=== PATIENT | female | born 2000 | race Caucasian/White ===

== ENCOUNTER 2024-07-22 09:01 | Emergency (ER) | payer OTHER, SELFPAY ==
--- NOTE | 2024-07-22 09:18 | ED.URI ---
HPI - URI/Sore Throat General Chief Complaint: Upper Respiratory Infection Stated Complaint: Congestion / cough / sore throat Time Seen by Provider: 07/22/24 09:18 History of Present Illness HPI Narrative: 24-year-old female presented for complaint of sore throat, nasal congestion and nonproductive cough. Onset yesterday. Denies shortness of breath, wheezing, vomiting, diarrhea, fever or lethargy. Has not taken anything for symptoms. She is 15 weeks gestation. Spoke with OBGYN who recommended evaluation. Related Data Home Medications ?Medication ?Instructions ?Recorded ?Confirmed ?Last Taken ?Type vit no.95-ferrous 1 tablet PO DAILY 07/22/24 07/22/24 Unknown History fumarate 28 mg-folic acid 800 mcg tablet () Allergies Allergy/AdvReac Type Severity Reaction Status Date / Time No Known Allergies Allergy Verified 07/22/24 09:19 Review of Systems Review of Systems: CONSTITUTIONAL: Denies body aches, fever, chills, or sweats. EYES: Denies visual changes, redness, or discharge. ENT: Reports rhinorrhea, congestion, sore throat CARDIOVASCULAR: Denies chest pain, palpitations, or edema. RESPIRATORY: Reports cough Denies dyspnea. GASTROINTESTINAL: Denies abdominal pain, nausea, vomiting, or diarrhea. MUSCULOSKELETAL: Denies back pain, joint pain, or myalgia. NEUROLOGIC: Denies headache Exam Narrative: GENERAL: well-appearing, no acute distress. EYES: conjunctivae clear ENT: Mucous membranes moist. TM pearly leo with normal light reflex bilaterally; no tragal tenderness. Oropharynx erythematous without lesions. Tonsils enlarged 1+ and without exudate. No drooling, no hoarseness, no trismus, uvula midline. No tripod positioning, hot potato voice, or soft palate swelling. NECK: Supple. No lymphadenopathy CHEST: Clear to auscultation, breath sounds equal. No respiratory distress, speaks in full sentences. HEART: Regular rate and rhythm. SKIN: Warm, dry, no rash. NEURO: Alert and oriented x3. Course Course Emergency Course: Patient is aware of diagnosis, understands and agrees to treatment plan. Anticipatory guidance given. Patient agrees to follow-up as directed and is aware of reasons to seek care at the emergency department. Portions of this record may have been created with voice recognition software Level of Care: Express Care Visit Vital Signs Vital signs: Vital Signs Temperature 99 F 07/22/24 09:19 Pulse Rate 95 07/22/24 09:19 Respiratory Rate 18 07/22/24 09:19 Blood Pressure 120/71 07/22/24 09:19 Pulse Oximetry 100 07/22/24 09:19 Oxygen Delivery Room Air 07/22/24 09:19 Temperature 99 F 07/22/24 09:19 Pulse Rate 95 07/22/24 09:19 Respiratory Rate 18 07/22/24 09:19 Blood Pressure 120/71 07/22/24 09:19 Pulse Oximetry 100 07/22/24 09:19 Oxygen Delivery Room Air 07/22/24 09:19 MDM - URI/Sore Throat MDM Narrative Medical decision making narrative: Results of negative flu, COVID, strep result reviewed with pt. Advise supportive treatments. Patient is appropriate for outpatient treatment and follow-up. Differential Diagnosis Differential diagnosis: Likely upper respiratory infection, sinusitis, viral infection, influenza and pharyngitis Discharge Plan Discharge Clinical Impression: Upper respiratory infection Patient Disposition: Home, Self-Care Condition: Stable Instructions: Upper Respiratory Infection (ED) Additional Instructions: Flu and COVID negative. Rapid strep swab was negative today You will be notified in a few days if the culture comes back positive for strep, and appropriate antibiotics will be called in at that time. if symptoms are due to a viral illness, it is not treated with antibiotics. Viral symptoms can be present for up to 10-14 days. Recommendations: Tract your OBGYN before taking any jfky-bgy-nzpbuqt medications during Flonase spray and Zyrtec for sinus congestion Cough syrup may cause drowsiness; avoid driving or take it at night time. Tylenol every 8 hours as needed for pain/fever Soft foods, cool liquids, warm tea. Gargle with warm saltwater twice a day. Chloraseptic spray and throat lozenges. Rest and stay hydrated. --Follow up with your PCP and spray technician --Go to the ER immediately if you cannot swallow your saliva, trouble breathing/wheezing, throat swelling, pain is persistent and severe Patient Language: Slovak Prescriptions: No Action PNV cmb#95-ferrous fumarate-FA [] 28 mg iron- 800 mcg tablet 1 tablet PO DAILY Follow-up/Referrals: Manolo,Abram Hunter MD [Primary Care Provider] -
[2024-07-22 09:19] VITALS: BP 120/71; PULSE 95; RESP 18; TEMP 37.2; O2SAT 100
[2024-07-22 10:16] LABS: EDINFLUASCREEN Negative (Negative); EDINFLUBSCREEN Negative (Negative)
[2024-07-22 10:16] LABS: EDCOVIDSCREEN Negative (Negative)
[2024-07-22 10:17] LABS: EDSTREPNEGPOS1 Negative (Negative)
== END 2024-07-22 10:08 | disposition home or self-care (01) ==
PROVIDERS: Emergency Provider Nurse Practitioner Family; PCP Family Medicine
DX: O99.512 Diseases of the respiratory system complicating pregnancy, second trimester (principal); Z3A.15 15 weeks gestation of pregnancy; J06.9 Acute upper respiratory infection, unspecified; Z20.822 Contact with and (suspected) exposure to COVID-19
CPT/HCPCS: 87081; 87426; 87804; 87880; 99203; G0463

== ENCOUNTER 2024-07-23 13:15 | Emergency (ER) | payer OTHER, SELFPAY ==
[2024-07-23 13:57] VITALS: BP 133/88; PULSE 102; RESP 18; TEMP 36.9; O2SAT 100
--- NOTE | 2024-07-23 15:53 | ED_ITS ---
HPI - General Adult General Chief complaint: Nausea/Vomiting/Diarrhea <Edis Mccauley PA-C - Last Filed: 07/23/24 16:49> Stated complaint: want checked COVID flu RSV negative <Edis Mccauley PA-C - Last Filed: 07/23/24 16:49> Time Seen by Provider: 07/23/24 18:43 <Edis Mccauley PA-C - Last Filed: 07/23/24 16:49> Focused HPI: This is a 24-year-old female who is approximately 6 weeks who presents to the ED for chief complaint of N/V/D beginning last night. Patient reports that she has had onset of mildly productive cough as well hoarse voice. States she has had around 5 episodes of vomiting in the last 12 or so hours. Difficult to keep anything down. Has not had any hyperemesis gravidarum previously. States she had negative viral swabs at urgent care yesterday. She was told to go to the ER by her OB to have her lab work checked to make sure she is not dehydrated. Denies fevers, chills, abdominal pain, vaginal symptoms. GENERAL: Well-appearing, well-nourished, and in no acute distress. HEAD: Normocephalic, atraumatic. CHEST: Clear to auscultation. No respiratory distress. HEART: Regular rate and rhythm. NEURO: Alert and oriented x3. Patient screened in triage and initial orders placed. Additional care and disposition to be based upon diagnostic testing and treatment. <Edis Mccauley PA-C - Last Filed: 07/23/24 16:49> Source: patient <Edis Mccauley PA-C - Last Filed: 07/23/24 16:49> Mode of arrival: ambulatory <SHERRILL Torres Last Filed: 07/23/24 16:49> Limitations: no limitations <SHERRILL Torres Last Filed: 07/23/24 16:49> History of Present Illness HPI narrative: Agree with the above note. Denies vaginal bleeding, leakage of fluids, known fever, abdominal pain. This is . Her OBGYN is at [facility]. Denies dysuria, hematuria. <Judie Love PA-C - Last Filed: 07/24/24 03:44> Related Data Home medications: Home Medications ?Medication ?Instructions ?Recorded ?Confirmed ?Last Taken ?Type vit no.95-ferrous 1 tablet PO DAILY 07/22/24 07/22/24 Unknown History fumarate 28 mg-folic acid 800 mcg tablet () <SHERRILL Torres Last Filed: 07/23/24 16:49> Allergies/adverse reactions: Allergies Allergy/AdvReac Type Severity Reaction Status Date / Time No Known Allergies Allergy Verified 07/22/24 09:19 <SHERRILL Torres Last Filed: 07/23/24 16:49> Review of Systems 2 Review of Systems: All systems reviewed & are unremarkable except as noted in HPI and below <Judie Love PA-C - Last Filed: 07/24/24 03:44> Exam 2 Narrative: GENERAL: Well-appearing, well-nourished, and in no acute distress. HEAD: Normocephalic, atraumatic. EYES: PERRLA and EOMI. ENT: Nares clear, no rhinorrhea or epistaxis. Mucous membranes moist. NECK: Supple. CHEST: Clear to auscultation. No respiratory distress. HEART: Regular rate and rhythm. No murmur heard. Normal peripheral pulses. ABDOMEN: Soft, nontender, nondistended, normal active bowel sounds. No rebound, guarding or rigidity. No CVA tenderness EXTREMITIES: Normal range of motion. No edema. SKIN: Warm, dry, no rash. NEURO: No focal deficits. Alert and oriented x3 <Judie Love PA-C - Last Filed: 07/24/24 03:44> Course Vital Signs Vital signs: Vital Signs Temperature 98.5 F 07/23/24 13:57 Pulse Rate 102 H 07/23/24 13:57 Respiratory Rate 18 07/23/24 13:57 Blood Pressure 133/88 07/23/24 13:57 Pulse Oximetry 100 07/23/24 13:57 Temperature 98.2 F 07/23/24 21:33 Pulse Rate 99 07/23/24 21:33 Respiratory Rate 18 07/23/24 21:33 Blood Pressure 122/82 07/23/24 21:33 Pulse Oximetry 99 07/23/24 21:33 <Edis Mccauley PA-C - Last Filed: 07/23/24 16:49> Vital Signs Temperature 98.5 F 07/23/24 13:57 Pulse Rate 102 H 07/23/24 13:57 Respiratory Rate 18 07/23/24 13:57 Blood Pressure 133/88 07/23/24 13:57 Pulse Oximetry 100 07/23/24 13:57 Temperature 98.2 F 07/23/24 21:33 Pulse Rate 99 07/23/24 21:33 Respiratory Rate 18 07/23/24 21:33 Blood Pressure 122/82 07/23/24 21:33 Pulse Oximetry 99 07/23/24 21:33 <Judie Love PA-C - Last Filed: 07/24/24 03:44> Medical Decision Making MDM Narrative Medical decision making narrative: 24-year-old female who is currently 15 weeks presents to the emergency department for cough, congestion, sore throat, generalized malaise, nausea and vomiting for the past few days. See HPI for further history. Triage vitals with mild tachycardia 102, otherwise unremarkable. She is afebrile and nontoxic appearing resting comfortably in exam bed. No abdominal pain or cramping, no vaginal bleeding or leakage of fluids. Patient reportedly had negative COVID, flu and strep swabs at urgent care.. She did test positive for RSV today. Lung sounds are clear on exam. Her lab work shows no leukocytosis or anemia. Chemistries significant for bicarb of 18 with anion gap of 13, normal glucose. Findings consistent with dehydration. Urinalysis shows 11-20 wbc's, 1+ leuk esterase, 4+ ketonuria and 2+ bacteriuria. Urine culture pending. She denies signs or symptoms of UTI, however given will treat with Keflex for asymptomatic bacteriuria . Phosphorus and magnesium are normal. Patient was updated on workup. She received IV fluids and Reglan with significant improvement. She is tolerating p.o. intake. Feel she is safe to be discharged home with supportive care. Discussed bland diet, increase fluid intake and close follow-up with PCP. Keflex, doxylamine of the right lung sent to pharmacy. Return precautions were discussed. She is agreeable with the plan verbalized understanding. Discharged in stable condition <SHERRILL Trinidad Last Filed: 07/24/24 03:44> Vital Signs Vital Signs: Vital Signs Temperature 98.5 F 07/23/24 13:57 Pulse Rate 102 H 07/23/24 13:57 Respiratory Rate 18 07/23/24 13:57 Blood Pressure 133/88 07/23/24 13:57 Pulse Oximetry 100 07/23/24 13:57 Temperature 98.2 F 07/23/24 21:33 Pulse Rate 99 07/23/24 21:33 Respiratory Rate 18 07/23/24 21:33 Blood Pressure 122/82 07/23/24 21:33 Pulse Oximetry 99 07/23/24 21:33 <SHERRILL Torres Last Filed: 07/23/24 16:49> Vital Signs Temperature 98.5 F 07/23/24 13:57 Pulse Rate 102 H 07/23/24 13:57 Respiratory Rate 18 07/23/24 13:57 Blood Pressure 133/88 07/23/24 13:57 Pulse Oximetry 100 07/23/24 13:57 Temperature 98.2 F 07/23/24 21:33 Pulse Rate 99 07/23/24 21:33 Respiratory Rate 18 07/23/24 21:33 Blood Pressure 122/82 07/23/24 21:33 Pulse Oximetry 99 07/23/24 21:33 <SHERRILL Trinidad Last Filed: 07/24/24 03:44> Lab Data Result diagrams: 07/23/24 16:49 07/23/24 16:50 <SHERRILL Torres Last Filed: 07/23/24 16:49> Labs: Lab Results 07/23/24 07/23/24 07/23/24 Range/Units 16:49 16:50 16:56 WBC 5.6 (4.5-10.0) K/mm3 RBC 4.24 (4.2-5.4) M/mm3 Hgb 12.9 (12.0-15.0) g/dL Hct 36.8 L (37.0-47.0) % MCV 86.8 (80-100) fl MCH 30.4 (26-34) pg MCHC 35.1 (32-36) g/dl RDW 12.0 (11.5-14.5) % Plt Count 209 (150-375) k/mm3 MPV 10.8 H (7.4-10.4) fl Immature Gran % (Auto) 0.2 (0-0.5) % Neut % (Auto) 78.9 H (45.5-73.1) % Lymph % (Auto) 11.7 L (18.3-44.2) % [place] % (Auto) 8.6 H (2.6-8.5) % Eos % (Auto) 0.2 (0-4.4) % Baso % (Auto) 0.4 (0.2-1.2) % Lymph # (Auto) 0.65 L (0.9-3.2) K/mm3 [place] # (Auto) 0.5 (0.1-0.6) K/mm3 Eos # (Auto) 0.0 (0-0.3) K/mm3 Baso # (Auto) 0.0 (0.0-0.1) K/mm3 Abs Immat Gran (auto) 0.01 (0.00-0.031) K/mm3 Absolute Neuts (auto) 4.4 (1.3-6.7) K/mm3 Absolute Nucleated RBC 0.000 (0.0-0.012) K/mm3 Nucleated RBC % 0.0 (0.0-0.2) % Sodium Cancelled 134 L Potassium Cancelled 3.8 Chloride Cancelled 103 Carbon Dioxide Cancelled 18 L Anion Gap Cancelled 13 H BUN Cancelled 7 Creatinine Cancelled 0.38 L Estim Creat Clear Calc Cancelled 159 Estimated GFR Cancelled > 60 Glucose Cancelled 77 Calcium Cancelled 9.5 Phosphorus 3.7 (2.5-4.5) mg/dL Magnesium 2.2 (1.6-2.3) mg/dL Total Bilirubin Cancelled 0.8 AST Cancelled 29 ALT Cancelled 13 Alkaline Phosphatase Cancelled 74 Total Protein Cancelled 8.0 Albumin Cancelled 4.7 Urine Color Yellow (Yellow) Urine Appearance Cloudy H (Clear) Urine pH 5.5 (5.0-9.0) Ur Specific [place] 1.026 (1.001-1.035) Urine Protein Trace (Negative) mg/dL Urine Glucose (UA) Negative (Negative) mg/dL Urine Ketones 4+ H (Negative) mg/dL Ur Blood (Man) Negative (Negative) Urine Nitrate Negative (Negative) Urine Bilirubin Negative (Negative) Urine Urobilinogen 0.2 (<2.0) mg/dL Leukocyte Esterase Rfl 1+ H (Negative) BERNA/UL Urine RBC 0-2 (0-2) /hpf Urine WBC 11-20 H (0-3) /hpf Ur Squamous Epith Cells Occasional (Few) /hpf Urine Bacteria 2+ H /hpf Urine Casts 0-2 Influenza A (RT-PCR) Negative (Negative) Influenza B (RT-PCR) Negative (Negative) RSV (RT-PCR) Positive A (Negative) SARS-CoV-2 RNA (RT-PCR) Negative (Negative) <Edis Mccauley PA-C - Last Filed: 07/23/24 16:49> Lab Results 07/23/24 07/23/24 07/23/24 Range/Units 16:49 16:50 16:56 WBC 5.6 (4.5-10.0) K/mm3 RBC 4.24 (4.2-5.4) M/mm3 Hgb 12.9 (12.0-15.0) g/dL Hct 36.8 L (37.0-47.0) % MCV 86.8 (80-100) fl MCH 30.4 (26-34) pg MCHC 35.1 (32-36) g/dl RDW 12.0 (11.5-14.5) % Plt Count 209 (150-375) k/mm3 MPV 10.8 H (7.4-10.4) fl Immature Gran % (Auto) 0.2 (0-0.5) % Neut % (Auto) 78.9 H (45.5-73.1) % Lymph % (Auto) 11.7 L (18.3-44.2) % [place] % (Auto) 8.6 H (2.6-8.5) % Eos % (Auto) 0.2 (0-4.4) % Baso % (Auto) 0.4 (0.2-1.2) % Lymph # (Auto) 0.65 L (0.9-3.2) K/mm3 [place] # (Auto) 0.5 (0.1-0.6) K/mm3 Eos # (Auto) 0.0 (0-0.3) K/mm3 Baso # (Auto) 0.0 (0.0-0.1) K/mm3 Abs Immat Gran (auto) 0.01 (0.00-0.031) K/mm3 Absolute Neuts (auto) 4.4 (1.3-6.7) K/mm3 Absolute Nucleated RBC 0.000 (0.0-0.012) K/mm3 Nucleated RBC % 0.0 (0.0-0.2) % Sodium Cancelled 134 L Potassium Cancelled 3.8 Chloride Cancelled 103 Carbon Dioxide Cancelled 18 L Anion Gap Cancelled 13 H BUN Cancelled 7 Creatinine Cancelled 0.38 L Estim Creat Clear Calc Cancelled 159 Estimated GFR Cancelled > 60 Glucose Cancelled 77 Calcium Cancelled 9.5 Phosphorus 3.7 (2.5-4.5) mg/dL Magnesium 2.2 (1.6-2.3) mg/dL Total Bilirubin Cancelled 0.8 AST Cancelled 29 ALT Cancelled 13 Alkaline Phosphatase Cancelled 74 Total Protein Cancelled 8.0 Albumin Cancelled 4.7 Urine Color Yellow (Yellow) Urine Appearance Cloudy H (Clear) Urine pH 5.5 (5.0-9.0) Ur Specific [place] 1.026 (1.001-1.035) Urine Protein Trace (Negative) mg/dL Urine Glucose (UA) Negative (Negative) mg/dL Urine Ketones 4+ H (Negative) mg/dL Ur Blood (Man) Negative (Negative) Urine Nitrate Negative (Negative) Urine Bilirubin Negative (Negative) Urine Urobilinogen 0.2 (<2.0) mg/dL Leukocyte Esterase Rfl 1+ H (Negative) BERNA/UL Urine RBC 0-2 (0-2) /hpf Urine WBC 11-20 H (0-3) /hpf Ur Squamous Epith Cells Occasional (Few) /hpf Urine Bacteria 2+ H /hpf Urine Casts 0-2 Influenza A (RT-PCR) Negative (Negative) Influenza B (RT-PCR) Negative (Negative) RSV (RT-PCR) Positive A (Negative) SARS-CoV-2 RNA (RT-PCR) Negative (Negative) <Judie Love PA-C - Last Filed: 07/24/24 03:44> Discharge Plan Discharge Clinical Impression: Respiratory syncytial virus (RSV), Dehydration, Asymptomatic bacteriuria during <Edis Mccauley PA-C - Last Filed: 07/23/24 16:49> Patient Disposition: Home, Self-Care <SHERRILL Torres Last Filed: 07/23/24 16:49> Condition: Stable <SHERRILL Torres Last Filed: 07/23/24 16:49> Instructions: Antibiotic Form, Dehydration (ED), RSV (Respiratory Syncytial Virus) Infection (ED) <SHERRILL Torres Last Filed: 07/23/24 16:49> Additional Instructions: Please make sure to drink plenty of fluids including water, Gatorade and Pedialyte. Take Tylenol as needed for the aches and pain. Take the antibiotic as directed. Follow-up closely with her primary care provider. Return to the emergency department if you develop a fever of 100.4 or greater, abdominal pain, vaginal bleeding or leakage of fluids, you are unable to tolerate food or fluids, or other concerning symptoms. Take the dexylamine as needed for nausea and vomiting. If nausea and vomiting persists, take metoclopramide. <SHERRILL Torres Last Filed: 07/23/24 16:49> Patient Language: Mexican <SHERRILL Torres Last Filed: 07/23/24 16:49> Prescriptions: New cephalexin 500 mg capsule 500 mg PO Q6H Qty: 28 0RF doxylamine-pyridoxine (vit B6) 10-10 mg tablet,delayed release (DR/EC) 1 tablet PO BID Qty: 30 0RF metoclopramide HCl 10 mg tablet 10 mg PO Q6H PRN (Reason: nausea and vomiting) Qty: 10 0RF No Action PNV cmb#95-ferrous fumarate-FA [] 28 mg iron- 800 mcg tablet 1 tablet PO DAILY <SHERRILL Torres Last Filed: 07/23/24 16:49> Follow-up/Referrals: Manolo,Abram Hunter MD [Primary Care Provider] - <SHERRILL Torres Last Filed: 07/23/24 16:49>
[2024-07-23 17:01] LABS: Basophils Percent Auto 0.4 % (0.2-1.2); Eosinophils Percent Auto 0.2 % (0-4.4); Hematocrit 36.8 % (37.0-47.0); Hemoglobin 12.9 g/dL (12.0-15.0); Immature Granulocyte Absolute 0.01 K/mm3 (0.00-0.031); Immature Granulocyte Percent A 0.2 % (0-0.5); Lymphocytes Absolute Auto 0.65 K/mm3 (0.9-3.2); Lymphocytes Percent Auto 11.7 % (18.3-44.2); Mean Corpuscular HGB Conc 35.1 g/dl (32-36); Mean Corpuscular Hemoglobin 30.4 pg (26-34); Mean Corpuscular Volume 86.8 fl (80-100); Mean Platelet Volume 10.8 fl (7.4-10.4); Monocytes Absolute Auto 0.5 K/mm3 (0.1-0.6); Monocytes Percent Auto 8.6 % (2.6-8.5); Neutrophils Absolute Auto 4.4 K/mm3 (1.3-6.7); Neutrophils Percent Auto 78.9 % (45.5-73.1); Platelet Count Result 209 k/mm3 (150-375); Red Blood Count 4.24 M/mm3 (4.2-5.4); White Blood Count 5.6 K/mm3 (4.5-10.0)
[2024-07-23 17:08] LABS: Add Urine Microscopic? YES; Appearance Urine Cloudy (Clear); Bacteria Urine 2+ /hpf; Bilirubin Urine Negative (Negative); Blood Urine Negative (Negative); Color Urine Yellow (Yellow); Glucose Urine UA Negative (Negative); Ketones Urine 4+ mg/dL (Negative); Leukocyte Esterase Ur 1+ LEU/UL (Negative); Nitrate Urine Negative (Negative); Non Pathogenic Casts 0-2; Protein Urine Trace mg/dL (Negative); RBC Urine 0-2 /hpf (0-2); Specific Grav Ur 1.026 (1.001-1.035); Squamous Epithelial Cell Urine Occasional /hpf (Few); Urobilinogen Urine 0.2 mg/dL (<2.0); pH Urine 5.5 (5.0-9.0)
[2024-07-23 17:12] LABS: Alanine Aminotransferase 13 U/L (6-35); Albumin Level 4.7 g/dL (3.5-5.1); Alkaline Phosphatase 74 U/L (38-126); Anion Gap 13 mmol/L (4-12); Aspartate Amino Transferase 29 U/L (14-36); Bilirubin,Total 0.8 mg/dL (0.2-1.3); Blood Urea Nitrogen 7 mg/dL (7-17); Calcium 9.5 mg/dL (8.4-10.2); Carbon Dioxide 18 mmol/L (22-30); Chloride 103 mmol/L (98-107); Estimated CRCL calculation 159 ml/min; Estimated Glomerular Filt Rate > 60; Glucose 77 mg/dL (65-110); Magnesium 2.2 mg/dL (1.6-2.3); Phosphorus 3.7 mg/dL (2.5-4.5); Potassium 3.8 mmol/L (3.4-5.0); Sodium 134 mmol/L (137-145)
[2024-07-23 17:35] LABS: Influenza A QL RT-PCR Negative (Negative); Influenza B QL RT-PCR Negative (Negative); RSV RNA, RT-PCR Positive (Negative); SARS-CoV-2 RNA PCR Negative (Negative)
[2024-07-23 17:47] VITALS: BP 127/79; PULSE 104; RESP 20; TEMP 36.9; O2SAT 100
[2024-07-23 19:46] VITALS: BP 124/83; PULSE 106; RESP 20; TEMP 36.8; O2SAT 100
[2024-07-23] MEDS: METOCLOPRAMIDE HCL INJ 10 MG/2 ML VIAL IV PUSH (19:50)
[2024-07-23] MEDS: LACTATED RINGERS 1,000 ML 999 ML IV CONT (19:52)
[2024-07-23 21:33] VITALS: BP 122/82; PULSE 99; RESP 18; TEMP 36.8; O2SAT 99
== END 2024-07-23 21:34 | disposition home or self-care (01) ==
PROVIDERS: Physician Assistant; Emergency Provider Physician Assistant; PCP Family Medicine
DX: O98.512 Other viral diseases complicating pregnancy, second trimester (principal); R05.9 Cough, unspecified; B97.4 Respiratory syncytial virus as the cause of diseases classified elsewhere; Z20.822 Contact with and (suspected) exposure to COVID-19; Z3A.15 15 weeks gestation of pregnancy
CPT/HCPCS: 36415; 80053; 81001; 83735; 84100; 85025; 87086; 87637; 96361; 96374; 99284; J2765; J7120

== ENCOUNTER 2024-08-23 12:33 | Emergency (ER) | payer OTHER, SELFPAY ==
--- OUTSIDE RECORDS SUMMARY | 2024-08-23 12:45 | XMS_ITS | Encounter Summary ---
Author Organization 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 Procedures US OB detail anatomy single or first gestation Michelle Anaya MD [address] [facility] [address] [place] [address] Phone: tel: fax: [facility] [address] [place] [address] Referral ID Status Reason Start Date Expiration Date Visits Re quested Visits Authorized [id number] Closed 08/10/2024 09/09/2025 1 1 UCT LINE MANAGER Reason for Visit * Diagnostic Imaging (Routine) - Closed Specialty Diagnoses / Procedures Referred By Contiraida t Referred To Contact Diagnoses 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 Procedures US OB detail anatomy single or first gestation Michelle Anaya MD [address] [place] [address] [place] [address] Phone: tel: fax: [place] [address] [place] [address] Referral ID Status Reason Start Date Expiration Date Visits Re quested Visits Authorized [id number] Closed 08/10/2024 09/09/2025 1 1 Encounter Details Date Type Department Care Team (Latest Contact Info) Description 08/23/2024 9:39 AM PRODUCT LINE MANAGER Hospital Encounter [facility] Maternal Medicine Ultrasound[facility] [address] [place] [address] 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 Monthly or less 12/29/2020 Q2: How many drinks containi ng alcohol do you have on a typical day when you are drinking? 1 or 2 12/29/2020 Q3: How often do you have si x or more drinks on one occasion? Monthly 12/29/2020 Personal Safety Answer Date Recorded Have you ever been in or are you currently in a harmful physical or emotional relationship or is someone making you feel afraid or unsafe? Denies 06/29/2024 Estimated Date of Delivery Comme nts Yes 01/09/2025 Based on last me nstrual period of 04/04/2024 Sex and Gender Information Value Date Recorded Sex Assigned at Not on file Legal Sex Female 1:30 AM PRODUCT LINE MANAGER Gender Identity Not on file Sexual Orientation Straight 08/21/2020 10 :21 AM PRODUCT LINE MANAGER documented as of this encounter Plan of Treatment Upcoming Encounters Date Type Department Care Team (Late st Contact Info) Description 01/12/2025 Hospital Encounter [facility] [address] [place] [id number] Michelle Anaya MD [address] [facility] [address] [place] [address] documented as of this encounter Procedures Procedure Name Priority Date/Time Associated Diagnosis Comments US OB DETAIL ANATOMY SINGLE OR FIRST GESTATION Schedule Routine, Read Routine (OP Routine) 08/23/2024 11:29 AM PRODUCT LINE MANAGER 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 documented in this encounter Results * US OB detail anatomy single or first gestation (08/23/2024 11:29 AM PRODUCT LINE MANAGER) Fetus# Fetus1 VIEWPOINT Estimated Weight 300 g&grams VIEWPOINT Placenta Details anterior VIEWPOINT Presentation Breech VIEWPOINT Anatomical Region Laterality Modality Body N/A Ultrasound 08/23/2024 10:1 0 AM PRODUCT LINE MANAGER Impressions 08/23/2024 12:04 PM PRODUCT LINE MANAGER SIUP @ 20w 0d with positive cardiac activity. position is Breech size is consistent with the clinically established dates. AGA growth is noted with EFW at the 24%. There is a small area of increased echogenicity of the bowel note and this is persistent with harmonics off and gain turned down. There are no structural malformations identified. Normal fluid. The placenta is anterior, there are no placental abnormalities identified. The findings were discussed with the patient as live scanning was necessary to appropriately evaluate for echogenic bowel. The patient reports bleeding in the first trimester. She has had low risk cfDNA. We briefly discussed etiologies for echogenic bowel including bleeding but also infectious and genetic. She indicated she had discussed this with Dr. Anaya but they were waiting on US Before obtaining further labs. I reviewed the findings are minimal in terms of area of echogenicity but out of caution I will contact Dr. Anaya and obtain the remaining labs for infection and genetic (outlined below) and recommend followup in 4 weeks to re-evaluate. Narrative Procedure Note Kimi Billingsley DO - 08/23/2024 IMPRESSION: SIUP @ 20w 0d with positive cardiac activity. position is Breech size is consistent with the clinically established dates. AGA growth is noted with EFW at the 24%. There is a small area of increased echogenicity of the bowel note and thisis persistent with harmonics off and gain turned down. There are no structural malformations identified. Normal fluid. The placenta is anterior, there are no placental abnormalities identified. The findings were discussed with the patient as live scanning wasnecessary to appropriately evaluate for echogenic bowel. The patient reports bleeding in the first trimester. She has had low risk cfDNA. We briefly discussed etiologies for echogenic bowel including bleeding butalso infectious and genetic. She indicated she had discussed this with but they were waiting on US Before obtaining further labs. Ireviewed the findings are minimal in terms of area of echogenicity but outof caution I will contact Dr. Anaya and obtain the remaining labs forinfection and genetic (outlined below) and recommend followup in 4 weeksto re-evaluate. 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
--- OUTSIDE RECORDS SUMMARY | 2024-08-23 12:45 | XMS_ITS | Clinical Summary ---
Author Organization [facility] ospital Address [address] [place] [address] Care Team Providers Care Va Underwriter Name Role Phone Abram French MD Primary Care Provider [phone] Allergies No known active allergies Medications vit,[id number]- folic (PRENATABS RX) tablet tabletIndication s:Procreative counseling and advice using natural family planning Take 1 tablet by mouth daily 30 tablet 11 3 Active progesterone (PROMETRIUM) 200 mg capsule Take 1 capsule (200 mg total) by mouth nightly 30 capsule 3 4 Active Additional Information Patient not taking.Reported on 07/13/2024 nystatin cream 4 Active Xiidra 5 % dropperette 0.1 each (1 drop total) 2 (two) times a day 4 Active Active Problems Problem Noted Date Diagnosed Date Postcoital bleeding 06/30/2024 12 weeks gestation of 06/30/2024 Rh negative state in antepartum period 4 Susceptible to varicella (non-immune), currently 05/20/2024 Sebaceous cyst 05/11/2019 Assessment & Plan (05/11/2019 9:26 PM CDT): Pt was informed of possible complications of procedure and consent was obtained prior to procedure. Betadine skin prep 1% lido w/ epi was used to anesthetize the area. A #11 blade was used to make a 1.5cm incision. The cyst wall was identified and blunt dissection was used to completely remove cyst wall and content. Edges reapproximated well with 4 simple interrupted sutures using 4-0 ethilon. Pt tolerated procedure well without complications or incident. Routine dressing was applied. Pt was advised of routine suture care. Advised to call us with any concerns/complications. 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 Estimated Date of Delivery Comme nts Yes 01/09/2025 Based on last me nstrual period of 04/04/2024 Encounters Date Type Department Care Team Description 08/23/2024 9:39 AM GLASS SETTER Hospital Encounter [facility] Maternal Medicine Ultrasound-[facility] [address] [place] [address] 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 08/10/2024 3:00 PM GLASS SETTER [facility] [address] [phone] Michelle Barclay MD Encounter for supervision of other normal , second trimester (Primary Dx); 18 weeks gestation of ; 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 08/10/2024 2:00 PM GLASS SETTER Clinical Support [facility] [address] [place] [address] Encounter for anatomic survey (Primary Dx) 07/13/2024 10:45 AM GLASS SETTER Office Visit [facility] [address] [place] [address] Michelle Barclay MD Encounter for supervision of other normal , second trimester (Primary Dx); 14 weeks gestation of 06/29/2024 11:43 PM GLASS SETTER - 06/30/2024 1:09 AM GLASS SETTER Hospital Encounter [facility] [address] [place] [address] Michelle Barclay MD Postcoital bleeding (Primary Dx); 12 weeks gestation of Discharge Disposition: Discharge to home or self care 06/29/2024 Telephone [facility] [address] [phone] Afsaneh Garcia, RN Vaginal Bleeding - 06/23/2024 Telephone [facility] [address] [phone] Afsaneh Garcia, RN Test Results 06/14/2024 3:00 PM GLASS SETTER Office Visit [facility] [address] [address] Michelle Barclay MD Encounter for supervision of normal first in first trimester (Primary Dx); 9 weeks gestation of ; Encounter for procreative genetic counseling and testing 06/14/2024 2:30 PM GLASS SETTER Clinical Support [facility] [address] [phone] with inconclusive viability, single or unspecified fetus (Primary Dx) from Last 3 Months Immunizations Name Administration Dates Next Due DTaP, Unspecified 02/11/2005, 2,2000,06/03,2000 HPV, Unspecified 12/13/2013,01/08/2011 HPV9 03/02/2015 Hep A, Unspecified 02/11/2005,02/13/2004 Hep B, Unspecified 01/02/2001,2000, 000 HiB 05/04/2001, 1,2000,04/01 Influenza, Quadrivalent, Spl it, Preservative Free, Intramuscular 04/30/2017 MMR 02/11/2005,05/04/2001 Meningococcal ACWY, Unspecified 12/13/2013 Meningococcal B, OMV (Bexsero) 04/10/2017,2015 Meningococcal MCV4P (Menactra) 03/21/2016 Pneumococcal Conjugate 7-Valent 01/02/2001 Pneumococcal, Unspecified 2000,2000, 2000 Polio, Unspecified 02/11/2005, 1,2000,04/01 Tdap 01/08/2011 Varicella 01/08/2011,05/04/2001 Surgical History Surgery Date Site/Laterality Comments FINGER SURGERY 07/14/2010 - 07/13/2011 BREAST BIOPSY 08/14/2019 - 09/11/2019 Left benign. HYSTEROSCOPY 12/29/2020 Uterine Septum Resection Medical History Medical History Date Comments Acne Irregular periods Bicornuate uterus Headache Family History Medical History Relation Name Comments Hypertension Father Apolinar Breast cancer Father's Sister Ayla twice Cancer Father's Sister Ayla Endometriosis Father's Sister Ayla Infertile Father's Sister Ayla Glaucoma Maternal Grandmother No Known Problems Mother Anesthesia problems Neg Hx Colon cancer Neg Hx Deep vein thrombosis Neg Hx Ovarian cancer Neg Hx Uterine cancer Neg Hx Relation Name Status Comments Father Apolinar Alive Father's Sister Ayla Maternal Grandmother Mother Alive Social History Tobacco Use Types Packs/Day Years Used Date Smoking Tobacco: Never Smokeless Tobacco: Never Tobacco Cessation:Counseling Given: Not Answered Alcohol Use Standard Drinks/Week Comments Yes 0 [...] on file Legal Sex Female 1:30 AM GLASS SETTER Gender Identity Not on file Sexual Orientation Straight 08/21/2020 10 :21 AM GLASS SETTER Obstetrics History Para Term AB IAB SAB Ectopic Multiple Livin g Live Births 2 0 0 0 1 0 1 0 0 0 0 Date Outcome GA Total Labor Labor/2nd/3rd Weight Sex Type Anes PTL Megan A1 A5 Name Clin 05/2023 SAB Current Summary Episode Dates Number of Fetuses Estimated Date of Delivery 05/19/2024 - Present (08/23/2024) 01/09/2025 (set by Mago Starr PA on 05/19/2024 based on Last Menstrual Period on 04/04/2024) Dating Summary Based On ANTONIO GA Diff Last Menstrual Period on 04/04/2024 01/09/2025 Working Ultrasound on 05/19/2024 01/11/2025 -2d GA:6w1d Vitals Pregravid Weight Height TWG (As of 08/23/2024) Pregrav id BMI 162.6 cm (5' 4 ) Date GA Fund Present FHR Mvmt BP Weight Edema Alb Glu Ket Dil/ Eff/Sta 4 12w3d Inpatient data not displayed here. See encounter summary. Notes Progress Notes - Office Visi t - 08/10/2024 - GA:18w2d 08/10/2024 - 18w2d - Tracey olvera, Michelle Mccarty MD Return OB Note at 18w2d complicated by: 1) h/o uterine septum resection/bicornuate uterus: growths q4mo 2) migraines: tylenol 3) Rh neg 4) SAB x1: s/p progesterone 5) history of T21 on both sides (distant): NIPT low risk 6) Echogenic bowel-on anatomy US. Bleeding episode 06/2025. [facility] anatomy US f/u and labs ordered. CF testing negative S History of Present Illness Chaz is doing well. She reports feeling some movement from the baby, but it is not consistent. She notes that she usually has to be very still to feel the movement, typically when she is lying down. The patient had a bleeding episode about a month ago after intercourse. Was seen and evaluated and triage. No bleeding since then. she has no other symptoms or concerns at this time. O BP 122/64 (BP Location: Left arm, Patient Position: Sitting) Ht 162.6 cm (5' 4 ) Wt 133 lb (60.3 kg) LMP 04/04/2024 BMI 22.83 kg/m See ACOG Labs No results found for: GBS Plan Assessment & Plan Echogenic Bowel Detected on recent ultrasound, likely due to previous bleeding episode. No other abnormalities detected on ultrasound. Patient has negative carrier screen for cystic fibrosis and other genetic disorders. -Schedule follow-up ultrasound with maternal medicine in 3-4 weeks to reassess echogenic bowel and monitor growth. -Consider infectious workup if echogenic bowel persists on follow-up ultrasound. CMV and toxo ordered. Uterine Septum s/p resection -Continue regular visits and growth ultrasounds every 4 weeks due to h/o uterine septum. -Schedule growth ultrasound for 28-week visit. RTO 4 week(s) Michelle Barclay MD This patient has verbally consented to recording this visit in order to utilize AI technology in generating this note. S SETTER Progress Notes - Office Visi t - 07/13/2024 - GA:14w2d 07/13/2024 - 14w2d - Michelle Marino MD G1 @ 14.2wks here for LUCRETIA visit. Doing well. No further bleeding since the 3 days on 06/29. Feeling well. No movement yet. Placenta posterior. complicated by: 1) h/o uterine septum resection/bicornuate uterus: growths q4mo 2) migraines: tylenol 3) Rh neg 4) SAB x1: s/p progesterone 5) history of T21 on both sides (distant): NIPT low risk -discussed sleeping and movement -NIPT low risk. Anatomy US next visit S SETTER Progress Notes - Office Visi t - 06/14/2024 - GA:10w1d 06/14/2024 - 10w1d - Michelle Marino MD G1 @ 10.3wks here for LUCRETIA visit. Doing well. No complaints. complicated by: 1) h/o uterine septum resection/bicornuate uterus: growths q4mo 2) migraines: tylenol 3) Rh neg 4) SAB x1: Prometrium until 12 weeks 5) history of T21 on both sides (distant): desires NIPT -NIPT sent -growth US due to small septum and h/o resection -Continue progesterone until 12 weeks S SETTER S SETTER Progress Notes - Office Visi t - 05/19/2024 - GA:6w3d 05/19/2024 - 6w3d - Mago Starr PA Images from the original note were not included. Patient ID: Chaz Santiago is a 24 y.o. female Subjective Chief Complaint: New OB HPI Chaz is a 24 y.o. yo at 6wks by LMP (Patient's last menstrual period was 04/04/2024.) here for NOB visit. This is a planned and desired with Rebecca. Since LMP she reports mild fatigue. Denies any complications thus far during the . G1: SAB in 05/2023 Review of Systems Constitutional: Negative. Negative for fatigue. Respiratory: Negative for chest tightness and shortness of breath. Gastrointestinal: Negative for blood in stool, diarrhea, nausea and vomiting. Endocrine: Negative. Genitourinary: Negative for dyspareunia, dysuria, enuresis, frequency, menstrual problem, pelvic pain, vaginal bleeding, vaginal discharge and vaginal pain. Musculoskeletal: Negative for arthralgias, back pain, gait problem, joint swelling and myalgias. Skin: Negative for color change, pallor, rash and wound. Neurological: Negative. Hematological: Does not bruise/bleed easily. Psychiatric/Behavioral: Negative. Breast: Negative. Dating: Working Critiera: LMP Patient's last menstrual period was 04/04/2024. -> ANTONIO: 01/09/2025 US Date: 05/19/2024, Gest Age 6w1d -> ANTONIO: 01/11/2025 History: OB History Para Term AB Living 1 0 0 0 0 0 SAB IAB Ectopic Multiple Live Births 0 0 0 0 0 # Outcome Date GA Lbr Glenn/2nd Weight Sex Type Anes PTL Lv 1 Current Genetic History: [-] Mother's Age > 34 years [-] Sickle Cell Disease or Trait () [-] Thalasemia (French, Micronesian, Medit or ; MCV <80) [-] Trent Sachs Disease (Hinduism, Cajun, Slovak Jet) [X] Down Syndrome: patient's mothers aunt, FOB cousin (mom's side) [-] Neural Tube Defects (Meningomyelocele, Spina Bifida or Anencephaly) [-] Other Developmental Delay [-] Cystic Fibrosis [-] Drea's Chorea [-] Muscular Dystrophy [-] Hemophilia [-] Other Heritable condition 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 She has regular cycles. Her last pap smear was normal in 2020. She denies h/o STDS or HSV. Medical She has a past medical history of Acne, Bicornuate uterus, Headache, and Irregular periods. She has no past medical history of Awareness under anesthesia, Cardiac complication, Delayed emergence from general anesthesia, Hard to intubate, Malignant hyperthermia, PONV (postoperative nausea and vomiting), Postoperative delirium, or Pseudocholinesterase deficiency. Surgical She has a past surgical history that includes Finger surgery (2010); Breast biopsy (Left, 08/2019); and Hysteroscopy (12/29/2020). Social Patient Social History Tobacco Use Smoking Status Never Smokeless Tobacco Never Substance and Sexual Activity Drug Use Never Alcohol Use: Alcohol Misuse (12/29/2020) AUDIT-C Frequency of Alcohol Consumption: Monthly or less Average Number of Drinks: 1 or 2 Frequency of Binge Drinking: Monthly She denies any illicit or IV drug use and does not currently drink alcohol She lives at home with Rebecca (). She works as a pediatric dental assistance. She does not have cats in the home. She had chicken pox/vaccine as a child Meds Current Outpatient Medications: vit,[id number] (PRENATABS RX) tablet tablet, Take 1 tablet by mouth daily, Disp: 30 tablet, Rfl: 11 progesterone (PROMETRIUM) 200 mg capsule, Take 1 capsule (200 mg total) by mouth nightly, Disp: 30 capsule, Rfl: 3 Allergies Patient has no known allergies. Objective BP 104/70 (BP Location: Left arm, Patient Position: Sitting) Ht 162.6 cm (5' 4 ) Wt 130 lb (59 kg) LMP 04/04/2024 BMI 22.31 kg/m Gen-NAD Breasts-deferred Resp-normal effort Pelvic-deferred Ext-no edema or tenderness TVUS- Assessment/Plan Chaz was seen today for initial visit. Diagnoses and all orders for this visit: Encounter for supervision of normal first in first trimester - Type and screen; Future - Urine culture Urine, clean voided; Future - Varicella Zoster IgG antibody Blood; Future - Rubella IgG antibody Blood; Future - CBC with auto differential; Future - POCT OB urine short dip (glucose, protein, ketones) - Urine culture Urine, clean voided Screening for venereal disease - Hepatitis B Surface Antigen Blood; Future - N. gonorrhoeae/C. trachomatis Amplification Urine; Future - Trichomonas vaginalis PCR Urine; Future - HIV 1/2 Antibody plus p24 Antigen Blood; Future - RPR Blood; Future - Hepatitis C antibody Blood; Future - Trichomonas vaginalis PCR Urine - N. gonorrhoeae/C. trachomatis Amplification Urine Bicornuate uterus Intractable migraine without aura and without status migrainosus - PNV daily - OB labs ordered. Discussed options for testing for cystic fibrosis, SMA and Fragile X. - Genetic screening offered including first look screen, NIPT and quad screen. Patient desires with gender in envelope - Reviewed course of care and normal - Dietary and activity restrictions reviewed - SAB precautions reviewed in detail - Practice set up and handouts given - Follow up in 3 weeks for repeat US due to early dating today complicated by: 1) h/o uterine septum resection/bicornuate uterus: growths q4mo 2) migraines: tylenol 3) Rh neg 4) SAB x1: Prometrium until 12 weeks 5) history of T21 on both sides (distant): desires NIPT Mago Starr PA-C Cosigned by Michelle Barclay MD at 05/19/2024 11:57 AM GLASS SETTER S SETTER S SETTER Last Filed Vital Signs Vital Sign Reading Time Taken Comments Blood Pressure 122/64 08/10/2024 1:58 PM GLASS SETTER Pulse 87 06/29/2024 11:49 PM GLASS SETTER Temperature 36.9 C (98.4 F) 06/29/2024 11:49 PM GLASS SETTER Respiratory Rate 18 06/29/2024 8:18 PM GLASS SETTER Oxygen Saturation 100% 06/29/2024 8:18 PM GLASS SETTER Inhaled Oxygen Concentration - - Weight 60.3 kg (133 lb) 08/10/2024 1:58 PM GLASS SETTER Height 162.6 cm (5' 4 ) 08/10/2024 1:58 PM GLASS SETTER Body Mass Index 22.83 08/10/2024 1:58 PM GLASS SETTER Plan of Treatment Upcoming Encounters Date Type Department Care Team (Late st Contact Info) Description 01/12/2025 Hospital Encounter [facility] [address] [place] [address] Michelle Barclay MD [facility] [address] [address] Health Maintenance Due Date Last Done Comments Depression Screening 2000 DTaP/Tdap/Td Vaccine (7 - Td or Tdap) 01/08/2021 01/08/2011, 02/11/2005, 09/04/2001, Additional history exists Influenza Vaccine (#1) 2024 04/30/2017 Regular Well Visit/Exam 18-64 05/02/2024 05/02/2023, 04/02/2022, 02/05/2021, Additional history exists Cervical Cancer Screening 05/05/2024 02/05/2021 Chlamydia and Gonorrhea (GC/CT) Screening 05/19/2025 05/19/2024, 02/05/2021 Hepatitis B Screening Completed 01/02/2001 , 2000, 2000 Pneumococcal vaccine <65 Aged Out 001, 2000, 2000, Additional history exists No longer eligible based on patient's age to complete this topic Varicella Vaccines Completed 01/08/2011, 05/04/2001 HPV Vaccines Completed 03/02/2015, 08/2013, 01/08/2011 Hepatitis C Screening Completed 05/19/2024 Procedures Procedure Name Priority Date/Time Associated Diagnosis Comments US OB DETAIL ANATOMY SINGLE OR FIRST GESTATION Schedule Routine, Read Routine (OP Routine) 08/23/2024 11:29 AM GLASS SETTER 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 POCT OB URINE SHORT DIP (GLUCOSE, PROTEIN, KETONES) Routine 08/10/2024 2:32 PM GLASS SETTER Encounter for supervision of other normal , second trimester 18 weeks gestation of US OB 14 WEEKS OR OVER Schedule Routine, Read Routine (OP Routine) 08/10/2024 1:39 PM GLASS SETTER Encounter for anatomic survey DIFFERENTIAL AUTO STAT 06/29/2024 8:2 7 PM GLASS SETTER ABO/RH STAT 06/29/2024 8:27 PM GLASS SETTER HCG, BLOOD, QUANTITATIVE STAT 06/29/2024 8:27 PM GLASS SETTER CBC WITH AUTO DIFFERENTIAL STAT 06/29/2024 8:27 PM GLASS SETTER POCT OB URINE SHORT DIP (GLUCOSE, PROTEIN, KETONES) Routine 06/14/2024 3:40 PM GLASS SETTER Encounter for supervision of normal first in first trimester 9 weeks gestation of US OB UNDER 14 WEEKS Schedule Routine, Read Routine (OP Routine) 06/14/2024 2:19 PM GLASS SETTER with inconclusive viability, single or unspecified fetus PANORAMA TEST Routine 06/14/2024 2:01 PM GLASS SETTER Encounter for supervision of normal first in first trimester 9 weeks gestation of Encounter for procreative genetic counseling and testing HEPATITIS C ANTIBODY Routine 05/19/2024 10:09 AM GLASS SETTER Screening for venereal disease N. GONORRHOEAE/C. TRACHOMATIS AMPLIFICATION Routine 05/19/2024 10:03 AM GLASS SETTER Screening for venereal disease PAP WITH REFLEX TO HIGH RISK HPV Routine 02/05/2021 10:36 AM CDT Well female exam with routine gynecological exam from Last 3 Months or Most Recently Relevant to Health Maintenance Results * US OB detail anatomy single or first gestation (08/23/2024 11:29 AM GLASS SETTER) Fetus# Fetus1 VIEWPOINT Estimated Weight 300 g&grams VIEWPOINT Placenta Details anterior VIEWPOINT Presentation Breech VIEWPOINT Anatomical Region Laterality Modality Body N/A Ultrasound 08/23/2024 10:1 0 AM GLASS SETTER Impressions 08/23/2024 12:04 PM GLASS SETTER SIUP @ 20w 0d with positive cardiac [...] indicated she had discussed this with Dr. Barclay but they were waiting on US Before obtaining further labs. I reviewed the findings are minimal in terms of area of echogenicity but out of caution I will contact Dr. Barclay and obtain the remaining labs for infection [...] but outof caution I will contact Dr. Barclay and obtain the remaining labs forinfection and genetic (outlined below) and recommend followup in 4 weeksto re-evaluate. Michelle Barclay MD [facility] [place] PROCEDURES F inal Result * POCT OB urine short dip (glucose, protein, ketones) (08/10/2024 2:32 PM GLASS SETTER) Pathologist [facility] Glucose, ur, POC Negative Negative MG/DL Protein, ur, POC Negative Negative Ketones, ur, POC Negative Negative Lot Number [id number] Urine 08/10/2024 2:32 PM GLASS SETTER Michelle Barclay MD POINT OF CARE TEST ORD ERABLES Final Result * US OB 14 Weeks Or Over (08/10/2024 1:39 PM GLASS SETTER) Anatomical Region Laterality Modality Abdomen N/A Ultrasound Michelle Barclay MD [facility] [place] US PROCEDURES E dited Result - Final * Differential, auto (06/29/2024 8:27 PM GLASS SETTER) Pathologist [facility] Neutrophil abs 4.6 1.5 - 6.5 K/cumm Imm gran abs 0.0 0.0 - 0.1 K/cumm [facility] Lymphocyte abs 1.7 0.8 - 3.3 K/cumm [facility] Monocyte abs 0.6 0.2 - 0.8 K/cumm [facility] Eosinophil abs 0.1 0.0 - 0.5 K/cumm [facility] Basophil abs 0.0 0.0 - 0.1 K/cumm [facility] Neutrophil pct 66.1 % [facility] Comment: Interpretive Data Percent cell count reference ranges are not reported, since discordance with absolute values may lead to misinterpretation of CBC data. Current Interpretive Data was last revised on 2017. Imm gran pct 0.3 % [facility] Comment: Interpretive Data Percent cell count reference ranges are not reported, since discordance with absolute values may lead to misinterpretation of CBC data. Current Interpretive Data was last revised on 2017. Lymphocyte pct 23.6 % [facility] Comment: Interpretive Data Percent cell count reference ranges are not reported, since discordance with absolute values may lead to misinterpretation of CBC data. Current Interpretive Data was last revised on 2017. Monocyte pct 8.0 % [facility] Comment: Interpretive Data Percent cell count reference ranges are not reported, since discordance with absolute values may lead to misinterpretation of CBC data. Current Interpretive Data was last revised on 2017. Eosinophil pct 1.6 % [facility] Comment: Interpretive Data Percent cell count reference ranges are not reported, since discordance with absolute values may lead to misinterpretation of CBC data. Current Interpretive Data was last revised on 2017. Basophil pct 0.4 % [facility] Comment: Interpretive Data Percent cell count reference ranges are not reported, since discordance with absolute values may lead to misinterpretation of CBC data. Current Interpretive Data was last revised on 2017. Blood 06/29/2024 8:27 PM GLASS SETTER 06/29/2024 8:35 PM GLASS SETTER us Ophelia Harper MD LAB BLOOD ORDERABLES Fin al Result [facility] [address] Department [place] [address] * CBC with auto differential (06/29/2024 8:27 PM GLASS SETTER) WBC 7.0 3.8 - 9.9 K/cumm Hgb 12.9 11.9 - 15.5 g/dL [facility] Hct 36.9 35.6 - 45.5 % [facility] Plt 243 150 - 400 K/cumm [facility] MPV 11.0 9.1 - 12.3 fL [facility] RBC 4.20 3.90 - 5.20 M/cumm [facility] MCV 87.9 81.3 - 96.4 fL [facility] MCH 30.7 27.1 - 33.3 pg [facility] MCHC 35.0 32.3 - 35.7 g/dL [facility] RDW CV 12.1 11.1 - 14.9 % [facility] RDW SD 38.7 35.7 - 48.1 fL [facility] NRBC abs 0.00 0.00 - 0.01 K/cumm [facility] Blood (Blood, Venous) 06/29/2024 8:27 PM GLASS SETTER 06/29/2024 8:35 PM GLASS SETTER Ophelia Harper MD LAB BLOOD ORDERABLES Fin al Result Performing Organization Address City/[facility]/ZIP Co de Phone Number [facility] [address] Department [place] [address] * ABO/Rh (06/29/2024 8:27 PM GLASS SETTER) [facility] ABO Rh B Negative Blood 06/29/2024 8:2 7 PM GLASS SETTER 06/29/2024 8:43 PM GLASS SETTER Ophelia Harper MD LAB BLOOD BANK TEST ORDE RABLES Final Result [facility] [address] Department [place] [address] * (ABNORMAL) hCG, blood, quantitative (06/29/2024 8:27 PM GLASS SETTER) [facility] hCG, quant 74,495.0( H) 0.0 - 5.0 IUnits/L Comment: Interpretive Data Male: < 5 IU/L Non- premenopausal Female: <5 IU/L [employer] hCG Beta Quant assay procedure was used. Results from different manufacturers or methods may not be comparable. Serial testing should be performed using the same method. Interpretive Data was last revised on 2023 Blood 06/29/2024 8:27 PM GLASS SETTER 06/29/2024 8:35 PM GLASS SETTER Ophelia Harper MD LAB BLOOD ORDERABLES Fin al Result [facility] [address] Department [place] [address] * POCT OB urine short dip (glucose, protein, ketones) (06/14/2024 3:40 PM GLASS SETTER) Glucose, ur, POC Negative Negative MG/DL Protein, ur, POC Negative Negative Ketones, ur, POC Negative Negative Lot Number [id number] Comment:Lisa small Urine 06/14/2024 3:40 PM GLASS SETTER Michelle Barclay MD POINT OF CARE TEST ORD ERABLES Final Result * US Ob Under 14 Weeks (06/14/2024 2:19 PM GLASS SETTER) Anatomical Region Laterality Modality Abdomen N/A Ultrasound Michelle Barclay MD IMG OB US PROCEDURES E dited Result - Final * Panorama Test (06/14/2024 2:01 PM GLASS SETTER) REPORT SUMMARY LOW RISK 06/22/2024 2:45 PM GLASS SETTER [facility] Comment:LOW RISK REPORT NOTE See Notes 06/22/2024 2:45 PM GLASS SETTER [facility] GENDER OF FETUS Female 2:45 PM GLASS SETTER [facility] FRACTION 14.2% 06/22/2024 2:45 PM GLASS SETTER [facility] TRISOMY 21 RESULT TEXT Low Risk 06/22/2024 2:45 PM GLASS SETTER [facility] TRISOMY 21 AGE-BASED RISK TEXT 1983 (0.1%) 06/22/2024 2:45 PM GLASS SETTER [facility] TRISOMY 21 RISK SCORE TEXT <1/10,000 (<0.01%) 06/22/2024 2:45 PM GLASS SETTER [facility] TRISOMY 18 RESULT TEXT Low Risk 06/22/2024 2:45 PM GLASS SETTER [facility] TRISOMY 18 AGE-BASED RISK TEXT 11,993 (0.05%) 06/22/2024 2:45 PM GLASS SETTER [facility] TRISOMY 18 RISK SCORE TEXT <1/10,000 (<0.01%) 06/22/2024 2:45 PM GLASS SETTER [facility] TRISOMY 13 RESULT TEXT Low Risk 06/22/2024 2:45 PM GLASS SETTER [facility] TRISOMY 13 AGE-BASED RISK TEXT 16,347 (0.02%) 06/22/2024 2:45 PM GLASS SETTER [facility] TRISOMY 13 RISK SCORE TEXT <1/10,000 (<0.01%) 06/22/2024 2:45 PM GLASS SETTER [facility] MONOSOMY X RESULT TEXT Low Risk 06/22/2024 2:45 PM GLASS SETTER [facility] MONOSOMY X AGE-BASED RISK TEXT 1255 (0.39%) 06/22/2024 2:45 PM GLASS SETTER [facility] MONOSOMY X RISK SCORE TEXT <1/10,000 (<0.01%) 06/22/2024 2:45 PM GLASS SETTER [facility] TRIPLOIDY RESULT TEXT Low Risk 04/2024 2:45 PM GLASS SETTER [facility] 22Q11.2 DELETION SYNDROME RESULT TEXT Low Risk 06/22/2024 2:45 PM GLASS SETTER [facility] 22Q11.2 DELETION SYNDROME POPULATION-BASED RISK TEXT 000 06/22/2024 2:45 PM GLASS SETTER [facility] 22Q11.2 DELETION SYNDROME RISK SCORE TEXT 06/22/2024 2:45 PM GLASS SETTER [facility] FOOTNOTES See Notes 06/22/2024 2:45 PM GLASS SETTER [facility] Comment: Testing Methodology DNA isolated from maternal blood, which contains placental DNA, is amplified at specific loci using a targeted PCR assay and is sequenced using a high- throughput sequencer. fraction is determined using a proprietary algorithm incorporating data from single nucleotide polymorphism-based (SNP-based) next-generation sequencing [Kaleb E et al. Obstet Gynecol. 2014 Feb;124(2 Pt 1):210-8]. If there is sufficient fraction, sequencing data is analyzed using a proprietary SNP- based algorithm to determine the copy number for chromosomes 13, 18, 21, X and Y. If ordered, specific microdeletions will be evaluated using similar methodology [Sean MCFARLAND et al. Am J Obstet Gynecol. 2015 Sep;212(3):332.e1-9]. If the fraction is insufficient, signal enhancement and/or an additional algorithm to determine whether there is an increased risk for triploidy, trisomy 18, and trisomy 13 may be utilized [Cm et al. Ultrasound Obstet Gynecol 2019; 53:73-79]. However, some samples will not produce a result due to failure to meet the necessary quality thresholds. This test has been validated on women with a seo, twin or egg donor of at least nine weeks gestation. A result will not be available for higher order multiples and multiple gestation pregnancies with an egg donor or surrogate, or bone marrow transplant recipients. Complete test panel is not available for twin gestations and pregnancies achieved with an egg donor or surrogate. For twin pregnancies with a fraction value below the threshold for analysis, a sum of the fractions for both twins will be reported. As this assay is a screening test and not diagnostic, false positives and false negatives can occur. High risk test results need diagnostic confirmation by alternative testing methods. Low risk results do not fully exclude the diagnosis of any of the syndromes nor do they exclude the possibility of other chromosomal abnormalities or defects, which are not a part of this test. Potential sources of inaccurate results include, but are not limited to, mosaicism, low fraction, limitations of current diagnostic techniques, or misidentification of samples. This test will not identify all deletions associated with each microdeletion syndrome. This test has been validated for deletions > = 0.5 Mb within the 22q11.2 A-D region. This test has been validated on full region deletions only for 1p36 deletion syndrome, Cri-du-chat syndrome, Prader Willi syndrome and Angelman syndrome and may be unable to detect smaller deletions. Microdeletion risk score may be dependent upon fraction, as deletions on the maternally inherited copy are difficult to identify at lower fractions. Test results should always be interpreted by a clinician in the context of clinical and familial data with the availability of genetic counseling when appropriate. Disclaimers The extraction, library preparation, and sequencing of this test were performed by [facility] [address] [facility] [facility] [address], [place] [address] (CLIA ID [id number]). The data analysis and reporting of this test were performed by [facility] [address], [place] [address] (CLIA ID [id number]). The performance characteristics of this test were developed by [employer] [facility].(CLIA ID [id number]). This test has not been cleared or approved by the U.S. Food and Drug Administration (FDA). These laboratories are regulated under CLIA as qualified to perform high-complexity testing. 2020 [employer]. All Rights Reserved. Please refer to the attached PDF report Reviewed By: Delphine Araujo M.D., Ph.D., [facility], Senior Newscast Director [facility] Online Communications Specialist: Elver Strong, Ph.D., [facility] IF THE ORDERING PROVIDER HAS QUESTIONS OR WISHES TO DISCUSS THE RESULTS, PLEASE CONTACT US AT [phone] #[phone]. Ask for the NIPT genetic counselor hospital monitor. Blood specimen (specimen) (Blood, Venous) 06/14/2024 2:01 PM GLASS SETTER 06/22/2024 2:45 PM GLASS SETTER us Michelle Barclay MD LAB GENETIC TESTING Fi nal Result [facility] [address] [place] [address], [facility] * Hepatitis C antibody Blood (05/19/2024 10:09 AM GLASS SETTER) Hep C Ab Nonreactive Nonreactive Comment: Interpretive Data Nonreactive: Antibodies to HCV not detected. Does NOT exclude the possibility of recent exposure to HCV. Equivocal: Equivocal for HCV antibodies. Supplemental molecular testing will be automatically performed to determine infection status in accordance with current CDC screening recommendations. Reactive: Positive for HCV antibodies. This may represent current or past HCV infection. Supplemental molecular testing will be automatically performed to determine current infection status in accordance with current CDC screening recommendations. Interpretive data was last revised on 2019. Blood 05/19/2024 10:0 9 AM GLASS SETTER 05/19/2024 1:53 PM [facility]A L ORDERABLES Final Result Performing Organization Address [facility] Co de Phone Number [facility] [address] Department [place] [address] * N. gonorrhoeae/C. trachomatis Amplification Urine (05/19/2024 10:03 AM GLASS SETTER) C. trachomatis Not Detected Not Detected N. gonorrhoeae Not Detected Not Detected [facility] Comment: Interpretive Data This assay detects Chlamydia trachomatis and Neisseria gonorrhoeae by nucleic acid amplification testing (NAAT). This assay has been cleared by the [place] Food and Drug administration. The performance characteristics of this test have been verified by the [facility] [place] [facility]. The performance characteristics of this test have not been evaluated in individuals less than 14 years of age. Current Interpretive Data last revised 2023. Urine 05/19/2024 10:0 3 AM GLASS SETTER 05/19/2024 2:19 PM GLASS SETTER [facility] MICROBIOLOGY - GENERA L ORDERABLES Final Result Performing Organization Address [facility] Co de Phone Number [facility] [address] Department [place] [address] * Pap with reflex to High Risk HPV (02/05/2021 10:36 AM CDT) Swab (Pap test) 02/05/2021 1 0:36 AM CDT 02/05/2021 10:25 PM CDT Narrative PATHOLOGY [facility] - 02/08/2021 2:45 PM CDT EPIC results best viewed via link to PDF [place] [id number] [facility], [place], [place] [address] Tele: Mary Bravo MD - Wildlife Manager CYTOLOGY REPORT Patient Name: CHAZ PIERRE Address: [address] [place] [address] Gender: F : 2000 (Age: 21) Service: Location: N : [id number] [facility] #: [id number] Patient Type: [facility] SPECIMEN Taken: 02/05/2021 Reported: 02/08/2021 Physician(s): Michelle Barclay M.D. FINAL DIAGNOSIS: Specimen Type: - ThinPrep Pap w/ reflex HPV Statement of Specimen Adequacy: Source: Cervical/Endocervical - Satisfactory for interpretation - Endocervical /Transformation Zone component present - Case screened using computer assisted imaging technology General Categorization: - Negative for intraepithelial lesion or malignancy Interpretation: - Acute Inflammation jxm/02/08/2021 14:45 EVA Roblero (ASCP) Report Reviewed and Electronically Signed By EVA Roblero (ASCP) Clerical Data Follow A; [id number] CLINICAL DIAGNOSIS AND HISTORY Last Menstrual Period: 01/27/2021 REPORT IMAGES AND/OR SCANNED DOCUMENTS ONLY VIEWABLE IN PDF FORMAT The Pap test is a screening test used to aid in the detection of cervical cancer and its precursors. It should not be the sole means by which malignant and premalignant lesions are diagnosed. Both false negative and false positive results may occur. It also has poor sensitivity for the detection of endometrial lesions and should not be used to evaluate suspected endometrial abnormalities. For these reasons it is most important to obtain Pap tests at regular intervals, as recommended by your physician or nurse practitioner. us Michelle Barclay MD LAB CYTOLOGY ORDERABLE S Final Result PATHOLOGY [facility] [place] [address] from Last 3 Months or Most Recently Relevant to Health Maintenance Insurance [facility] CHO[employer] PLUS [place] [id number] [place] [id number] [facility] CHO[employer] PLUS Care Teams [place] Underwriter Relationship Specialty Start Date End Date Abram French MD PCP - General Family Medicine 08/11/19
--- OUTSIDE RECORDS SUMMARY | 2024-08-23 12:45 | XMS_ITS | Referral Summary ---
Author Organization [facility]sp[facility] Address [address] [place] [address] Care Team Providers Care Recovery Agent Name Role Phone Abram French MD Primary Care Provider [phone] Encounters Date Type Department Care Team Description 08/23/2024 9:39 AM SEMICONDUCTOR ASSEMBLER Hospital Encounter [facility] [address] [place] [address] 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 08/10/2024 3:00 PM SEMICONDUCTOR ASSEMBLER Office Visit [facility] [address] [place] [address] Michelle Barclay MD Encounter for supervision of other normal , second trimester (Primary Dx); 18 weeks gestation of ; 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 08/10/2024 2:00 PM SEMICONDUCTOR ASSEMBLER Clinical Support [facility] [address] [place] [address] Encounter for anatomic survey (Primary Dx) 07/13/2024 10:45 AM SEMICONDUCTOR ASSEMBLER Office Visit [facility] [address] [place] [address] Michelle Barclay MD Encounter for supervision of other normal , second trimester (Primary Dx); 14 weeks gestation of 06/29/2024 11:43 PM SEMICONDUCTOR ASSEMBLER - 06/30/2024 1:09 AM SEMICONDUCTOR ASSEMBLER Hospital Encounter [facility] [address] [place] [address] Michelle Barclay MD Postcoital bleeding (Primary Dx); 12 weeks gestation of Discharge Disposition: Discharge to home or self care 06/29/2024 Telephone [facility] [address] [place] [address] Afsaneh Garcia, RN Vaginal Bleeding - 06/23/2024 Telephone [facility] [address] [place] [address] Afsaneh Garcia RN Test Results 06/14/2024 3:00 PM SEMICONDUCTOR ASSEMBLER Office Visit [facility] [address] [place] [address] Michelle Barclay MD Encounter for supervision of normal first in first trimester (Primary Dx); 9 weeks gestation of ; Encounter for procreative genetic counseling and testing 06/14/2024 2:30 PM SEMICONDUCTOR ASSEMBLER Clinical Support [facility] [address] [place] [address] with inconclusive viability, single or unspecified fetus (Primary Dx) from Last 3 Months Allergies No known active allergies Medications vit,pldq88-zcdm- folic (PRENATABS RX) tablet tabletIndication s:Procreative counseling [...] on last me nstrual period of 04/04/2024 Immunizations Name Administration Dates Next Due DTaP, [...] Unspecified 02/11/2005, 1,2000,04/01 Tdap 01/08/2011 Varicella 01/08/2011,05/04/2001 Social History Tobacco Use Types Packs/Day Years [...] on file Legal Sex Female 1:30 AM SEMICONDUCTOR ASSEMBLER Gender Identity Not on file Sexual Orientation Straight 08/21/2020 10 :21 AM SEMICONDUCTOR ASSEMBLER Last Filed Vital Signs Vital Sign Reading Time Taken Comments Blood Pressure 122/64 08/10/2024 1:58 PM SEMICONDUCTOR ASSEMBLER Pulse 87 06/29/2024 11:49 PM SEMICONDUCTOR ASSEMBLER Temperature 36.9 C (98.4 F) 06/29/2024 11:49 PM SEMICONDUCTOR ASSEMBLER Respiratory Rate 18 06/29/2024 8:18 PM SEMICONDUCTOR ASSEMBLER Oxygen Saturation 100% 06/29/2024 8:18 PM SEMICONDUCTOR ASSEMBLER Inhaled Oxygen Concentration - - Weight 60.3 kg (133 lb) 08/10/2024 1:58 PM SEMICONDUCTOR ASSEMBLER Height 162.6 cm (5' 4 ) 08/10/2024 1:58 PM SEMICONDUCTOR ASSEMBLER Body Mass Index 22.83 08/10/2024 1:58 PM SEMICONDUCTOR ASSEMBLER Plan of Treatment Upcoming Encounters Date Type Department Care Team (Late st Contact Info) Description 01/12/2025 Hospital Encounter [facility] [address] [place] [address] Michelle Barclay MD [address] [facility] [address] [place] [address] Procedures Procedure Name Priority Date/Time Associated Diagnosis Comments US OB DETAIL ANATOMY SINGLE OR FIRST GESTATION Schedule Routine, Read Routine (OP Routine) 08/23/2024 11:29 AM SEMICONDUCTOR ASSEMBLER 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 POCT OB URINE SHORT DIP (GLUCOSE, PROTEIN, KETONES) Routine 08/10/2024 2:32 PM SEMICONDUCTOR ASSEMBLER Encounter for supervision of other normal , second trimester 18 weeks gestation of US OB 14 WEEKS OR OVER Schedule Routine, Read Routine (OP Routine) 08/10/2024 1:39 PM SEMICONDUCTOR ASSEMBLER Encounter for anatomic survey DIFFERENTIAL AUTO STAT 06/29/2024 8:2 7 PM SEMICONDUCTOR ASSEMBLER ABO/RH STAT 06/29/2024 8:27 PM SEMICONDUCTOR ASSEMBLER HCG, BLOOD, QUANTITATIVE STAT 06/29/2024 8:27 PM SEMICONDUCTOR ASSEMBLER CBC WITH AUTO DIFFERENTIAL STAT 06/29/2024 8:27 PM SEMICONDUCTOR ASSEMBLER POCT OB URINE SHORT DIP (GLUCOSE, PROTEIN, KETONES) Routine 06/14/2024 3:40 PM SEMICONDUCTOR ASSEMBLER Encounter for supervision of normal first in first trimester 9 weeks gestation of US OB UNDER 14 WEEKS Schedule Routine, Read Routine (OP Routine) 06/14/2024 2:19 PM SEMICONDUCTOR ASSEMBLER with inconclusive viability, single or unspecified fetus PANORAMA TEST Routine 06/14/2024 2:01 PM SEMICONDUCTOR ASSEMBLER Encounter for supervision of normal first in first trimester 9 weeks gestation of Encounter for procreative genetic counseling and testing HEPATITIS C ANTIBODY Routine 05/19/2024 10:09 AM SEMICONDUCTOR ASSEMBLER Screening for venereal disease N. GONORRHOEAE/C. TRACHOMATIS AMPLIFICATION Routine 05/19/2024 10:03 AM SEMICONDUCTOR ASSEMBLER Screening for venereal disease PAP WITH REFLEX TO HIGH RISK HPV Routine 02/05/2021 10:36 AM CDT Well female exam with routine gynecological exam from Last 3 Months or Most Recently Relevant to Health Maintenance Results * US OB detail anatomy single or first gestation (08/23/2024 11:29 AM SEMICONDUCTOR ASSEMBLER) Fetus# Fetus1 VIEWPOINT Estimated Weight 300 g&grams VIEWPOINT Placenta Details anterior VIEWPOINT Presentation Breech VIEWPOINT Anatomical Region Laterality Modality Body N/A Ultrasound 08/23/2024 10:1 0 AM SEMICONDUCTOR ASSEMBLER Impressions 08/23/2024 12:04 PM SEMICONDUCTOR ASSEMBLER SIUP @ 20w 0d with positive cardiac [...] in 4 weeksto re-evaluate. Michelle Barclay MD [facility] OB US PROCEDURES F inal Result * POCT OB urine short dip (glucose, protein, ketones) (08/10/2024 2:32 PM SEMICONDUCTOR ASSEMBLER) Glucose, ur, POC Negative Negative MG/DL Protein, ur, POC Negative Negative Ketones, ur, POC Negative Negative Lot Number [id number] Urine 08/10/2024 2:32 PM SEMICONDUCTOR ASSEMBLER Michelle Barclay MD POINT OF CARE TEST ORD ERABLES Final Result * US OB 14 Weeks Or Over (08/10/2024 1:39 PM SEMICONDUCTOR ASSEMBLER) Anatomical Region Laterality Modality Abdomen N/A Ultrasound Michelle Barclay MD IM OB US PROCEDURES E dited Result - Final * Differential, auto (06/29/2024 8:27 PM SEMICONDUCTOR ASSEMBLER) Neutrophil abs 4.6 1.5 - 6.5 K/cumm Imm gran abs 0.0 0.0 - 0.1 K/cumm [facility] Lymphocyte abs 1.7 0.8 - 3.3 K/cumm [facility] Monocyte abs 0.6 0.2 - 0.8 K/cumm [facility] Eosinophil abs 0.1 0.0 - 0.5 K/cumm [facility] Basophil abs 0.0 0.0 - 0.1 K/cumm [facility] Neutrophil pct 66.1 % [facility] Comment: Interpretive Data Percent cell count reference ranges are not reported, since discordance with absolute values may lead to misinterpretation of CBC data. Current Interpretive Data was last revised on 2017. Imm gran pct 0.3 % [facility] Comment: Interpretive Data Percent cell count reference ranges are not reported, since discordance with absolute values may lead to misinterpretation of CBC data. Current Interpretive Data was last revised on 2017. Lymphocyte pct 23.6 % [facility] Comment: Interpretive Data Percent cell count reference ranges are not reported, since discordance with absolute values may lead to misinterpretation of CBC data. Current Interpretive Data was last revised on 2017. Monocyte pct 8.0 % [facility] Comment: Interpretive Data Percent cell count reference ranges are not reported, since discordance with absolute values may lead to misinterpretation of CBC data. Current Interpretive Data was last revised on 2017. Eosinophil pct 1.6 % [facility] Comment: Interpretive Data Percent cell count reference ranges are not reported, since discordance with absolute values may lead to misinterpretation of CBC data. Current Interpretive Data was last revised on 2017. Basophil pct 0.4 % [facility] Comment: Interpretive Data Percent cell count reference ranges are not reported, since discordance with absolute values may lead to misinterpretation of CBC data. Current Interpretive Data was last revised on 2017. Blood 06/29/2024 8:27 PM SEMICONDUCTOR ASSEMBLER 06/29/2024 8:35 PM SEMICONDUCTOR ASSEMBLER us Ophelia Harper MD LAB BLOOD ORDERABLES Fin al Result Performing Organization Address [facility] de Phone Number [facility] [address] Department [place] [address] * CBC with auto differential (06/29/2024 8:27 PM SEMICONDUCTOR ASSEMBLER) Pathologist [facility] WBC 7.0 3.8 - 9.9 K/cumm Hgb 12.9 11.9 - 15.5 g/dL [facility] Hct 36.9 35.6 - 45.5 % [facility] Plt 243 150 - 400 K/cumm [facility] MPV 11.0 9.1 - 12.3 fL [facility] RBC 4.20 3.90 - 5.20 M/cumm [facility] MCV 87.9 81.3 - 96.4 fL [facility] MCH 30.7 27.1 - 33.3 pg [facility] MCHC 35.0 32.3 - 35.7 g/dL [facility] RDW CV 12.1 11.1 - 14.9 % [facility] RDW SD 38.7 35.7 - 48.1 fL [facility] NRBC abs 0.00 0.00 - 0.01 K/cumm [facility] Blood (Blood, Venous) 06/29/2024 8:27 PM SEMICONDUCTOR ASSEMBLER 06/29/2024 8:35 PM SEMICONDUCTOR ASSEMBLER us Ophelia Harper MD LAB BLOOD ORDERABLES Fin al Result Performing Organization Address [facility] Co de Phone Number [facility] [address] [place] [address] * ABO/Rh (06/29/2024 8:27 PM SEMICONDUCTOR ASSEMBLER) [facility] ABO Rh B Negative Blood 06/29/2024 8:27 PM SEMICONDUCTOR ASSEMBLER 06/29/2024 8:43 PM SEMICONDUCTOR ASSEMBLER Ophelia Harper MD LAB BLOOD BANK TEST ORDE RABLES Final Result Performing Organization Address [facility] Co de Phone Number [facility] [address] Department [place] [address] * (ABNORMAL) hCG, blood, quantitative (06/29/2024 8:27 PM SEMICONDUCTOR ASSEMBLER) hCG, quant 74,495.0( H) 0.0 - 5.0 [facility]/L Comment: Interpretive Data Male: < 5 IU/L Non- premenopausal Female: <5 IU/L [employer] hCG Beta Quant assay procedure was used. Results from different manufacturers or methods may not be comparable. Serial testing should be performed using the same method. Interpretive Data was last revised on 2023 Blood 06/29/2024 8:27 PM SEMICONDUCTOR ASSEMBLER 06/29/2024 8:35 PM SEMICONDUCTOR ASSEMBLER Ophelia Harper MD LAB BLOOD ORDERABLES Fin al Result [facility] [address] Department [place] [address] * POCT OB urine short dip (glucose, protein, ketones) (06/14/2024 3:40 PM SEMICONDUCTOR ASSEMBLER) [facility] Glucose, ur, POC Negative Negative MG/DL Protein, ur, POC Negative Negative Ketones, ur, POC Negative Negative Lot Number [id number] Comment:Lisa small Urine 06/14/2024 3:40 PM SEMICONDUCTOR ASSEMBLER Michelle Barclay MD POINT OF CARE TEST ORD ERABLES Final Result * US Ob Under 14 Weeks (06/14/2024 2:19 PM SEMICONDUCTOR ASSEMBLER) Anatomical Region Laterality Modality Abdomen N/A Ultrasound Michelle Barclay MD IMG OB US PROCEDURES E dited Result - Final * Panorama Test (06/14/2024 2:01 PM SEMICONDUCTOR ASSEMBLER) Pathologist [facility] REPORT SUMMARY LOW RISK 06/22/2024 2:45 PM SEMICONDUCTOR ASSEMBLER [facility] Comment:LOW RISK REPORT NOTE See Notes 06/22/2024 2:45 PM SEMICONDUCTOR ASSEMBLER [facility] GENDER OF FETUS Female 2:45 PM SEMICONDUCTOR ASSEMBLER [facility] FRACTION 14.2% 06/22/2024 2:45 PM SEMICONDUCTOR ASSEMBLER [facility] TRISOMY 21 RESULT TEXT Low Risk 06/22/2024 2:45 PM SEMICONDUCTOR ASSEMBLER [facility] TRISOMY 21 AGE-BASED RISK TEXT 1983 (0.1%) 06/22/2024 2:45 PM SEMICONDUCTOR ASSEMBLER [facility] TRISOMY 21 RISK SCORE TEXT <1/10,000 (<0.01%) 06/22/2024 2:45 PM SEMICONDUCTOR ASSEMBLER [facility] TRISOMY 18 RESULT TEXT Low Risk 06/22/2024 2:45 PM SEMICONDUCTOR ASSEMBLER [facility] TRISOMY 18 AGE-BASED RISK TEXT 1,993 (0.05%) 06/22/2024 2:45 PM SEMICONDUCTOR ASSEMBLER [facility] TRISOMY 18 RISK SCORE TEXT <1/10,000 (<0.01%) 06/22/2024 2:45 PM SEMICONDUCTOR ASSEMBLER [facility] TRISOMY 13 RESULT TEXT Low Risk 06/22/2024 2:45 PM SEMICONDUCTOR ASSEMBLER [facility] TRISOMY 13 AGE-BASED RISK TEXT 1,347 (0.02%) 06/22/2024 2:45 PM SEMICONDUCTOR ASSEMBLER [facility] TRISOMY 13 RISK SCORE TEXT <1/10,000 (<0.01%) 06/22/2024 2:45 PM SEMICONDUCTOR ASSEMBLER [facility] MONOSOMY X RESULT TEXT Low Risk 06/22/2024 2:45 PM SEMICONDUCTOR ASSEMBLER [facility] MONOSOMY X AGE-BASED RISK TEXT 1/255 (0.39%) 06/22/2024 2:45 PM SEMICONDUCTOR ASSEMBLER [facility] MONOSOMY X RISK SCORE TEXT <1/10,000 (<0.01%) 06/22/2024 2:45 PM SEMICONDUCTOR ASSEMBLER [facility] TRIPLOIDY RESULT TEXT Low Risk 04/2024 2:45 PM SEMICONDUCTOR ASSEMBLER [facility] 22Q11.2 DELETION SYNDROME RESULT TEXT Low Risk 06/22/2024 2:45 PM SEMICONDUCTOR ASSEMBLER [facility] 22Q11.2 DELETION SYNDROME POPULATION-BASED RISK TEXT 06/22/2024 2:45 PM SEMICONDUCTOR ASSEMBLER [facility] 22Q11.2 DELETION SYNDROME RISK SCORE TEXT 06/22/2024 2:45 PM SEMICONDUCTOR ASSEMBLER [facility] FOOTNOTES See Notes 06/22/2024 2:45 PM SEMICONDUCTOR ASSEMBLER [facility] Comment: Testing Methodology DNA isolated [...] sequencing of this test were performed by [facility] [id number] [place] [address] [address], [place] [address] (CLIA ID [id number]). The data analysis and reporting of this test were performed by [facility] [address] [place] [address], [place] [address] (CLIA ID [id number]). The performance characteristics of this test were developed by [facility].(CLIA ID [id number]). This test has not been cleared or approved by the U.S. Food and Drug Administration (FDA). These laboratories are regulated under CLIA as qualified to perform high-complexity testing. 2020 [facility]. All Rights Reserved. Please refer to the attached PDF report Reviewed By: Delphine Araujo M.D., Ph.D., [facility], Senior Launch Manager [employer] Sports Bookmaker: Elver Strong, Ph.D., [facility] IF THE ORDERING PROVIDER HAS QUESTIONS OR WISHES TO DISCUSS THE RESULTS, PLEASE CONTACT US AT [phone] #[phone]. Ask for the NIPT genetic counselor production control supervisor. Blood specimen (specimen) (Blood, Venous) 06/14/2024 2:01 PM SEMICONDUCTOR ASSEMBLER 06/22/2024 2:45 PM SEMICONDUCTOR ASSEMBLER us Michelle Barclay MD LAB GENETIC TESTING Fi nal Result [facility] [address] [place] [address], [facility] * Hepatitis C antibody Blood (05/19/2024 10:09 AM SEMICONDUCTOR ASSEMBLER) Hep C Ab Nonreactive Nonreactive Comment: Interpretive [...] on 2019. Blood 05/19/2024 10:0 9 AM SEMICONDUCTOR ASSEMBLER 05/19/2024 1:53 PM SEMICONDUCTOR ASSEMBLER [facility] MICROBIOLOGY - GENERA L ORDERABLES Final Result Performing Organization Address [facility] de Phone Number [facility] [address] [place] [address] * N. gonorrhoeae/C. trachomatis Amplification Urine (05/19/2024 10:03 AM SEMICONDUCTOR ASSEMBLER) Pathologist [facility] C. trachomatis Not Detected Not Detected N. gonorrhoeae Not Detected Not Detected [facility] Comment: Interpretive Data This assay detects Chlamydia trachomatis and Neisseria gonorrhoeae by nucleic acid amplification testing (NAAT). This assay has been cleared by the [place] Food and Drug administration. The performance characteristics of this test have been verified by the [facility]. The performance characteristics of this test have not been evaluated in individuals less than 14 years of age. Current Interpretive Data last revised 2023. Urine 05/19/2024 10:0 3 AM SEMICONDUCTOR ASSEMBLER 05/19/2024 2:19 PM SEMICONDUCTOR ASSEMBLER [facility] MICROBIOLOGY - GENERA L ORDERABLES Final Result Performing Organization Address [facility] Co de Phone Number [facility] [address] [place] [address] * Pap with reflex to High Risk HPV (02/05/2021 10:36 AM CDT) Swab (Pap test) 02/05/2021 1 0:36 AM CDT 02/05/2021 10:25 PM CDT Narrative PATHOLOGY [facility] - 02/08/2021 2:45 PM CDT EPIC results best viewed via link to PDF [address] [address] Tele: Mary Bravo MD - Materials Recycler CYTOLOGY REPORT Patient Name: CHAZ PIERRE Address: [address] [place] [address] Gender: F : 2000 (Age: 21) Service: Location: Hospital #: [id number] Patient Type: [facility] SPECIMEN Taken: 02/05/2021 Reported: 02/08/2021 Physician(s): Michelle [...] LAB CYTOLOGY ORDERABLE S Final Result [facility]OLOGY [facility] Receiving [address] [place] [address] from Last 3 Months or Most Recently Relevant to Health Maintenance Insurance [place] [id number] [place] [address] [facility] [employer] Care Teams Recovery Agent Relationship Specialty Start Date End Date Abram French MD PCP - General Family Medicine 08/11/19
[2024-08-23 12:52] VITALS: BP 105/66; PULSE 100; RESP 18; TEMP 37.8; O2SAT 100
--- NOTE | 2024-08-23 13:30 | ED_ITS ---
HPI - URI/Sore Throat General Chief Complaint: Upper Respiratory Infection Stated Complaint: cough and fever/vomiting Time Seen by Provider: 08/23/24 13:31 Source: patient Mode of arrival: ambulatory Limitations: no limitations History of Present Illness HPI Narrative: 24-year-old female presents with complaint of cough, congestion, fatigue, body aches with fever starting yesterday. Had influenza a exposure from her brother and nephew. Patient denies chest pain, shortness of breath. Patient is approximately 20 weeks . All systems reviewed and negative except as noted above. Related Data Home Medications ?Medication ?Instructions ?Recorded ?Confirmed ?Last Taken ?Type vit no.95-ferrous 1 tablet PO DAILY 07/22/24 07/22/24 Unknown History fumarate 28 mg-folic acid 800 mcg tablet () Allergies Allergy/AdvReac Type Severity Reaction Status Date / Time No Known Allergies Allergy Verified 08/23/24 13:29 Review of Systems Review of Systems: CONSTITUTIONAL: reports fever, chills, or sweats. EYES: Denies visual changes, redness, or discharge. ENT: Reports rhinorrhea, congestion. Denies sore throat. Denies otalgia. CARDIOVASCULAR: Denies chest pain, palpitations, or edema. RESPIRATORY: reports cough. Denies dyspnea. GASTROINTESTINAL: Denies abdominal pain, nausea, vomiting, or diarrhea. GENITOURINARY: Denies dysuria or hematuria. SKIN: Denies rash or itching. MUSCULOSKELETAL: Denies back pain, joint pain, or myalgia. NEUROLOGIC: Denies headache, numbness, or weakness. PSYCHIATRIC: Denies anxiety or depression. All other systems reviewed are negative, except as documented in HPI. PMFSH Comments At time of signature, agree with nursing past medical, surgical, social and family history. There is no relevant family history pertinent to the presenting complaint. Exam Narrative: GENERAL: This is a well-nourished, well-developed patient, in no apparent distress. HEAD: normocephalic, atraumatic. EYES: PERRL. Sclera clear/white. Vision is grossly intact. EARS: External ears normal, auditory canals clear and without drainage, TMs normal without perforation. Hearing grossly intact. NOSE: External nose normal with mild congestion, clear nasal drainage THROAT: Mucous membranes moist, erythema clear postnasal drainage NECK: Neck supple, non-tender without lymphadenopathy, masses or thyromegaly. CARDIOVASCULAR: Regular rate and rhythm without murmurs, gallops, or rubs. RESPIRATORY: Clear to auscultation. Breath sounds equal bilaterally. No wheezes, rales, or rhonchi. SKIN: warm, Dry, intact with no suspicious lesions or rash, good texture and turgor. NEURO: awake, alert, and oriented to person, place and time. There were no obvious focal neurologic abnormalities. EXTREMITIES: No joint tenderness, effusion, or edema noted. Course Course Level of Care: Express Care Visit Vital Signs Vital signs: Vital Signs Temperature 37.8 C H 08/23/24 12:52 Pulse Rate 100 08/23/24 12:52 Respiratory Rate 18 08/23/24 12:52 Blood Pressure 105/66 08/23/24 12:52 Pulse Oximetry 100 08/23/24 12:52 Oxygen Delivery Room Air 08/23/24 12:52 Temperature 37.8 C H 08/23/24 12:52 Pulse Rate 100 08/23/24 12:52 Respiratory Rate 18 08/23/24 12:52 Blood Pressure 105/66 08/23/24 12:52 Pulse Oximetry 100 08/23/24 12:52 Oxygen Delivery Room Air 08/23/24 12:52 reviewed MDM - URI/Sore Throat MDM Narrative Medical decision making narrative: negative COVID and influenza test. Test could be a false negative due to testing early onset symptoms. Recommend patient take nkzc-adn-hdjvgtl medications. She is well-appearing, nontoxic. Please be advised this is a medical document. It is intended for nffg-gj-ywju communication. It is written in medical language and may contain unfamiliar abbreviations or verbiage. Medical documents are intended to carry relevant information, facts as evident, and the clinical opinion of the practitioner at the time of the encounter. This report may have been done utilizing a voice recognition system. Attempts have been made to correct errors. However, there may be uncorrected grammatical, spelling, and recognition errors present. The file time of this note does not necessarily represent the time of service. Differential Diagnosis Differential diagnosis: Likely upper respiratory infection, sinusitis, viral infection and influenza Discharge Plan Discharge Clinical Impression: Viral upper respiratory tract infection with cough, Exposure to influenza Patient Disposition: Home, Self-Care Condition: Stable Instructions: Upper Respiratory Infection (ED) Additional Instructions: Your influenza and covid test was negative. Due to your symptoms recently starting, your test may be a false negative. your symptoms are viral and may last 10-14 days. Take edya-chi-ituwumg medications to treat her symptoms. Take Tylenol every 6-8 hours as needed for pain and fever. Drink at least 64 oz of water a day. Follow-up with your primary care physician if symptoms are not improving. Patient Language: Bruneian Prescriptions: No Action PNV cmb#95-ferrous fumarate-FA [] 28 mg iron- 800 mcg tablet 1 tablet PO DAILY cephalexin 500 mg capsule 500 mg PO Q6H Qty: 28 0RF doxylamine-pyridoxine (vit B6) 10-10 mg tablet,delayed release (DR/EC) 1 tablet PO BID Qty: 30 0RF metoclopramide HCl 10 mg tablet 10 mg PO Q6H PRN (Reason: nausea and vomiting) Qty: 10 0RF Follow-up/Referrals: Manolo,Abram Hunter MD [Primary Care Provider] - Stand Alone Forms: Work/School Release IP Time of Disposition: 13:56
[2024-08-23 13:53] LABS: EDCOVIDSCREEN Negative (Negative); EDINFLUASCREEN Negative (Negative); EDINFLUBSCREEN Negative (Negative)
== END 2024-08-23 14:02 | disposition home or self-care (01) ==
PROVIDERS: Emergency Provider Nurse Practitioner Family; PCP Family Medicine
DX: J06.9 Acute upper respiratory infection, unspecified (principal); Z20.89 Contact with and (suspected) exposure to other communicable diseases; Z20.822 Contact with and (suspected) exposure to COVID-19
CPT/HCPCS: 87426; 87804; 99212; G0463

== ENCOUNTER 2025-01-13 11:09 | Emergency (ER) | payer OTHER, SELFPAY ==
--- NOTE | 2025-01-13 11:10 | ED_ITS ---
HPI - Eye Problem General Chief complaint: Eye Problems Stated complaint: LT Eye Problems Time Seen by Provider: 01/13/25 11:10 Source: patient Mode of arrival: ambulatory Limitations: no limitations History of Present Illness HPI Narrative: Tiffany is a 24-year-old female patient presenting to the clinic today with complaints left upper eye pain. She reports symptoms have been going on for 3 days. Has been using some warm compresses without relief. Feels as though she may have a stye. Denies any visual changes or drainage from the eye. No known foreign body or injury. Denies any eye pain Related Data Home Medications ?Medication ?Instructions ?Recorded ?Confirmed ?Last Taken ?Type acetaminophen 325 mg tablet mg 01/13/25 Unknown History docusate sodium 100 mg capsule mg PO 01/13/25 Unknown History ibuprofen 600 mg tablet mg 01/13/25 Unknown History lifitegrast 5 % eye drops in a drp 01/13/25 Unknown History dropperette (Xiidra) Allergies Allergy/AdvReac Type Severity Reaction Status Date / Time No Known Allergies Allergy Verified 01/13/25 11:19 Review of Systems Review of Systems: Pertinent positives per HPI. Patient denies any fever, chills, rash, headache, visual changes, dizziness, cough, runny nose, sore throat, shortness of breath, chest pain, palpitations, nausea, vomiting, diarrhea, constipation, abdominal pain, or any urinary issues. PMFSH Comments At the time of my signature, I reviewed and agree with the nursing past medical, surgical, social, and family history. There is no relevant family history pertinent to the patient complaint. Exam Narrative: General: Well-developed, well nourished, in no apparent distress Head: Normocephalic, atraumatic Eyes: Pupils equally round and reactive to light bilaterally, EOM intact, sclera and conjunctive clear, no discharge, left upper inner eyelid swollen and red with noted internal lid pustule, tender to palpation Ears: TMs intact and clear, ear canals clear, no drainage, grossly hearing normal. Nose: Nares patent, no discharge, no inflammation, no sinus tenderness. Mouth: Oropharynx without lesions or masses, good dentition, MMM. Neck: Supple, trachea midline, no enlargement of anterior or posterior cervical nodes, no thyroid masses or goiter palpable. Cardio: Regular rate and rhythm, s1 and s2 normal, no murmur appreciated. Resp: Clear to auscultation bilaterally anteriorly and posteriorly, no rhonchi, rales, wheezing or rubs Course Course Emergency Course: Portions of this record may have been created with voice recognition software. Level of Care: Express Care Visit Vital Signs Vital signs: Vital Signs Temperature 36.6 C 01/13/25 11:15 Pulse Rate 76 01/13/25 11:15 Respiratory Rate 16 01/13/25 11:15 Blood Pressure 112/75 01/13/25 11:15 Pulse Oximetry 100 01/13/25 11:15 Temperature 36.6 C 01/13/25 11:15 Pulse Rate 76 01/13/25 11:15 Respiratory Rate 16 01/13/25 11:15 Blood Pressure 112/75 01/13/25 11:15 Pulse Oximetry 100 01/13/25 11:15 Vital signs reviewed MDM - Eye Problem MDM Narrative Medical decision making narrative: At the time of visit patient is resting comfortably on the exam table. Patient appears to be nontoxic. Plan: I suspect patient has a internal stye to her left upper eyelid. Polymyxin eyedrops was sent to the pharmacy. Continue warm compresses. Supportive measures were discussed with the patient and they voiced understanding discharge instructions and agrees to treatment plan. Return precautions reviewed Differential Diagnosis Differential diagnosis: Likely corneal abrasion, conjunctivitis, acute iritis, hyphema, periorbital cellulitis, subconjunctival hemorrhage, glaucoma, corneal ulcer, ruptured globe and other (Stye) Discharge Plan Discharge Clinical Impression: Internal hordeolum of left eye Qualifiers: Eyelid: upper Qualified Code(s): H00.024 - Hordeolum internum left upper eyelid Patient Disposition: Home Condition: Stable Instructions: Antibiotic Form, Stye (ED) Additional Instructions: Practice good hand washing techniques Avoid touching eyes Instill eyedrops as prescribed-polymyxin May use warm moist washcloth compresses-15 minutes at a time every 2-3 hours If eyes are matted shut-do not pry eyes open-use a warm moist cloth to loosen matting and wipe matter away from eye May take Tylenol/Motrin as needed for pain or fever May take Benadryl as needed for itching Follow-up with your PCP in 3-5 days if symptoms persist or sooner if they worsen Go to the emergency room if you develop any fever that is not controlled by Tylenol or Motrin, loss of vision, eye pain, increase eye swelling,visual changes, headache, confusion, lethargy, weakness, chest pain, or shortness of breath. Patient Language: Luxembourger Prescriptions: New polymyxin B sulf-trimethoprim 10,000 unit- 1 mg/mL drops 1 drp LEFT EYE Q3H 7 Days Qty: 10 0RF Rx Instructions: while awake; do not exceed 6 doses in 24 hours No Action acetaminophen 325 mg tablet docusate sodium 100 mg capsule PO ibuprofen 600 mg tablet Xiidra 5 % dropperette Follow-up/Referrals: Manolo,Abram Hunter MD [Primary Care Provider] - Time of Disposition: 11:20 Quality NIHSS Nursing Documentation ED NIHSS nursing documentation: reviewed/agree
--- OUTSIDE RECORDS SUMMARY | 2025-01-13 11:11 | XMS_ITS | Referral Summary ---
Author Organization [facility] ospital Address [address] [place] [address] Care Team Providers Care Logging Assistant Name Role Phone Abram French MD Primary Care Provider [phone] Michelle Barclay MD Unavailable [phone] Encounters Date Type Department Care Team Description 01/13/2025 Telephone [facility] Family Medicine at [address] [place] [phone] Reynaldo Montalvo PA Appointment Request 01/04/2025 3:30 PM CDT Office Visit [facility] at [address] [place] [address] Michelle Barclay MD Status post section routine follow-up (Primary Dx); 2 weeks follow-up 12/21/2024 5:09 PM CDT - 12/25/2024 2:25 PM CDT Hospital Encounter [id number] [place] [address] Michelle Barclay MD 37 weeks gestation of (Primary Dx) Discharge Disposition: Discharge to home or self care 12/22/2024 3:30 PM CDT - 12/22/2024 5:10 PM CDT Surgery [facility] [address] [place] [phone] Michelle Barclay MD SECTION 12/22/2024 3:24 PM CDT Anesthesia Event [facility] [address] [place] [phone] Glendy Muhammad DO 12/21/2024 4:23 PM CDT - 12/21/2024 11:59 PM CDT Hospital Encounter [address] [address] Discharge Disposition: Discharge to home or self care 12/21/2024 3:00 PM CDT Office Visit [facility] at [address] [place] [phone] Michelle Barclay MD Encounter for supervision of other normal , third trimester (Primary Dx); 37 weeks gestation of ; Leukocytes in urine 12/16/2024 11:00 AM CDT Office Visit [facility] M[facility] at [address] [phone] Kimi Billingsley DO Unspecified high-risk (Primary Dx); 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; Bicornuate uterus 12/16/2024 10:30 AM CDT Clinical Support [facility] Maternal Medicine at [address] [place] [phone] Bicornuate uterus (Primary Dx); 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 12/16/2024 9:21 AM CDT - 12/16/2024 11:59 PM CDT Hospital Encounter [facility] Maternal Medicine Ultrasound-[address] [place] [address] 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; Supervision of high-risk , unspecified trimester Discharge Disposition: Discharge to home or self care 12/14/2024 7:52 PM CDT - 12/14/2024 11:59 PM CDT Hospital Encounter [phone] [place] [phone] Discharge Disposition: Discharge to home or self care 12/14/2024 3:15 PM CDT [facility] Visit [facility] at [address] [place] [phone] Michelle Barclay MD Encounter for supervision of other normal , third trimester (Primary Dx); 36 weeks gestation of 11/30/2024 11:45 AM CDT Office Visit [facility] at [address] [place] [phone] Michelle Barclay MD Encounter for supervision of other normal , third trimester (Primary Dx); 34 weeks gestation of 11/16/2024 8:00 AM CDT Clinical Support [facility] Maternal Medicine at [address] [phone] Unspecified high-risk (Primary Dx); Susceptible to varicella (non-immune), currently ; Bicornuate uterus; 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 11/16/2024 8:30 AM CDT Office Visit [facility] Maternal Medicine at [address] [phone] Marsha Garcia NP Unspecified high-risk (Primary Dx); Susceptible to varicella (non-immune), currently ; Bicornuate uterus; 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 11/16/2024 7:15 AM CDT - 11/16/2024 11:59 PM CDT Hospital Encounter [facility] Maternal Medicine Ultrasound-[address] [phone] 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; Supervision of high-risk , unspecified trimester Discharge Disposition: Discharge to home or self care 11/16/2024 11:45 AM CDT [facility] Visit [facility] at [address] [place] [phone] Michelle Barclay MD Encounter for supervision of other normal , third trimester (Primary Dx); 32 weeks gestation of 11/02/2024 2:45 PM CDT Office Visit [facility] at [address] [place] [phone] Michelle Barclay MD Encounter for supervision of other normal , third trimester (Primary Dx); 30 weeks gestation of 10/19/2024 9:00 AM CDT - 10/19/2024 11:59 PM CDT Hospital Encounter [facility] Maternal Medicine Ultrasound-[facility] [address] [place] [phone] 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; Supervision of high-risk , unspecified trimester Discharge Disposition: Discharge to home or self care 10/19/2024 9:30 AM CDT Office Visit [facility] Maternal Medicine at [facility] [address] [facility] [address] [place] [phone] Marsha Garcia NP Supervision of high-risk , first trimester (Primary Dx) 10/19/2024 2:00 PM CDT Office Visit [facility] at [address] [place] [phone] Michelle Barclay MD Encounter for supervision of other normal , third trimester (Primary Dx); 28 weeks gestation of ; Need for Tdap vaccination; Need for rhogam due to Rh negative mother from Last 3 Months Allergies No known active allergies Medications vit,bmii33-axnz -folic (PRENATABS RX) tablet tabletIndicatio ns:Procreative counseling and advice using natural family planning Take 1 tablet by mouth daily 30 tablet 11 3 Active omeprazole (PriLOSEC) 20 mg capsule Take 1 capsule (20 mg total) by mouth daily 01/05/20 25 Discontinu ed(Therapy completed) acetaminophen (TYLENOL) 325 mg tabletIndicatio ns:Pain Take 2 tablets (650 mg total) by mouth every 4 (four) hours as needed for pain 30 tablet 5 01/05/20 25 Discontinu ed(Therapy completed) docusate sodium (COLACE) 100 mg capsuleIndicati ons:constipatio n,Stool Softener Take 1 capsule (100 mg total) by mouth 2 (two) times a day 30 capsule 5 01/05/20 25 Discontinu ed(Therapy completed) ibuprofen (ADVIL,MOTRIN) 600 mg tabletIndicatio ns:Cramps Take 1 tablet (600 mg total) by mouth every 6 (six) hours as needed for pain 30 tablet 5 01/05/20 25 Discontinu ed(Therapy completed) oxyCODONE (ROXICODONE) 5 mg immediate release tabletIndicatio ns:Pain Take 1 tablet (5 mg total) by mouth every 4 (four) hours as needed for pain 15 tablet 5 01/05/20 25 Discontinu ed(Therapy completed) Active Problems Problem Noted Date Diagnosed Date Unspecified high-risk 09/23/2024 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 09/23/2024 Postcoital bleeding 06/30/2024 12 weeks gestation of [...] MONIE 12/2020 Irregular periods 02/05/2017 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 Resolved Problems Problem Noted Date Diagnosed Date Resolved Date 37 weeks gestation of 12/21/2024 01/04/2025 Immunizations Immunization Administration Dates Next Due DTaP, Unspecified 02/11/2005, 2,2000,06/03,2000 HPV, Unspecified 12/13/2013,01/08/2011 HPV9 03/02/2015 Hep A, Unspecified 02/11/2005,02/13/2004 Hep B, Unspecified 01/02/2001,2000, 000 HiB 05/04/2001, 1,2000,04/01 Influenza, Quadrivalent, Spl it, Preservative Free, Intramuscular 04/30/2017 MMR 02/11/2005,05/04/2001 Meningococcal ACWY, Unspecified 12/13/2013 Meningococcal B, OMV (Bexsero) 04/10/2017,2015 Meningococcal MCV4P (Menactra) 03/21/2016 Pneumococcal Conjugate 7-Valent 01/02/2001 Pneumococcal, Unspecified 2000,2000, 2000 Polio, Unspecified 02/11/2005, 1,2000,04/01 Tdap 10/19/2024,01/08/2011 Varicella 01/08/2011,05/04/2001 Social History Tobacco Use Types Packs/Day Years Used Date Smoking Tobacco: Never Smokeless Tobacco: Never Tobacco Cessation:Counseling Given: Not Answered Alcohol Use Standard Drinks/Week Comments Yes 0 (1 standard drink = 0.6 oz pur e alcohol) AUDIT-C Answer Date Recorded Q1: How often do you have a drink containing alcohol? Never 09/23/2024 Q2: How many drinks containi ng alcohol do you have on a typical day when you are drinking? Patient does not drink Q3: How often do you have si x or more drinks on one occasion? Never 09/23/2024 [place] Depression Scale Answer Date Recorded [place] Depression Scale Total 1 12/23/2024 The thought of harming myself has occurred to me . Never 12/23/2024 Personal Safety Answer Date Recorded Have you ever been in or are you currently in a harmful physical or emotional relationship or is someone making you feel afraid or unsafe? Denies 12/21/2024 Comments No Sex and Gender Information Value Date Recorded Sex Assigned at Not on file Legal Sex Female 1:30 AM MEAL ROOM HAND Gender Identity Not on file Sexual Orientation Straight 08/21/2020 10 :21 AM MEAL ROOM HAND Last Filed Vital Signs Vital Sign Reading Time Taken Comments Blood Pressure 119/74 12/25/2024 7:30 AM CDT Pulse 77 12/25/2024 7:30 AM CDT Temperature 36.4 C (97.5 F) 12/25/2024 7:30 AM CDT Respiratory Rate 18 12/25/2024 7:30 AM CDT Oxygen Saturation 100% 12/25/2024 7:30 AM CDT Inhaled Oxygen Concentration - - Weight 60.3 kg (133 lb) 01/04/2025 3:50 PM CDT Height 162.6 cm (5' 4) 01/04/2025 3:50 PM CDT Body Mass Index 22.83 01/04/2025 3:50 PM CDT Plan of Treatment Not on file Medical Devices Implanted Type Area Reweaver Device Identifier Shelf Expiration Date Model / Serial / Lot [employer] Adhesion Seprafilm 5x6in Translucent [facility] [employer] [facility] [employer] [id number] - [id number] Implanted:Qty: 1 on 12/22/2024 by Michelle Barclay MD at [facility] N/A: Uterus [employer] [id number] 08/15/2026 [id number] / / [id number] Procedures Procedure Name Priority Date/Time Associated Diagnosis Comments CBC WITHOUT DIFFERENTIAL Routine 12/23/2024 5:48 AM CDT BLEED SCREEN Timed 12/22/2024 7: 52 PM CDT RH IMMUNE GLOBULIN EVAL Timed 12/22/2024 7:52 PM CDT SURGICAL PATHOLOGY Routine 12/22/2024 4: 57 PM CDT AEROBIC AND ANAEROBIC CULTURE AND GRAM STAIN Routine 12/22/2024 4:06 PM CDT AEROBIC AND ANAEROBIC CULTURE AND GRAM STAIN STAT 12/22/2024 4:03 PM CDT MD AN PROCEDURE PLACEHOLDER Routine 12/22/2024 3:50 PM CDT SECTION 12/22/2024 3:25 PM CDT 37 weeks gestation of Case Notes Maternal fever of unknown origin, NRFS PREPARE RBC STAT 12/22/2024 1:51 PM CDT DIFFERENTIAL AUTO STAT 12/22/2024 9:4 1 AM CDT CBC WITH AUTO DIFFERENTIAL STAT 12/22/2024 9:41 AM CDT TYPE AND SCREEN STAT 12/21/2024 9:44 PM CDT RPR STAT 12/21/2024 9:44 PM CDT URINE CULTURE Routine 12/21/2024 7:07 PM CDT Leukocytes in urine URINALYSIS, MICROSCOPIC ONLY Routine 12/21/2024 7:05 PM CDT URINALYSIS AND REFLEX TO MICROSCOPIC AND CULTURE Routine 12/21/2024 7:05 PM CDT EGFR STAT 12/21/2024 5:52 PM CDT COMPREHENSIVE METABOLIC PANEL STAT 12/21/2024 5:52 PM CDT CBC WITHOUT DIFFERENTIAL STAT 12/21/2024 5:52 PM CDT POCT OB URINE SHORT DIP (GLUCOSE, PROTEIN, KETONES) Routine 12/21/2024 3:23 PM CDT Encounter for supervision of other normal , third trimester 37 weeks gestation of NONSTRESS TEST Routine 12/16/2024 3:47 PM CDT Bicornuate uterus 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 POCT URINALYSIS DIPSTICK Routine 12/16/2024 10:34 AM CDT Unspecified high-risk US OB BPP WITH US FOLLOW UP (C) Schedule Routine, Read Routine (OP Routine) 12/16/2024 10:03 AM CDT 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 Supervision of high-risk , unspecified trimester GROUP B STREPTOCOCCUS CULTURE Routine 12/14/2024 7:01 PM CDT Encounter for supervision of other normal , third trimester 36 weeks gestation of POCT URINALYSIS DIPSTICK Routine 11/16/2024 8:24 AM CDT Unspecified high-risk Susceptible to varicella (non-immune), currently Bicornuate uterus 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 US OB BPP WITH US FOLLOW UP (C) Schedule Routine, Read Routine (OP Routine) 11/16/2024 8:09 AM CDT 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 Supervision of high-risk , unspecified trimester POCT OB URINE SHORT DIP (GLUCOSE, PROTEIN, KETONES) Routine 11/02/2024 4:07 PM CDT Encounter for supervision of other normal , third trimester 30 weeks gestation of POCT OB URINE SHORT DIP (GLUCOSE, PROTEIN, KETONES) Routine 10/19/2024 3:08 PM CDT Encounter for supervision of other normal , third trimester 28 weeks gestation of POCT URINALYSIS DIPSTICK Routine 10/19/2024 10:33 AM CDT Supervision of high-risk , first trimester US OB FOLLOW UP Schedule Routine, Read Routine (OP Routine) 10/19/2024 9:39 AM CDT 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 Supervision of high-risk , unspecified trimester HEPATITIS C ANTIBODY Routine 05/19/2024 10:09 AM MEAL ROOM HAND Screening for venereal disease N. GONORRHOEAE/C. TRACHOMATIS AMPLIFICATION Routine 05/19/2024 10:03 AM MEAL ROOM HAND Screening for venereal disease PAP WITH REFLEX TO HIGH RISK HPV Routine 02/05/2021 10:36 AM CDT Well female exam with routine gynecological exam from Last 3 Months or Most Recently Relevant to Health Maintenance Results * (ABNORMAL) CBC without differential (12/23/2024 5:48 AM CDT) WBC 12.67(H) 3.80 - 9.90 K/cumm Hgb 9.7(L) 11.9 - 15.5 g/dL [facility] Hct 28.5(L) 35.6 - 45.5 % [facility] Plt 202 150 - 400 K/cumm [facility] MPV 11.5 9.1 - 12.3 fL [facility] RBC 3.22(L) 3.90 - 5.20 M/cumm [facility] MCV 88.5 81.3 - 96.4 fL [facility] MCH 30.1 27.1 - 33.3 pg [facility] MCHC 34.0 32.3 - 35.7 g/dL [facility] RDW CV 11.9 11.1 - 14.9 % [facility] RDW SD 38.1 35.7 - 48.1 fL [facility] NRBC abs 0.00 0.00 - 0.01 K/cumm [facility] Blood 12/23/2024 5:48 AM CDT 12/23/2024 5:58 AM CDT us Michelle Barclay MD LAB BLOOD ORDERABLES F inal Result Performing Organization Address [facility] de Phone Number [facility] [address] Department [place] [address] * Rh Immune Globulin Eval (12/22/2024 7:52 PM CDT) RhIg Eligible Yes, eligible RhIg Administration 1 vial of Rh Immune Globulin (300 mcg dose) [facility] Blood 12/22/2024 7:52 PM CDT 12/22/2024 8:28 PM CDT Narrative [facility] - 12/22/2024 8:50 PM CDT Number of weeks ?->20 weeks or greater antibody screen result:->Negative Rhogam given?->Given Date Given?->10/19/24 Number of vials requested:->1 Michelle Barclay MD LAB BLOOD BANK TEST OR DERABLES Final Result Performing Organization Address [facility] de Phone Number [facility] [address] Department [place] [address] * Bleed Screen (12/22/2024 7:52 PM CDT) Pathologist [facility] Bleed Screen Negative Blood 12/22/2024 7:52 PM CDT 12/22/2024 8:28 PM CDT Michelle Barclay MD LAB BLOOD BANK TEST OR DERABLES Final Result Performing Organization Address [facility] Co de Phone Number [facility] [address] Department [place] [address] * Surgical pathology (12/22/2024 4:57 PM CDT) Tissue (Placenta) 12/22/2024 4:57 PM CDT 12/23/2024 7:14 AM CDT Narrative PATHOLOGY [facility] - 12/27/2024 8:01 AM CDT [id number] [place], [place] [address] Tele: Mary Bravo MD - Clerk Entry Level Note to Patients: This report may contain a detailed description of human tissue sent by a health care provider to the laboratory for pathologic evaluation. The content of this report is essential for diagnosis and may provide important critical findings. This information may be unfamiliar to patients to review without a medical professional present. It is advised that the patient review this report in the presence of a health care provider who can answer questions and explain the details. SURGICAL PATHOLOGY REPORT Patient Name: CHAZ PATEL Address: [address] [place] [address] Gender: F : 2000 (Age: 24) Service: Obstetrics [place] [facility] [place] #: [id number] Patient Type: [facility]IENT Taken: 12/22/2024 Received 12/23/2024 Reported: 12/27/2024 Physician(s): Alejandro Stanford M.D. DIAGNOSIS: Placenta and umbilical cord, section: - 384 g placenta (less than tenth percentile for gestational age) - Three-vessel umbilical cord with no histopathologic abnormality - membranes with no histopathologic abnormality - Acute villitis and intervillositis with abscess formation - Mature villous morphology [facility]/12/27/2024 08:01 Examining Pathologist: Peyman Lopez M.D. Report Reviewed and Electronically Signed By Peyman Lopez M.D. SPECIMEN TYPE: A: PLACENTA CLINICAL IMPRESSION AND HISTORY: Status post primary section,NRFS, fever of unknown origin. 37 3/7 weeks. section GROSS DESCRIPTION: Received in formalin labeled with CHAZPETRA PATEL and placenta is a 384 gram (trimmed) oval, 15.3 x 15.3 x 1.9 cm placental disc with attached membranes and umbilical cord. The 9.3 x 1.3 cm magallon-white three-vessel umbilical cord inserts eccentrically, 3.6 cm from the nearest disc edge. No knots or lesions are identified. The membranes are blue-leo, attach to the disc margin and rupture marginally. The surface is blue-leo. The vessels arborize in a normal pattern and are unremarkable. The maternal surface is complete. Sections show brown-red parenchyma with two yellow-magallon fleshy lesions near the edge of the placenta ranging from 0.8 x 0.7 x 0.3 cm to 1.1 0.9 x 0.3 cm. The lesions occupy less than 5% of the maternal surface.. Senior Database Administrator sections are submitted as follows: A1 - membranes and umbilical cord, A2 - surface, A3 - maternal surface, A4 - Maternal surface including three largest lesions [facility]/12/23/2024 09:36 [facility] MICROSCOPIC DESCRIPTION: Microscopic examination shows multiple foci of acute villitis and intervillous sinus with abscess formation. A gram stain is negative. An immunohistochemical stain for CMV is also negative. Preliminary results were discussed with Dr. Daniela Zamora at 3:18 pm on 12/24/2024. Clerical Data Follows A; [address]12, [address], [address] REPORT IMAGES AND/OR SCANNED DOCUMENTS ONLY VIEWABLE IN PDF FORMAT The immunohistochemical test(s) cited in this report, if any, was developed and its performance characteristics determined by [facility] Pathology Department. It has not been cleared or approved by the U.S. Food and Drug Administration. The FDA has determined that such clearance or approval is not necessary. This test is used for clinical purposes. It should not be regarded as investigational or for research. [facility] is certified under the Clinical Laboratory Improvement Amendments of 1988 (CLIA) as qualified to perform high complexity testing. Immunostains were performed on formalin-fixed paraffin embedded tissue using a polymer diaminobenzidine chromogen detection system. Antibodies used may include clone SP1 (rabbit monoclonal, estrogen receptor), clone 1E2 (rabbit monoclonal progesterone receptor), Ki-67 (rabbit monoclonal, 30-9), CD117 (rabbit polyclonal, c-kit), and anti-Her-2/fernanda (4B5) (rabbit monoclonal primary antibody). In the event that immunohistochemistry or special stains have been performed, attending physician has confirmed appropriateness of controls. Frozen section, operating room consultation, gross examination and dissection, and case sign out may have been performed in part or completely in the following laboratories: [facility], [address] [place] [address] [facility], [address], [place] [address]. Michelle Barclay MD LAB PATHOLOGY ORDERABL ES Final Result Performing Organization Address [facility] Co de Phone Number PATHOLOGY [facility] Laboratory Receiving [address] [place] [address] * Aerobic and anaerobic culture and gram stain Placenta Uterus (12/22/2024 4:06 PM CDT) Direct Specimen Exam Stain: Abundant polymorphonuclear leukocytes seen. No organisms seen. Report Final Report: No growth [facility] Placenta (Uterus) 12/22/2024 4:06 PM CDT 12/22/2024 4:20 PM CDT Michelle Barclay MD LAB MICROBIOLOGY - GEN ERAL ORDERABLES Final Result Performing Organization Address [facility] Co de Phone Number [facility] [address] Department [place] [address] * Aerobic and anaerobic culture and gram stain Placenta (12/22/2024 4:03 PM CDT) Direct Specimen Exam Stain: Rare polymorphonuclear leukocytes seen. No organisms seen. Report Final Report: No growth [facility] Placenta () 12/22/2024 4:03 PM CDT 12/22/2024 4:19 PM CDT Michelle Barclay MD LAB MICROBIOLOGY - GEN ERAL ORDERABLES Final Result Performing Organization Address [facility] Co de Phone Number [facility] [address] Department [place] [address] * MD AN PROCEDURE PLACEHOLDER (12/22/2024 3:50 PM CDT) Narrative Glendy Muhammad, - 12/22/2024 3:50 PM CDT Glendy Muhammad DO 12/22/2024 3:51 PM Spinal Block Patient location: OR (L&D OR) End time: 12/22/2024 3:38 PM Reason for block: primary anesthetic Staff: Placed by: Anesthesiologist: Glendy Muhammad DO Procedure prep: Preprocedure checklist: patient identified, procedure contraindications assessed, procedure consent, IV checked, risks, benefits and alternatives discussed, monitors and equipment checked and timeout performed Patient position: sitting Procedure performed while patient: awake Monitoring: oximetry and blood pressure Prep solution: iodine povacrylex PPE: provider hat/mask, sterile gloves and sterile drape Skin infiltrated with lidocaine 1%: yes Spinal: Approach: midline Introducer used: yes Location: L4-5 Spinal injection: CSF demonstrated, no aspiration of heme and no paresthesias noted Number of attempts: 2 Spinal Needle: Needle type: pencil-tip Needle gauge: 25 G Needle length: 5 cm Assessment: Sensory deficit - left: T4 Sensory deficit - right: T4 Events: patient tolerated procedure well with no complications Glendy Muhammad DO ANESTHESIA ORDERABLES Sally l Result * Prepare RBC: 2 Units (12/22/2024 1:51 PM CDT) Product code [id number] Unit Number [id number] 6-0 [facility] Product Blood Type EG [facility] Dispense Status RETURNED [facility] Product code [id number] [facility] Unit Number [id number] 3-2 [facility] Product Blood Type [facility] Dispense Status RETURNED [facility] Blood 12/22/2024 1:51 PM CDT Narrative [facility] - 12/24/2024 6:39 AM CDT Other indication->high risk per protocol Are special requirements needed? (All products are leukoreduced and CMV- safe)- >No Date required:-[id number] LRRBC # of [id number] Reasons:-Other (specify)} Michelle Barclay MD BLOOD BANK PRODUCT ORD ERABLES Final Result [facility] [address] Department [place] [address] * (ABNORMAL) Differential, auto (12/22/2024 9:41 AM CDT) Neutrophil abs 11.16(H) 1.50 - 6.50 K/cumm Imm gran abs 0.08 0.00 - 0.10 K/cumm [facility] Lymphocyte abs 0.72(L) 0.80 - 3.30 K/cumm [facility] Monocyte abs 0.79 0.20 - 0.80 K/cumm [facility] Eosinophil abs 0.06 0.00 - 0.50 K/cumm [facility] Basophil abs 0.03 0.00 - 0.10 K/cumm [facility] Neutrophil pct 86.9 % [facility] Comment: Interpretive Data Percent cell count reference ranges are not reported, since discordance with absolute values may lead to misinterpretation of CBC data. Current Interpretive Data was last revised on 2017. Imm gran pct 0.6 % [facility] Comment: Interpretive Data Percent cell count reference ranges are not reported, since discordance with absolute values may lead to misinterpretation of CBC data. Current Interpretive Data was last revised on 2017. Lymphocyte pct 5.6 % [facility] Comment: Interpretive Data Percent cell count reference ranges are not reported, since discordance with absolute values may lead to misinterpretation of CBC data. Current Interpretive Data was last revised on 2017. Monocyte pct 6.2 % [facility] Comment: Interpretive Data Percent cell count reference ranges are not reported, since discordance with absolute values may lead to misinterpretation of CBC data. Current Interpretive Data was last revised on 2017. Eosinophil pct 0.5 % [facility] Comment: Interpretive Data Percent cell count reference ranges are not reported, since discordance with absolute values may lead to misinterpretation of CBC data. Current Interpretive Data was last revised on 2017. Basophil pct 0.2 % [facility] Comment: Interpretive Data Percent cell count reference ranges are not reported, since discordance with absolute values may lead to misinterpretation of CBC data. Current Interpretive Data was last revised on 2017. Blood 12/22/2024 9:41 AM CDT 12/22/2024 9:46 AM CDT Derrick Mack MD LAB BLOOD ORDERABLES Final Resul t Performing Organization Address [facility]/ZIP Co de Phone Number [facility] [address] Department [place] [address] * (ABNORMAL) CBC with auto differential (12/22/2024 9:41 AM CDT) [facility] WBC 12.84(H) 3.80 - 9.90 K/cumm Hgb 11.3(L) 11.9 - 15.5 g/dL [facility] Hct 32.5(L) 35.6 - 45.5 % [facility] Plt 190 150 - 400 K/cumm [facility] MPV 11.7 9.1 - 12.3 fL [facility] RBC 3.72(L) 3.90 - 5.20 M/cumm [facility] MCV 87.4 81.3 - 96.4 fL [facility] MCH 30.4 27.1 - 33.3 pg [facility] MCHC 34.8 32.3 - 35.7 g/dL [facility] RDW CV 11.9 11.1 - 14.9 % [facility] RDW SD 38.1 35.7 - 48.1 fL [facility] NRBC abs 0.00 0.00 - 0.01 K/cumm [facility] Blood 12/22/2024 9:41 AM CDT 12/22/2024 9:46 AM CDT Derrick Mack MD LAB BLOOD ORDERABLES Final Resul t [facility] [address] Department [place] [address] * RPR Blood (12/21/2024 9:44 PM CDT) [facility] RPR Nonreactive Nonreactive Comment:Testing performed by : [facility], [address] [place]., [address] Blood 12/21/2024 9:44 PM CDT 12/22/2024 1:29 PM CDT Michelle Barclay MD LAB MICROBIOLOGY - GEN ERAL ORDERABLES Final Result Performing Organization Address [facility] Co de Phone Number [facility] [address] Department [place] [address] * Type and screen (12/21/2024 9:44 PM CDT) ABO Rh B Negative Brooke, indirect Negative [facility] Blood 12/21/2024 9:44 PM CDT 12/21/2024 10:22 PM CDT Michelle Barclay MD LAB BLOOD BANK TEST OR DERABLES Final Result Performing Organization Address [facility] de Phone Number [facility] [address] Department [place] [address] * (ABNORMAL) Urine culture Urine, clean voided (12/21/2024 7:07 PM CDT) Pathologist [facility] Report Final Report: Growth indicates contamination with gram-positive malka. (.) Organism GROWTH INDICATES CONTAMINATION WITH GRAM-POS MALKA [facility] Urine, clean voided 12/21/2024 7:07 PM CDT 12/21/2024 7:07 PM CDT Michelle Barclay MD LAB MICROBIOLOGY - GEN ERAL ORDERABLES Final Result Performing Organization Address [facility] Co de Phone Number [facility] [address] Department [place], [place] [id number] * (ABNORMAL) Urinalysis reflex to microscopic and culture Urine, clean voided (12/21/2024 7:05 PM CDT) Color, ur Straw Yellow Clarity, ur Clear Clear [facility] Specific gravity, ur 1.010 1.003 - 1.030 [facility] pH, urine 7.0 [facility] Comment: Interpretive Data U rine pH is affected by diet, medications, systemic acid-base disturbances, and renal tubular function. pH may affect urinary stone formation. For example, urine pH below 6.0 may help reduce the tendency for calcium phosphate stones and pH greater than 6.0 may reduce the tendency for uric acid stone formation. Source: [facility] Current Interpretive Data was last revised on 2017 Protein, ur ql Negative Negative [facility] Glucose, ur ql Negative Negative [facility] Ketones, ur Negative Negative [facility] Bilirubin, ur Negative Negative [facility] Blood, ur Negative Negative [facility] Urobilinogen, ur <2.0 <2.0 mg/dL [facility] Nitrite, ur Negative Negative [facility] Leukocyte esterase, ur 3+(A) Negative [facility] UA reflex comment Reflex to microscopic UA will be performed. [facility] Urine, clean voided 12/21/2024 7:05 PM CDT 12/21/2024 7:12 PM CDT Terrie Clark [facility] LAB MICROBIOLOGY - GENERAL ORDERABLES Final Result [facility] [address] Department [place] [address] * (ABNORMAL) Urinalysis, microscopic only (12/21/2024 7:05 PM CDT) WBC, ur 6-10(A) 0 - 5 /HPF RBC, ur 0-2 0 - 2 /HPF [facility] Epithelial cells, squamous, ur 1-5 0 - 5 /HPF [facility] Bacteria, ur 1+(A) [facility] Mucous, ur Present(A) [facility] Culture Reflex Comment Reflex conditions for urine culture (WBC >10) not met. [facility] Urine, clean voided 12/21/2024 7:05 PM CDT 12/21/2024 7:56 PM CDT Terrie COLLADO LAB URINE ORDERABLES Final Result Performing Organization Address City/[facility]/ZIP Co de Phone Number [facility] [address] Department [place] [address] * eGFR (12/21/2024 5:52 PM CDT) eGFR >90 >=60 mL/min/1. 73 m2 Comment: Interpretive Data Reference Interval Normal >/= 90 mL/min/1.73m2 Mildly decreased* 60 - 89 mL/min/1.73m2 Mildly to moderately decreased 45 - 59 mL/min/1.73m2 Moderately to severely decreased 30 - 44 mL/min/1.73m2 Severely decreased 15 - 29 mL/min/1.73m2 Kidney Failure < 15 mL/min/1.73m2 *Relative to young adult level Estimated glomerular filtration rate is determined by the 2020 CKD-EPI equation recommended by the National Kidney Foundation (A Unifying Approach to GFR Estimation: Recommendations of the NKF-ASK Task Force on Reassessing the Inclusion of Race in Diagnosing Kidney Disease, JASN 2020). The CKD-EPI equation should not be used for patients with unstable renal function and has not been validated in children and those over 70. Current interpretive data was last reviewed 2021. Blood 12/21/2024 5:52 PM CDT 12/21/2024 6:03 PM CDT Terrie COLLADO LAB BLOOD ORDERABLES Final Result Performing Organization Address [facility]/ZIP Co de Phone Number [facility] [address] Department [place] [address] * (ABNORMAL) CBC without differential (12/21/2024 5:52 PM CDT) Pathologist [facility] WBC 12.05(H) 3.80 - 9.90 K/cumm Hgb 11.4(L) 11.9 - 15.5 g/dL [facility] Hct 33.9(L) 35.6 - 45.5 % [facility] Plt 210 150 - 400 K/cumm [facility] MPV 11.7 9.1 - 12.3 fL [facility] RBC 3.82(L) 3.90 - 5.20 M/cumm [facility] MCV 88.7 81.3 - 96.4 fL [facility] MCH 29.8 27.1 - 33.3 pg [facility] MCHC 33.6 32.3 - 35.7 g/dL [facility] RDW CV 12.1 11.1 - 14.9 % [facility] RDW SD 38.5 35.7 - 48.1 fL [facility] NRBC abs 0.00 0.00 - 0.01 K/cumm [facility] Blood 12/21/2024 5:52 PM CDT 12/21/2024 6:03 PM CDT Terrie Clark [facility] LAB BLOOD ORDERABLES Final Result [facility] [address] Department [place] [address] * (ABNORMAL) Comprehensive metabolic panel (12/21/2024 5:52 PM CDT) Sodium 141 135 - 145 mmol/L Potassium, pl 3.4 3.3 - 4.9 mmol/L [facility] Chloride 108 97 - 110 mmol/L [facility] CO2 20(L) 22 - 32 mmol/L [facility] Anion gap 13 2 - 15 mmol/L [facility] BUN 9 6 - 25 mg/dL [facility] Creatinine 0.53(L) 0.60 - 1.10 mg/dL [facility] Glucose 80 70 - 199 mg/dL [facility] Comment: Interpretive Data Fasting glucose >/= 126 mg/dl is diagnostic for diabetes. Fasting is defined as no caloric intake for at least 8 hours. Fasting glucose between 100 mg/dl to 125 mg/dl is diagnostic of prediabetes. In a patient with classic symptoms of hyperglycemia or hyperglycemic crisis, a random glucose >/= 200 mg/dl is diagnostic for diabetes. In the absence of unequivocal hyperglycemia, results should be confirmed by repeat testing. The classification and Diagnosis of Diabetes Diabetes Care 202; 46: S19-S40. Current interpretive data was last revised 2022. Calcium 8.9 8.5 - 10.3 mg/dL [facility] Bilirubin, total 0.2 0.1 - 1.2 mg/dL [facility] Protein, pl 7.1 6.5 - 8.5 g/dL [facility] Albumin 3.4(L) 3.5 - 5.0 g/dL [facility] Alk phos 180(H) 40 - 130 Units/L [facility] ALT 13 7 - 45 Units/L [facility] AST 23 10 - 45 Units/L [facility] Comment:Slightly Hemolyzed S pecimen Blood 12/21/2024 5:52 PM CDT 12/21/2024 6:03 PM CDT Result [facility] Terrie Clark [facility] LAB BLOOD ORDERABLES Final Result [facility] [address] Department [place] [address] * POCT OB urine short dip (glucose, protein, ketones) (12/21/2024 3:23 PM CDT) Glucose, ur, POC Negative Negative Protein, ur, POC Negative Negative Ketones, ur, POC Negative Negative Lot Number [id number] Urine 12/21/2024 3:23 PM CDT Result [facility] Michelle Barclay MD POINT OF CARE TEST ORD ERABLES Final Result * nonstress test - (12/16/2024 3:47 PM CDT) Result [facility] Kimi Billingsley DO OB GYNE ORDERABLES Final Resul t * (ABNORMAL) POCT urinalysis dipstick (12/16/2024 10:34 AM CDT) Glucose, ur, POC Negative Negative Bilirubin, ur, POC Negative Negative Ketones, ur, POC Negative Negative Specific [place], POC 1.010 1.003 - 1.030 Blood, ur, POC Negative Negative pH, ur, POC 7.0 5.0 - 8.0 Protein, ur, POC Negative Negative Urobilinogen, urine, POC 0.2 0.2 - 1.0 mg/dL Nitrite, ur, POC Negative Negative Leukocytes, ur, POC Small(A) Negative Lot Number [id number] Urine 12/16/2024 10:3 4 AM CDT Kimi Billingsley DO POINT OF CARE TEST ORDERABLES Final Result * US OB BPP with US Follow Up (C) (12/16/2024 10:03 AM CDT) Fetus# Fetus1 VIEWPOINT Estimated Weight 2,718 g&grams VIEWPOINT Placenta Details anterior VIEWPOINT Presentation Vertex VIEWPOINT Anatomical Region Laterality Modality N/A Ultrasound 12/16/2024 9:30 AM CDT Impressions 12/16/2024 10:02 AM CDT SIUP @ 36w 4d with positive cardiac activity. position is Vertex Interval growth has been appropriate AGA growth is noted with EFW at the 29%. Normal fluid. The placenta is anterior, there are no placental abnormalities identified. Bowel continues to remain normal in appearance. BPP 8/8, reassuring testing. Narrative Procedure Note Kimi Billingsley DO - 12/16/2024 IMPRESSION: SIUP @ 36w 4d with positive cardiac activity. position is Vertex Interval growth has been appropriate AGA growth is noted with EFW at the 29%. Normal fluid. The placenta is anterior, there are no placental abnormalities identified. Bowel continues to remain normal in appearance. BPP 8/8, reassuring testing. Michelle Barclay MD IMG OB US PROCEDURES F inal Result * Group B streptococcal culture Vaginal/Rectal (12/14/2024 7:01 PM CDT) Report Final Report: No Beta-streptoc occus Group B isolated Vaginal/Rectal 12/14/2024 7: 01 PM CDT 12/14/2024 7:02 PM CDT Michelle Barclay MD LAB MICROBIOLOGY - GEN ERAL ORDERABLES Final Result [facility] [address] Department [place] [address] * (ABNORMAL) POCT urinalysis dipstick (11/16/2024 8:24 AM CDT) Glucose, ur, POC Negative Negative Bilirubin, ur, POC Negative Negative Ketones, ur, POC Negative Negative Specific [place], POC 1.015 1.003 - 1.030 Blood, ur, POC Negative Negative pH, ur, POC 7.0 5.0 - 8.0 Protein, ur, POC Negative Negative Urobilinogen, urine, POC 0.2 0.2 - 1.0 mg/dL Nitrite, ur, POC Negative Negative Leukocytes, ur, POC Small(A) Negative Lot Number [id number] Urine 11/16/2024 8:24 AM CDT Marsha Garcia NP POINT OF CARE TEST ALVAREZ LIZAMA Final Result * US OB BPP with US Follow Up (C) (11/16/2024 8:09 AM CDT) Fetus# Fetus1 VIEWPOINT Estimated Weight 1,954 g&grams VIEWPOINT Placenta Details anterior VIEWPOINT Presentation Vertex VIEWPOINT Anatomical Region Laterality Modality N/A Ultrasound 11/16/2024 7:34 AM CDT Impressions 11/16/2024 8:09 AM CDT SIUP @ 32w 1d with positive cardiac activity. position is Vertex interval growth has been appropriate. AGA growth is noted with EFW at the 46%. Bowel remains normal in appearance. Normal fluid. The placenta is anterior, there are no placental abnormalities identified. Narrative Procedure Note Kimi Billingsley, - 11/16/2024 IMPRESSION: SIUP @ 32w 1d with positive cardiac activity. position is Vertex interval growth has been appropriate. AGA growth is noted with EFW at the 46%. Bowel remains normal in appearance. Normal fluid. The placenta is anterior, there are no placental abnormalities identified. Michelle Barclay MD IMG OB US PROCEDURES F inal Result * POCT OB urine short dip (glucose, protein, ketones) (11/02/2024 4:07 PM CDT) Glucose, ur, POC Negative Negative MG/DL Protein, ur, POC Negative Negative Ketones, ur, POC Negative Negative Lot Number [id number] Urine 11/02/2024 4:07 PM CDT Result [facility] Michelle Barclay MD POINT OF CARE TEST ORD ERABLES Final Result * POCT OB urine short dip (glucose, protein, ketones) (10/19/2024 3:08 PM CDT) Glucose, ur, POC Negative Negative MG/DL Protein, ur, POC Negative Negative Ketones, ur, POC Negative Negative Lot Number [id number] Urine 10/19/2024 3:08 PM CDT Result [facility] Michelle Barclay MD POINT OF CARE TEST ORD ERABLES Edited Result - Final * (ABNORMAL) POCT urinalysis dipstick (10/19/2024 10:33 AM CDT) Glucose, ur, POC Negative Negative MG/DL Bilirubin, ur, POC Negative Negative, Small, Moderate, Large Ketones, ur, POC Negative Negative Specific [place], POC 1.015 1.003 - 1.030 Blood, ur, POC Negative Negative pH, ur, POC 7.0 5.0 - 8.0 Protein, ur, POC Negative Negative Urobilinogen, urine, POC 0.2 0.2 - 1.0 mg/dL Nitrite, ur, POC Negative Negative Leukocytes, ur, POC Small(A) Negative Lot Number [id number] Urine 10/19/2024 10:3 3 AM CDT Result [facility] Marsha Garcia [employer] POINT OF CARE TEST ALVAREZ LIZAMA Edited Result - Final * US Ob Follow Up (10/19/2024 9:39 AM CDT) Fetus# Fetus1 VIEWPOINT Estimated Weight 1,137 g&grams VIEWPOINT Placenta Details anterior VIEWPOINT Presentation Vertex VIEWPOINT Anatomical Region Laterality Modality Abdomen N/A Ultrasound 10/19/2024 9:04 AM CDT Impressions 10/19/2024 11:31 AM CDT SIUP @ 28w 1d with positive cardiac activity. position is Vertex Interval growth has been appropriate. AGA growth is noted with EFW at the 28%. The bowel is normal in appearance today without increased echogenicity. Normal fluid. The placenta is anterior, there are no placental abnormalities identified. Narrative Procedure Note Kimi Billingsley DO - 10/19/2024 IMPRESSION: SIUP @ 28w 1d with positive cardiac activity. position is Vertex Interval growth has been appropriate. AGA growth is noted with EFW at the 28%. The bowel is normal in appearance today without increased echogenicity. Normal fluid. The placenta is anterior, there are no placental abnormalities identified. Michelle Barclay MD IMG OB US PROCEDURES F inal Result * Hepatitis C antibody Blood (05/19/2024 10:09 AM MEAL ROOM HAND) Hep C Ab Nonreactive Nonreactive Comment: Interpretive [...] on 2019. Blood 05/19/2024 10:0 9 AM MEAL ROOM HAND 05/19/2024 1:53 PM MEAL ROOM HAND Mago WILHELM LAB MICROBIOLOGY - GENERA L ORDERABLES Final Result Performing Organization Address [facility] Co de Phone Number [facility] [address] Department [place] [address] * N. gonorrhoeae/C. trachomatis Amplification Urine (05/19/2024 10:03 AM MEAL ROOM HAND) C. trachomatis Not Detected Not Detected N. gonorrhoeae Not Detected Not Detected [facility] Comment: Interpretive Data This assay detects Chlamydia trachomatis and Neisseria gonorrhoeae by nucleic acid amplification testing (NAAT). This assay has been cleared by the [place] Food and Drug administration. The performance characteristics of this test have been verified by the [facility]. The performance characteristics of this test have not been evaluated in individuals less than 14 years of age. Current Interpretive Data last revised 2023. Urine 05/19/2024 10:0 3 AM MEAL ROOM HAND 05/19/2024 2:19 PM MEAL ROOM HAND Mago [facility] LAB MICROBIOLOGY - GENERA L ORDERABLES Final Result Performing Organization Address [facility] Co de Phone Number [facility] [address] Department [place] [address] * Pap with reflex to High Risk HPV (02/05/2021 10:36 AM CDT) Swab (Pap test) 02/05/2021 1 0:36 AM CDT 02/05/2021 10:25 PM CDT Narrative PATHOLOGY [facility] - 02/08/2021 2:45 PM CDT EPIC results best viewed via link to PDF [place] [id number] [facility], [place], [place] [address] Tele: Mary Bravo MD - Clerk Entry Level CYTOLOGY REPORT Patient Name: CHAZ PIERRE Address: [address] [address] Gender: F : 2000 (Age: 21) Service: Location: N : [id number] Hospital #: [id number] Patient Type: [facility] Taken: 02/05/2021 Reported: 02/08/2021 Physician(s): Michelle [...] LAB CYTOLOGY ORDERABLE S Final Result PATHOLOGY [facility] Laboratory Receiving [address] [place] [address] from Last 3 Months or Most Recently Relevant to Health Maintenance Insurance [facility] CHOICE PLUS [facility] H[facility]/PPO Address: [address] [address] [place] [address] [place] [address] [place] [address] Advance Directives For more information, please contact: [phone] * Full Code (Latest Code Status on File) Date Activated Date Inactivated Comments 12/22/2024 6:11 PM 12/25/2024 6:34 PM * Full Code Date Activated Date Inactivated Comments 12/21/2024 9:33 PM 12/22/2024 6:11 PM Full CPR in case of cardiopulmonary arrest Care Teams Logging Assistant Relationship Specialty Start Date End Date Abram French MD PCP - General Family Medicine 08/11/19 Michelle Barclay MD [id number] [address] Consulting Physician Obstetrics and Gynecology 12/25/24
--- OUTSIDE RECORDS SUMMARY | 2025-01-13 11:11 | XMS_ITS | Clinical Summary ---
Author Organization [facility] ospital Address [address] [place] [address] Care Team Providers Care Medical Reimbursement Manager Name Role Phone Abram French MD Primary Care Provider [phone] Michelle Barclay MD Unavailable [phone] Allergies No known active allergies Medications vit,[id number] (PRENATABS RX) tablet tabletIndicatio ns:Procreative counseling [...] Date 37 weeks gestation of 12/21/2024 01/04/2025 Encounters Date Type Department Care Team Description 01/13/[address] [facility] Family Medicine at [address] [place] [address] Reynaldo Montalvo PA Appointment Request 01/04/2025 3:30 PM CDT Office Visit [facility] at [address] [place] [address] Michelle Barclay MD Status post section routine follow-up (Primary Dx); 2 weeks follow-up 12/22/2024 3:30 PM CDT - 12/22/2024 5:10 PM CDT Surgery [facility] [address] [place] [phone] Michelle Barclay MD SECTION 12/22/2024 3:24 PM CDT Anesthesia Event [facility] [address] [place] [phone] Glendy Muhammad DO 12/21/2024 5:09 PM CDT - 12/25/2024 2:25 PM CDT Hospital Encounter [address] [phone] Michelle Barclay MD 37 weeks gestation of (Primary Dx) Discharge Disposition: Discharge to home or self care 12/21/2024 4:23 PM CDT - 12/21/2024 11:59 PM CDT Hospital Encounter [address] [address] Discharge Disposition: Discharge to home or self care 12/21/2024 3:00 PM CDT Office Visit [facility] at [address] [place] [address] Michelle Barclay MD Encounter for supervision of other normal , third trimester (Primary Dx); 37 weeks gestation of ; Leukocytes in urine 12/16/2024 11:00 AM CDT Office Visit [facility] at [place] [id number] [facility] [address] [place] [phone] Kimi Billingsley, Unspecified high-risk (Primary Dx); 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; Bicornuate uterus 12/16/2024 10:30 AM CDT Clinical Support [facility] Maternal Medicine at [facility] [address] [facility] [address], [place] [address] Bicornuate uterus (Primary Dx); 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 12/16/2024 9:21 AM CDT - 12/16/2024 11:59 PM CDT Hospital Encounter [facility] Maternal Medicine Ultrasound-[facility] [address] [place] [address] 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; Supervision of high-risk , unspecified trimester Discharge Disposition: Discharge to home or self care 12/14/2024 7:52 PM CDT - 12/14/2024 11:59 PM CDT Hospital Encounter [address] [address] Discharge Disposition: Discharge to home or self care 12/14/2024 3:15 PM CDT [facility] at [address] [phone] Michelle Barclay MD Encounter for supervision of other normal , third trimester (Primary Dx); 36 weeks gestation of 11/30/2024 11:45 AM CDT Office Visit [facility] at [address] [phone] Michelle Barclay MD Encounter for supervision of other normal , third trimester (Primary Dx); 34 weeks gestation of 11/16/2024 11:45 AM CDT Office Visit [facility] at [address] [phone] Michelle Barclay MD Encounter for supervision of other normal , third trimester (Primary Dx); 32 weeks gestation of 11/16/2024 8:30 AM CDT Office Visit [facility] Maternal Medicine at [address] [address] Marsha Garcia NP Unspecified high-risk (Primary Dx); Susceptible to varicella (non-immune), currently ; Bicornuate uterus; 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 11/16/2024 8:00 AM CDT Clinical Support [facility] Maternal Medicine at [address] [phone] Unspecified high-risk (Primary Dx); Susceptible to varicella (non-immune), currently ; Bicornuate uterus; 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 11/16/2024 7:15 AM CDT - 11/16/2024 11:59 PM CDT Hospital Encounter [facility] Maternal Medicine Ultrasound-[address] [phone] 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; Supervision of high-risk , unspecified trimester Discharge Disposition: Discharge to home or self care 11/02/2024 2:45 PM CDT Office Visit [facility] at [address] [phone] Michelle Barclay MD Encounter for supervision of other normal , third trimester (Primary Dx); 30 weeks gestation of 10/19/2024 2:00 PM CDT Office Visit [facility] at [address] [phone] Michelle Barclay MD Encounter for supervision of other normal , third trimester (Primary Dx); 28 weeks gestation of ; Need for Tdap vaccination; Need for rhogam due to Rh negative mother 10/19/2024 9:30 AM CDT Office Visit [facility] Maternal Medicine at [address] [phone] Marsha Garcia, [place] Supervision of high-risk , first trimester (Primary Dx) 10/19/2024 9:00 AM CDT - 10/19/2024 11:59 PM CDT Hospital Encounter [facility] Maternal Medicine Ultrasound-[facility] [address] [place] [address] 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; Supervision of high-risk , unspecified trimester Discharge Disposition: Discharge to home or self care from Last 3 Months Immunizations Immunization Administration Dates Next Due DTaP, [...] Unspecified 02/11/2005, 1,2000,04/01 Tdap 10/19/2024,01/08/2011 Varicella 01/08/2011,05/04/2001 Surgical History Surgery Date Site/Laterality [...] more drinks on one occasion? 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 Obstetrics History Para Term AB IAB SAB Ectopic Multiple Livin g Live Births 2 1 1 0 1 0 1 0 0 1 1 Date Outcome GA Total Labor Labor/2nd/3rd Weight Sex Type Anes PTL Daphne A1 A5 Name Clin 3 SAB 2024 Term 37w 3d 0h 01m 0h 01m 2.65 kg (5 lb 13.5 oz) F C-Sec tion Spinal N Livin g 8 9 Kynsle e A Patel Michelle Quinones MD Complications: Intolera nce Delivery Location:This Facil ity ([facility] D PROCEDURE) Summary Episode Dates Number of Fetuses Estimated Date of Delivery 05/19/2024 - Present (01/13/2025) 1 01/09/2025 (set by Mago Starr PA on 05/19/2024 based on Last Menstrual Period on 04/04/2024) Dating Summary Based On ANTONIO GA Diff Last Menstrual Period on 04/04/2024 01/09/2025 Working Ultrasound on 05/19/2024 01/11/2025 -2d GA:6w1d Vitals Pregravid Weight Height TWG (As of 01/13/2025) Pregrav id BMI 162.6 cm (5' 4) Date GA Fund Present FHR Mvmt BP Weight Edema Alb Glu Ket Dil/ Eff/Sta 024 12w3d Inpatient data not displayed here. See encounter summary. 025 36w2d 70.3 kg (155 lb) . 025 37w2d 106/7 0 70.8 kg (156 lb) /-3 025 37w3d Inpatient data not displayed here. See encounter summary. Notes Progress Notes - Office Visi t - 01/04/2025 - GA:37w3d 01/04/2025 - 37w3d - [facility], Michelle Mccarty MD Chaz Patel is in for her visit. She is now . She delivered by primary section, on 12/22/24 for FITL, maternal fever. Placental pathology showed chorioamnionitis and abscess. Cultures were negative. She had a girl named Carl, weighing 5lbs 13oz who is healthy. She's generally doing well, denies current pain or bleeding issues, and has no significant depression issues. She is pumping with some supplementation. She only gets 1-2 ounces at a time. Considering weaning. goes back to work tomorrow. Feeling nervous. Mom is available to help if needed. OB History Para Term AB Living 2 1 1 0 1 1 SAB IAB Ectopic Multiple Live Births 1 0 0 0 1 # Outcome Date GA Lbr Glenn/2nd Weight Sex Type Anes PTL Lv 2 Term 12/22/24 37w3d 2.65 kg (5 lb 13.5 oz) F Spinal N DAPHNE Complications: Intolerance Name: Kynslee A Patel Apgar1: 8 Apgar5: 9 1 SAB 05/2023 EXAM: GENERAL: alert, well appearing, and in no distress. VITALS: Ht 162.6 cm (5' 4) Wt 133 lb (60.3 kg) LMP 04/04/2024 Yes BMI 22.83 kg/m ABDOMEN: Soft, no masses or tenderness. Incision healing well. Well approximated without erythema, drainage or separation EXTREMITIES: All normal. No edema. PELVIC: deferred Assessment/Plan 1. Status post section routine follow-up (Primary) -Normal incision, healing well. Continue restrictions including lifting and exercise restrictions. Incision care reviewed. Can drive as long as not taking narcotics. -Contraception: discuss next visit -Pap smear: normal 2020 -No S/S PP depression. EPDS at next visit. Reviewed symptoms -RTO in 4 weeks for PP visit. Progress Notes - Hospital En counter - 12/25/2024 - GA:37w3d 12/25/2024 - 37w3d - Michelle Marino MD Progress Note: 12/25/2024 11:01 AM Subjective: Patient is feeling well. Pain is adequately controlled. She denies any fever, chills since delivery. She denies any flank pain or back pain--resolved after delivery. Ambulating in the room, voiding without difficulty. Passing flatus. Tolerating regular diet with success. Pumping as well. Objective: Vitals: 12/24/24 1720 12/24/24 1930 12/25/24 0406 12/25/24 0730 BP: 114/67 114/74 109/81 119/74 Pulse: 67 78 87 77 Resp: 18 16 16 18 Temp: 36.6 C (97.9 F) 36.9 C (98.4 F) 36.5 C (97.7 F) 36.4 C (97.5 F) TempSrc: Oral Oral Oral Oral SpO2: 96% 98% 96% 100% Weight: Height: No intake or output data in the 24 hours ending 12/25/24 1101 Exam: Constitutional: NAD Cardiovascular: Normal rate, regular rhythm and normal heart sounds. Pulmonary/Chest: Effort normal and breath sounds normal. No respiratory distress. Abdominal: Soft, non-tender, non-distended. Bowel sounds wnl. Fundus firm below umbilicus. Rash near umbilicus from binder Incision: healing well, dressing c/d/i without drainage or surrounding erythema Ext: No lower extremity edema, no erythema or palpable cords Recent Labs Lab Units 12/23/24 0548 12/22/24 0941 WBC K/cumm 12.67* 12.84* HEMOGLOBIN g/dL 9.7* 11.3* HEMATOCRIT % 28.5* 32.5* PLATELETS K/cumm 202 190 NEUTROS PCT % -- 86.9 LYMPHS PCT % -- 5.6 MONOS PCT % -- 6.2 EOS PCT % -- 0.5 No intake or output data in the 24 hours ending 12/25/24 1101 Assessment/Plan: S/p C/S, POD#3 Postop Pain controlled. Cortisone for rash Meeting postop milestones. Continue to increase ambulation. Hgb 11.3 -> 9.7, asymptomatic Baby girl doing well. complications: Maternal fever, suspected pyelo. placental path initial read with acute villitis and abscess. Now afebrile. S/p ancef x24 hours. Ucx without UTI. Placenta cultures no growth tachycardia intolerance to labor remote from delivery echogenic bowel-resolved h/o uterine septum resection Rh negative Dispo: d/c home today. Rx sent. Michelle Barclay MD 12/24/2024 - 37w3d - Daniela Zamora MD Progress Note: 12/24/2024 11:07 AM Subjective: Patient is feeling well. Pain is adequately controlled. She denies any fever, chills since delivery. She denies any flank pain or back pain. Ambulating in the room, voiding without difficulty. Passing flatus, but no bowel movement yet. Tolerating regular diet with success. Objective: Vitals: 12/23/24 1215 12/23/24 1935 12/24/24 0223 12/24/24 0910 BP: 113/70 119/79 113/72 123/80 Pulse: 70 91 80 75 Resp: 18 16 16 18 Temp: 36.6 C (97.8 F) 36.7 C (98 F) 36.3 C (97.4 F) TempSrc: Oral Oral SpO2: 97% 99% 97% 100% Weight: Height: Intake/Output Summary (Last 24 hours) at 12/24/2024 1107 Last data filed at 12/23/2024 1215 Gross per 24 hour Intake -- Output 800 ml Net -800 ml Exam: Constitutional: NAD Cardiovascular: Normal rate, regular rhythm and normal heart sounds. Pulmonary/Chest: Effort normal and breath sounds normal. No respiratory distress. Abdominal: Soft, non-tender, non-distended. Bowel sounds wnl. Fundus firm below umbilicus. Incision: healing well, dressing c/d/i without drainage or surrounding erythema Ext: No lower extremity edema, no erythema or palpable cords Recent Labs Lab Units 12/23/24 0548 12/22/24 0941 WBC K/cumm 12.67* 12.84* HEMOGLOBIN g/dL 9.7* 11.3* HEMATOCRIT % 28.5* 32.5* PLATELETS K/cumm 202 190 NEUTROS PCT % -- 86.9 LYMPHS PCT % -- 5.6 MONOS PCT % -- 6.2 EOS PCT % -- 0.5 Intake/Output Summary (Last 24 hours) at 12/24/2024 1107 Last data filed at 12/23/2024 1215 Gross per 24 hour Intake -- Output 800 ml Net -800 ml Assessment/Plan: S/p C/S, POD#2 Postop Pain controlled Meeting postop milestones. Continue to increase ambulation. Hgb 11.3 -> 9.7, asymptomatic Baby girl doing well. complications: Maternal fever, suspected pyelonephritis. Now afebrile. S/p ancef for suspected pyelo and preop abx. Ucx without UTI. Placenta cultures pending (no growth to date). tachycardia intolerance to labor remote from delivery echogenic bowel-resolved h/o uterine septum resection Rh negative Dispo: Routine postoperative care. Plan for discharge POD#3 or 4 pending culture results. Daniela Zamora MD 12/23/2024 - 37w3d - Dilma Huang MD PhD Progress Note: 12/23/2024 12:25 PM Subjective: Patient is feeling well. Pain adequately controlled. Not yet ambulating. Prince in place. Passing flatus. Denies BM. Tolerating po intake. Lochia appropriate. Denies chest pain/SOB, nausea/emesis, fever/chills. Breast feeding going well so far. Denies urinary symptoms. No localizing signs of infection. Afebrile. Objective: Vitals: 12/23/24 0119 12/23/24 0324 12/23/24 0540 12/23/24 0829 BP: 117/68 111/74 119/78 111/74 Pulse: 65 71 63 68 Resp: 17 16 17 18 Temp: 36.8 C (98.2 F) 36.9 C (98.4 F) 36.6 C (97.9 F) 36.5 C (97.7 F) TempSrc: Oral Oral Oral SpO2: 98% 98% 100% 100% Weight: Height: Intake/Output Summary (Last 24 hours) at 12/23/2024 1225 Last data filed at 12/23/2024 0540 Gross per 24 hour Intake 4301 ml Output 2625 ml Net 1676 ml Exam: Constitutional: NAD Cardiovascular: Normal rate, regular rhythm and normal heart sounds. Pulmonary/Chest: Effort normal and breath sounds normal. No respiratory distress. Abdominal: Soft, non-tender, non-distended. Bowel sounds wnl. Fundus firm below umbilicus. Incision: healing well, dressing c/d/i without drainage or surrounding erythema Ext: trace equal bilateral lower extremity edema, no erythema or palpable cords Recent Labs Lab Units 12/23/24 0548 12/22/24 0941 WBC K/cumm 12.67* 12.84* HEMOGLOBIN g/dL 9.7* 11.3* HEMATOCRIT % 28.5* 32.5* PLATELETS K/cumm 202 190 NEUTROS PCT % -- 86.9 LYMPHS PCT % -- 5.6 MONOS PCT % -- 6.2 EOS PCT % -- 0.5 Intake/Output Summary (Last 24 hours) at 12/23/2024 1225 Last data filed at 12/23/2024 0540 Gross per 24 hour Intake 4301 ml Output 2625 ml Net 1676 ml Assessment/Plan: S/p C/S, POD#1 Postop Pain controlled Meeting postop milestones. Remove Prince and ambulate today. Hgb 11.3 -> 9.7 Baby girl doing well. complications: Maternal fever, suspected pyelonephritis. Now afebrile. S/p ancef for suspected pyelo and preop abx. Ucx without UTI. OB cultures pending. Will follow up. tachycardia intolerance to labor remote from delivery echogenic bowel-resolved h/o uterine septum resection Rh negative Dispo: Routine postoperative care. Plan for discharge POD#4. Dilma Huang MD PhD 12/22/2024 - 37w3d - [facility], Michelle Mccarty MD OB attending note Patient admitted for IOL due to persistent tachycardia. She had a fever and right flank pain prior to admission. Leuks on UA. WBC 12. Aebrile since admission. She received two doses of cytotec. Pitocin was started at 0930. She was getting tylenol for back pain. FHT was persistently 160s and would increase when due for next dose of tylenol. She got one dose of ancef 2g IV for presumed pyelonephritis. Then at 1345 before due for next dose of tylenol maternal temp increased to 101.3. FHR with baseline in the 180s and minimal variability. Late decelerations noted with ctx even after stopping pitocin. SVE 2cm, intact. Discussed recommendation to proceed with primary for FITL remote from delivery in setting of fever of unknown origin and concern for reserve for remainder of labor and induction. I discussed with Chaz Patel the risks of section including but not limited to: bleeding, infection, damage to vital organs(bladder, bowel, etc), need for blood transfusion or blood products (which she did accept), DVT, PE, , and possible hysterectomy if necessary for lifesaving purposes. Chza Patel agreed to procedure. Ancef and azithromycin prior to procedure Michelle Barclay MD 12/22/2024 - 37w3d - Coy Mack i, MD OB Hospitalist Progress Note Chaz Patel 12/22/2024 11:37 AM Pt reports right mid back pain despite tylenol. No fever documented while in hospital but pt reported temp of 102F at home. She also had chills and nausea. Pt denies h/o frequent UTIs, pyelo, or renal stones. Notably, tachycardia has been recurrently observed with baseline in 160s - 170s with reactivity. FHR baseline decreases to 140s after pt is treated with Tylenol. WBC is still increasing from 12.0 on admission to 12.8 this morning with a left shift, neutrophils are 87% this am. Urine culture result is pending but sample was sent just last night. Clinically, the picture is most consistent with pyelonephritis. D/W Jaclyn. Will treat empirically with IV Ancef, 2 gm q 8h. Derrick Mack MD 12/22/2024 - 37obie - Michelle Marino MD OB Labor Progress Note Chaz Patel 12/22/2024 8:55 AM Subjective: Chaz Patel is a 24 y.o. female at 37w3d weeks gestation admitted for IOL for persistent flank pain and tachycardia Patient reports back pain still on right side. Feeling some cramping. Noting uncomfortable. Tylenol helps back pain Objective: Temp: [36.1 C (96.9 F)-36.1 C (97 F)] 36.1 C (96.9 F) Pulse: [80-100] 80 BP: (102-124)/(64-75) 124/75 Resp: [16] 16 SpO2: [98 %-99 %] 98 % Physical Exam: Cervical exam: deferred Heart Tones: Category I, baseline 155-160 [place]: ctx q 5-7 mins Assessment: IUP 37w3d weeks gestation here for IOL Plan: - s/p 2 doses of buccal cytotec. Recheck at 0930. Likely oxytocin per protocol after that - status reassuring. Intermittent tachycardia that improves. Cat I -Right flank/back pain--continue tylenol, ice packs - Expect Michelle Barclay MD Progress Notes - Office Visi t - 12/21/2024 - GA:37w2d 12/21/2024 - 37w - Michelle Marino MD at 37.2wks here for [facility] visit. Had severe right sided back pain on Friday. She had a fever to 102. [place] a lot of jany gonzalez and pressure. Fever resolved. Back pain still present. Was able to sleep through it last night. No blood in urine or dysuria. 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 Bleeding episode 06/2025. MFM anatomy US f/u and labs normal. CF testing negative. Continue monthly growth US--less prominent EB-->resolved 10/19-->still not noted 6 -Fever/back pain on Friday. Back pain persistent. UA small leuks otherwise negative. Pain around right kidney. ?kidney stone. Continue tylenol, ice pack -NST showing persistent tachycardia in the 160s. Recommend extended monitoring in triage. Progress Notes - Office Visi t - 12/16/2024 - GA:36w4d 12/16/2024 - 36w4d - Kimi Billingsley DO Images from the original note were not included. Maternal Medicine Followup Office Visit Kimi Billingsley DO MSCI FACOG [facility]-Medical Group MFM at [facility] Requesting Provider: Michelle Barclay MD [id number] [facility] [place] [address] [place] [address] Chief complaint: MFM Followup S: Chaz Patel is a 24 y.o. female @ 36w4d she is well and getting excited for baby. NO complaints or concerns. She reports they are planning a risk reducing IOL at 39 weeks. O: Physical Exam: BP 94/60 (BP Location: Right arm, Patient Position: Sitting) Ht 162.6 cm (5' 4.02) Wt 152 lb 14.4 oz (69.4 kg) LMP 04/04/2024 BMI 26.23 kg/m Constitutional: Alert, cooperative, no distress, appears stated age. ENT mouth: lips, mucosa and tongue normal, normal dentition. Cardiovascular: heart is regular in rate and rhythm. Respiratory: respirations are unlabored Skin: texture, color, turgor normal, no rashes or lesions noted Neurologic: Normal gait, normal speech tone, pattern Psychiatric: Mood and demeanor are appropriate. Lymphatic: lower extremities without significant edema bilaterally Ultrasound: Please see the US report under a separate cover for complete description of the findings. Impression/Recommendations: 1. 24 [address]. @ [address] Dr[address] Barclay is primary OBGYN cfDNA low risk 2. Echogenic bowel -resolved- remains resolved. Hx of bleeding in early , relatively light by description/no history of BRAXTON. 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 Billingsley, see consult note Bowel continues to appear normal on today's ultrasound. Recommendations: S/p MFM comanagment with continued resolution of Echogenic bowel now at 36w4d Mediterranean diet with at least 3 servings of low mercury fish per week, target antioxidant rich fruits and vegetables, limit carbohydrates to complex carbs ideally fruits/vegetables, nuts and seeds. In her case given aversion to fish, Fish oil supplement daily is recommended and she should continue beyond as well. 90-100g protein daily Timing of Delivery: Planning risk reducing IOL at 39 weeks, this is an appropriate approach at this time. Clinical correlation is recommended as the evolves should the patient develop indications for earlier delivery. Route of delivery: At this time CS can be reserved for the usual obstetric indications. No further followup is scheduled at this time. Thank you for the opportunity to participate in the care of Chaz Patel. If you have any questions or concerns please do not hesitate to contact reach out. Kimi Billingsley DO, MSCI, FACOG Director of [facility] Program Development [facility]-Medical Group [facility] at [facility] Office: [phone] My total encounter time on 12/16/2024 was 28 minutes which was spent in the activities documented in the note. This includes time spent prior to the visit and after the visit in direct care of the patient. This time does not include time spent in any separately reportable services. Progress Notes - Office Visi t - 12/14/2024 - GA:36w2d 12/14/2024 - 36w2d - Michelle Marino MD at 36.2wks here for [facility] visit. Doing well. Feeling movement. Some cramping. 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 Bleeding episode 06/2025. [facility] anatomy US f/u and labs normal. CF testing negative. Continue monthly growth US--less prominent EB-->resolved 10/19-->still not noted 11/16 -US with MFM this week -GBS sent -reviewed IOL. Considering around EDC. Progress Notes - Office Visi t - 11/30/2024 - GA:34w2d 11/30/2024 - 34w2d - Michelle Marino MD at 34.2wks here for [facility] visit. Doing well. Feeling movement. Some left sided pain but in the spot she kicks a lot. No ctx. 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 Bleeding episode 06/2025. MFM anatomy US f/u and labs normal. CF testing negative. Continue monthly growth US--less prominent EB-->resolved 10/19-->still not noted 11/16 -GBS/SVE in 2 weeks -36wk US with MFM after next visit Progress Notes - Office Visi t - 11/16/2024 - GA:32w2d 11/16/2024 - 32w2d - Marsha Garcia NP Images from the original note were not included. Maternal Medicine Followup Office Visit [facility]-Medical Group MFM at [facility] Requesting Provider: Michelle Barclay MD [id number] [address] Chief Complaint: Follow-up S: Chaz Patel is a 24 y.o. female @ 32w2d gestation who presents today for follow-up accompanied by her . She is feeling tired with some back and hip pain, but it otherwise well. Baby is active and the movements have become more rolls and stretches and less large kicks and punches. She thinks she may have some occasional [place]-Gonzalez contractions because she will sometimes notice abdominal tightness, but it isn't painful or consistent. She is not having any vaginal bleeding or leakage of fluid. O: Physical Exam: BP 112/68 (BP Location: Left arm, Patient Position: Sitting) Ht 162.6 cm (5' 4.02) Wt 150 lb 6.4 oz (68.2 kg) LMP 04/04/2024 BMI 25.80 kg/m Constitutional: Alert, cooperative, no distress. Cardiovascular: Acyanotic. Respiratory: Respirations are unlabored. GI: Gravid abdomen is soft, non-tender. Skin: Texture, color normal, no rashes or lesions noted. Neurologic: Normal gait, normal speech. Lymphatic: Lower extremities without significant edema bilaterally. Ultrasound: SIUP @ 32w 1d with positive cardiac activity. position is Vertex interval growth has been appropriate. AGA growth is noted with EFW at the 46%. Bowel remains normal in appearance. Normal fluid. The placenta is anterior, there are no placental abnormalities identified. BPP 02/18 Please see the US report for complete description of findings. NST: Reactive A/P: 24 y.o. @ 32w[address]d Dr. Barclay is primary OBGYN cfDNA low risk Counseling: We discussed common discomforts of in the third trimester and supportive measures. Reviewed importance of monitoring movements. 2. Echogenic bowel -resolved Hx of bleeding in early , relatively light by description/no history of BRAXTON. 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 Billingsley, see consult note Bowel appears normal on today's ultrasound. Recommendations/Plan per Dr. Billingsley: M Comanagement with monthly US/Visits Q 4 week growth and surveillance of bowel Mediterranean diet with at least 3 servings of low mercury fish per week, target antioxidant rich fruits and vegetables, limit carbohydrates to complex carbs ideally fruits/vegetables, nuts and seeds. In her case given aversion to fish, Fish oil supplement daily is recommended and she should continue beyond as well. 90-100g protein daily Timing of Delivery per Dr. Billingsley: At this time there is no indication for early term delivery. Route of delivery: At this time CS can be reserved for the usual obstetric indications. Follow-up has been scheduled in 4 weeks. Marsha Garcia NP My total encounter time on 11/16/2024 was 15 minutes which was spent in the activities documented in the note. This includes time spent prior to the visit and after the visit in direct care of the patient. This time does not include time spent in any separately reportable services. Cosigned by Kimi Billingsley DO at 11/16/2024 10:27 AM CDT Progress Notes - Office Visi t - 11/16/2024 - GA:32w2d 11/16/2024 - 32w2d - Michelle Marino MD at 32.2wks here for LUCRETIA visit. Doing well. Feeling movement. More tired. Already had shower. Mostly ready at home. 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 Bleeding episode 06/2025. MFM anatomy US f/u and labs normal. CF testing negative. Continue monthly growth US--less prominent EB-->resolved 10/19-->still not noted 11/16 -EB- resolved on US x2. Last US in 4 weeks. -reviewed GBS at 36wk visit Progress Notes - Office Visi t - 11/02/2024 - GA:30w2d 11/02/2024 - 30w2d - Michelle Marino MD at 30.2wks here for LUCRETIA visit. Doing well. Feeling movement. A lot of pressure and jany gonzalez. Nothing regular. 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 Bleeding episode 06/2025. MFM anatomy US f/u and labs normal. CF testing negative. Continue monthly growth US--less prominent EB-->resolved 10/19 -US with MFM next week -reviewed IOL briefly Progress Notes - Office Visi t - 10/19/2024 - GA:28w2d 10/19/2024 - 28w2d - Marsha Garcia NP Images from the original note were not included. Maternal Medicine Followup Office Visit [facility]-Medical Group MF at [facility] Requesting Provider: Michelle Barclay MD [id number] [facility] [place] [address] [place] [address] Chief Complaint: Follow-up S: Chaz Patel is a 24 y.o. female @ 28w2d gestation who presents today for follow-up accompanied by her mother. She is feeling well with good movement and no vaginal bleeding or contractions. She has significantly increased her daily protein intake since her last MFM visit. She has at least 1-2 protein shakes daily and has added more cheese, meat and eggs into her diet, which is causing her to feel very full everyday. She does have intermittent constipation and has also had harder stools when she does have bowel movements. She has taken Miralax in the past and that worked well for her. She is trying to stay well hydrated. O: Physical Exam: BP 100/58 Wt 146 lb (66.2 kg) LMP 04/04/2024 BMI 25.06 kg/m Constitutional: Alert, cooperative, no distress. Cardiovascular: Acyanotic. Respiratory: Respirations are unlabored. GI: Gravid abdomen, non-tender. Skin: Texture, color normal, no rashes or lesions noted. Neurologic: Normal gait, normal speech. Lymphatic: Lower extremities without significant edema bilaterally. Ultrasound: SIUP @ 28w 1d with positive cardiac activity. position is Vertex Interval growth has been appropriate. AGA growth is noted with EFW at the 28%. The bowel is normal in appearance today without increased echogenicity. Normal fluid. The placenta is anterior, there are no placental abnormalities identified. Please see the US report for complete description of findings. A/P: 24 y.o. @ 28w[address]d Dr. Barclay is primary OBGYN cfDNA low risk Counseling: We discussed expected discomforts of in the third trimester. Reviewed supportive measures for constipation including Miralax and Colace stool softeners. Encouraged continued PO hydration with at least 100oz of water daily. Reviewed that she should not consume more than 90-100g of protein daily, and can reduce her protein supplementation to just one protein shake and one protein- rich snack in addition to her normal diet which contains 1-2 servings of protein with meals to reduce discomfort. 2. Echogenic bowel Hx of bleeding in early , relatively light by description/no history of BRAXTON. 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 Billingsley, see last visit's note. Recommendations/Plan per Dr. Billingsley: MFM Comanagement with monthly US/Visits Q 4 week growth and surveillance of bowel Mediterranean diet with at least 3 servings of low mercury fish per week, target antioxidant rich fruits and vegetables, limit carbohydrates to complex carbs ideally fruits/vegetables, nuts and seeds. In her case given aversion to fish, Fish oil supplement daily is recommended and she should continue beyond as well. 90-100g protein daily Timing of Delivery per Dr. Billingsley: At this time there is no indication for early term delivery. Route of delivery: At this time CS can be reserved for the usual obstetric indications. Followup is scheduled in 4 week(s). Marsha Garcia NP My total encounter time on 10/19/2024 was 20 minutes which was spent in the activities documented in the note. This includes time spent prior to the visit and after the visit in direct care of the patient. This time does not include time spent in any separately reportable services. Progress Notes - Office Visi t - 10/19/2024 - GA:28w2d 10/19/2024 - 28w2d - Tracey olvera, Michelle Mccarty MD at 28.2wks here for LUCRETIA visit. Doing well. Feeling movement. No complaints. 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 Bleeding episode 06/2025. MFM anatomy US f/u and labs normal. CF testing negative. Continue monthly growth US--less prominent EB-->resolved 10/19 -EB resolved on US today. AGA growth -GCT normal -Tdap and rhogam given today -reviewed classes Progress Notes - Office Visi t - 10/05/2024 - GA:26w2d 10/05/2024 - - Tracey erMichelle MD at 26.2wks here for LUCRETIA visit. Doing well. Feeling movement. No complaints complicated by: 1) h/o uterine septum resection/bicornuate uterus: growths q4mo 2) migraines: tylenol 3) Rh neg 4) SAB x1: s/p progesterone 5) history of T21 on both sides (distant): NIPT low risk 6) Echogenic bowel-on anatomy US. Bleeding episode 06/2025. MFM anatomy US f/u and labs normal. CF testing negative. Continue monthly growth US--less prominent EB -GCT today -Tdap next visit -Continue US and f/u with MFM for echogenic bowel. Progress Notes - Office Visi t - 09/23/2024 - GA:24w4d 09/23/2024 - - Kimi Billingsley DO Images from the original note were not included. Maternal Medicine Consultation Kimi Billingsley DO, MSCI, FACOG [facility]-Medical Group MFM at [facility] Consultation requested by: Michelle Barclay MD [id number] [facility] [place] [address] [place] [address] Chief Complaint: Chief Complaint Patient presents with Initial Consult HPI: Chaz Patel is a 24 y.o. female @ 24w4d for MFM consultation at the request of Dr. Barclay regarding echogenic bowel. This was initially of concern on her anatomic survey in Dr. Barclay's office around 20 weeks. The patient then underwent MFM Detailed anatomic survey and there was a small area of small bowel that did appear bright, no other findings. The patient reported some vaginal bleeding early in and had low risk cfDNA. She then underwent CF carrier testing which was negative, and maternal serum screening for infectious etiologies for echogenic bowel which were all negative. Of note her VZV IgG was negative. She is back today for repeat US and today we see a small area of bowel that does appear prominent/echogenic although overall less prominent that her previous US. There are no signs of bowel dilation or other concerns that would be more suggestive of a structural etiology. She reports her bleeding early started as pink spotting, then brown for several days. She did go in to the hospital at one point for further evaluation because this was persistent and the brown spotting ended up going back to pink and then resolved. She denies ever being told about any concern for bleeding under the placenta seen on US. She reports no additional bleeding. She does not report any rashes or viral illnesses since her LMP. She does not like fish. Pertinent outside records were reviewed for history, imaging and laboratory information. Problem list was reviewed relative to indication or consultative question. ROS: Pertinent asked and negative. OB History Para Term AB Living 2 0 0 0 1 0 SAB IAB Ectopic Multiple Live Births 1 0 0 0 0 # Outcome Date GA Lbr Glenn/2nd Weight Sex Type Anes PTL Lv 2 Current 1 SAB 05/2023 Past Medical History: Diagnosis Date Acne Bicornuate uterus Headache Irregular periods Past Surgical History: Procedure Laterality Date BREAST BIOPSY Left 08/2019 benign. FINGER SURGERY 2011 HYSTEROSCOPY 12/29/2020 Uterine Septum Resection Family History Problem Relation Age of Onset Glaucoma Maternal Grandmother Hypertension Father No Known Problems Mother Breast cancer Father's Sister 31 twice Infertile Father's Sister Cancer Father's Sister Endometriosis Father's Sister Ovarian cancer Neg Hx Anesthesia problems Neg Hx Colon cancer Neg Hx Deep vein thrombosis Neg Hx Uterine cancer Neg Hx No Known Allergies Current Outpatient Medications on File Prior to Visit Medication Sig Dispense Refill vit,[id number] (PRENATABS RX) tablet tablet Take 1 tablet by mouth daily 30 tablet 11 nystatin cream (Patient not taking: Reported on 07/13/2024) Xiidra 5 % dropperette 0.1 each (1 drop total) 2 (two) times a day (Patient not taking: Reported on 07/13/2024) [DISCONTINUED] progesterone (PROMETRIUM) 200 mg capsule Take 1 capsule (200 mg total) by mouth nightly (Patient not taking: Reported on 09/07/2024) 30 capsule 3 No current facility-administered medications on file prior to visit. Social History Tobacco Use Smoking status: Never Smokeless tobacco: Never Substance and Sexual Activity Drug use: Never Sexual activity: Yes Partners: Male Alcohol Use: Not At Risk (09/23/2024) AUDIT-C Frequency of Alcohol Consumption: Never Average Number of Drinks: Patient does not drink Frequency of Binge Drinking: Never Physical Exam: BP 108/66 (BP Location: Left arm, Patient Position: Sitting) Ht 162.6 cm (5' 4) Wt 140 lb (63.5 kg) LMP 04/04/2024 BMI 24.03 kg/m Constitutional: Alert, cooperative, no distress, appears stated age. ENT mouth: lips, mucosa and tongue normal, normal dentition. Cardiovascular: heart is regular. Respiratory: respirations are unlabored Skin: texture, color, turgor normal, no rashes or lesions noted Neurologic: Normal gait, normal speech tone, pattern Psychiatric: Mood and demeanor are appropriate. Ultrasound: Please see the ultrasound report under a separate cover for complete description of the findings. Pertinent recent labs: Office Visit on 09/23/2024 Component Date Value Glucose, ur, POC 09/23/2024 Negative Bilirubin, ur, POC 09/23/2024 Negative Ketones, ur, POC 09/23/2024 Negative Specific [place], POC 09/23/2024 1.015 Blood, ur, POC 09/23/2024 Negative pH, ur, POC 09/23/2024 8.5 (A) Protein, ur, POC 09/23/2024 Negative Urobilinogen, urine, POC 09/23/2024 0.2 Nitrite, ur, POC 09/23/2024 Negative Leukocytes, ur, POC 09/23/2024 Moderate (A) Lot Number 09/23/2024 [id number] Hospital Outpatient Visit on 09/23/2024 Component Date Value Fetus# 09/23/2024 Fetus1 Estimated Weight 09/23/2024 638 Placenta Details 09/23/2024 anterior Presentation 09/23/2024 Breech Lab on 09/07/2024 Component Date Value Toxoplasma IgG 09/07/2024 Negative Toxoplasma IgM 09/07/2024 Negative CMV IgG 09/07/2024 Negative CMV IgM 09/07/2024 Negative Office Visit on 09/07/2024 Component Date Value Glucose, ur, POC 09/07/2024 Negative Protein, ur, POC 09/07/2024 Trace (A) Ketones, ur, POC 09/07/2024 Trace (A) Lot Number 09/07/2024 [id number] Hospital Outpatient Visit on 08/23/2024 Component Date Value Fetus# 08/23/2024 Fetus1 Estimated Weight 08/23/2024 300 Placenta Details 08/23/2024 anterior Presentation 08/23/2024 Breech Office Visit on 08/10/2024 Component Date Value Glucose, ur, POC 08/10/2024 Negative Protein, ur, POC 08/10/2024 Negative Ketones, ur, POC 08/10/2024 Negative Lot Number 08/10/2024 [id number] Admission on 06/29/2024, Discharged on 06/30/2024 Component Date Value WBC 06/29/2024 7.0 Hgb 06/29/2024 12.9 Hct 06/29/2024 36.9 Plt 06/29/2024 243 MPV 06/29/2024 11.0 RBC 06/29/2024 4.20 MCV 06/29/2024 87.9 MCH 06/29/2024 30.7 MCHC 06/29/2024 35.0 RDW CV 06/29/2024 12.1 RDW SD 06/29/2024 38.7 NRBC abs 06/29/2024 0.00 hCG, quant 06/29/2024 74,495.0 (H) ABO Rh 06/29/2024 B Negative Neutrophil abs 06/29/2024 4.6 Imm gran abs 06/29/2024 0.0 Lymphocyte abs 06/29/2024 1.7 Monocyte abs 06/29/2024 0.6 Eosinophil abs 06/29/2024 0.1 Basophil abs 06/29/2024 0.0 Neutrophil pct 06/29/2024 66.1 Imm gran pct 06/29/2024 0.3 Lymphocyte pct 06/29/2024 23.6 Monocyte pct 06/29/2024 8.0 Eosinophil pct 06/29/2024 1.6 Basophil pct 06/29/2024 0.4 Consultative Impressions and Recommendations: 1.24 [address]. @ [address] Dr[address] Barclay is primary OBGYN cfDNA low risk 2. Echogenic bowel Hx of bleeding in early , relatively light by description/no history of BRAXTON. CF carrier negative CMV, toxo neg, rubella immune, Rubella IgG neg, VZV IgG nonreactive no symptoms c/w primary VZV in Counseling: We discussed various etiologies for echogenic bowel and given her currently negative workup it would seem that the residual echogenic bowel and at this point the most likely viral causes and CF have been excluded. We discussed the possibility this could be from intra-amniotic bleeding although her bleeding was very early and light, there is always potential for bleeding we do not see. In addition, there could be a structural cause that we are not seeing more clearly at this time. We also discussed the possibility this could be echogenic bowel of an entirely normal fetus with no cause but just imaging findings. We discussed out of caution at this point the most appropriate course is to follow with US to ensure we do not pickup on any evolving US findings that could be suggestive of a structural concern. We reviewed that if we do see evolving findings concerning for structural concern with bowel then we will refer to the [facility] care center. We discussed rarely we will see bowel or intraabdominal findings that evolve and are likely to require quick surgical intervention or at least evaluation by pediatric surgery and if we were to encounter this then it would be necessary for her transition her delivery plan for delivery at [facility] although I think the likelihood overall of requiring this is very low. In general based on today's findings I am overall reassured and I did share this with the couple but out of caution because there remains potential for structural concern we will plan to follow about monthly. Chaz's Rebecca had questions about growth. We discussed 20th%Ile is completely normal and the growth last time was 24th%Ile and therefore this kiddo seems to be on a stable trajectory. However, to be comprehensive we did discuss general dietary recommendations for and given the growth is right at the 20th%ile she is encouraged to try for a total daily protein goal of 90-100g. Chaz shared that she does not like fish and therefore I have recommended a fish oil supplement. Recommendations/Plan: [facility] Comanagement with monthly US/Visits Q 4 week growth and surveillance of bowel Mediterranean diet with at least 3 servings of low mercury fish per week, target antioxidant rich fruits and vegetables, limit carbohydrates to complex carbs ideally fruits/vegetables, nuts and seeds. In her case given aversion to fish, Fish oil supplement daily is recommended and she should continue beyond as well. 90-100g protein daily Timing of Delivery: At this time there is no indication for early term delivery. Route of delivery: At this time CS can be reserved for the usual obstetric indications. Followup is scheduled in 4 week(s). Thank you for the opportunity to participate in the care of Chaz Patel. If you have any questions or concerns please do not hesitate to reach out. Sincerely, Kimi Billingsley DO, MSCI, FACOG Director of [facility] Program Development [facility]-Medical Group [facility] at [facility] Office: [phone] My total encounter time on 09/23/2024 was 63 minutes which was spent in the activities documented in the note. This includes time spent prior to the visit and after the visit in direct care of the patient. This time does not include time spent in any separately reportable services. Progress Notes - Office Visi t - 09/07/2024 - GA:22w2d 09/07/2024 - w2d - Kacey France NP Routine at 22.2 weeks gestation. She is here with a family member today. Feeling good fm. Denies any cramping, bleeding or lof. Taking her vitamin. Scheduled for a growth ultrasound with [facility] 09/23. Order was placed by Dr. Barclay for CMV, toxoplasma antibodies. We discussed having this done today. Discussed gtt/cbc/rpr/antibody screen at her next visit. She will then have tdap and Rhogam at 28 weeks. Discussed hydration. No concerns today. All questions answered. Follow up in 4 weeks. Martina France NP complicated by: 1) h/o uterine septum resection/bicornuate uterus: growths q4mo 2) migraines: tylenol 3) Rh neg 4) SAB x1: s/p progesterone 5) history of T21 on both sides (distant): NIPT low risk 6) Echogenic bowel-on anatomy US. Bleeding episode 06/2025. M anatomy US f/u and labs ordered. CF testing negative Cosigned by Michelle Barclay MD at 09/08/2024 3:55 PM OIL OPERATOR OPERATOR OPERATOR Progress Notes - Office Visi t - 08/10/2024 - GA:18w2d 08/10/2024 - 18w2d - Michelle Marino MD Return OB Note at 18w2d complicated by: 1) h/o uterine septum resection/bicornuate uterus: growths q4mo 2) migraines: tylenol 3) Rh neg 4) SAB x1: s/p progesterone 5) history of T21 on both sides (distant): NIPT low risk 6) Echogenic bowel-on anatomy US. Bleeding episode 06/2025. MFM anatomy US f/u and labs ordered. CF [...] Patient Position: Sitting) Ht 162.6 cm (5' 4) Wt 133 lb (60.3 kg) LMP 04/04/2024 [...] utilize AI technology in generating this note. OPERATOR Progress Notes - Office Visi t - [...] -NIPT low risk. Anatomy US next visit OPERATOR Progress Notes - Office Visi t - [...] h/o resection -Continue progesterone until 12 weeks OPERATOR OPERATOR Progress Notes - Office Visi t - 05/19/2024 - GA:6w3d 05/19/2024 - 6w3d - Mago Starr PA Images from the original note were not included. Patient ID: Chaz Patel is a 24 y.o. female Subjective Chief [...] Cell Disease or Trait () [-] Thalasemia ([place] Citizen, Vietnamese, Medit or ; MCV <80) [-] Trent Sachs Disease (Anabaptism, Cajun, [place]) [X] Down Syndrome: patient's mothers aunt, FOB cousin (mom's side) [-] Neural Tube Defects (Meningomyelocele, Spina Bifida or Anencephaly) [-] Other Developmental Delay [-] Cystic Fibrosis [-] [place]'s Chorea [-] Muscular Dystrophy [-] Hemophilia [-] Other Heritable condition ONCOLOGY CONSULTANT Her LMP was Patient's last menstrual period [...] as a child Meds Current Outpatient Medications: vit,tqpl83-iojj-wzjif (PRENATABS RX) tablet tablet, Take 1 tablet by mouth daily, Disp: 30 tablet, Rfl: 11 progesterone (PROMETRIUM) 200 mg capsule, Take 1 capsule (200 mg total) by mouth nightly, Disp: 30 capsule, Rfl: 3 Allergies Patient has no known allergies. Objective BP 104/70 (BP Location: Left arm, Patient Position: Sitting) Ht 162.6 cm (5' 4) Wt 130 lb (59 kg) LMP 04/04/2024 [...] Michelle Barclay MD at 05/19/2024 11:57 AM OIL OPERATOR OPERATOR OPERATOR Last Filed Vital Signs Vital Sign Reading [...] 01/04/2025 3:50 PM CDT Plan of Treatment Health Maintenance Due Date Last Done Comments Regular Well Visit/Exam 18-64 05/02/2024 05/02/2023, 04/02/2022, 02/05/2021, Additional history exists Cervical Cancer Screening 05/05/2024 02/05/2021 Influenza Vaccine (#1) 2025 04/30/2017 Chlamydia and Gonorrhea (GC/CT) Screening 05/19/2025 05/19/2024, 02/05/2021 Depression Screening 12/23/2025 12/23/2024 DTaP/Tdap/Td Vaccine (8 - Td or Tdap) 10/19/2034 10/19/2024, 01/08/2011, 02/11/2005, Additional history exists Hepatitis B Screening Completed 01/02/2001 , 2000, 2000 Pneumococcal vaccine <65 Aged Out 001, 2000, 2000, Additional history exists No longer eligible based on patient's age to complete this topic Varicella Vaccines Completed 01/08/2011, 05/04/2001 HPV Vaccines Completed 03/02/2015, 08/2013, 01/08/2011 Hepatitis C Screening Completed 05/19/2024 Medical Devices Implanted Type Area Self Propelled Hot Mix Roller Operator Device Identifier Shelf Expiration Date Model / Serial / Lot [employer]rier Adhesion Seprafilm 5x6in Translucent [facility] [employer] [id number] - [id number] Implanted:Qty: 1 on 12/22/2024 by Michelle Barclay MD at [facility] N/A: Uterus [employer] [facility] [id number] 08/15/2026 [id number] / / [id number] Procedures Procedure Name Priority Date/Time Associated Diagnosis [...] GRAM STAIN STAT 12/22/2024 4:03 PM CDT LA AN PROCEDURE PLACEHOLDER Routine 12/22/2024 3:50 PM [...] HEPATITIS C ANTIBODY Routine 05/19/2024 10:09 AM OIL OPERATOR Screening for venereal disease N. GONORRHOEAE/C. TRACHOMATIS AMPLIFICATION Routine 05/19/2024 10:03 AM OIL OPERATOR Screening for venereal disease PAP WITH REFLEX TO HIGH RISK HPV Routine 02/05/2021 10:36 AM CDT Well female exam with routine gynecological exam from Last 3 Months or Most Recently Relevant to Health Maintenance Results * (ABNORMAL) CBC without differential (12/23/2024 5:48 AM CDT) WBC 12.67(H) 3.80 - 9.90 K/cumm Hgb 9.7(L) 11.9 - 15.5 g/dL [facility] Hct 28.5(L) 35.6 - 45.5 % [facility] Plt 202 150 - 400 K/cumm [facility] MPV 11.5 9.1 - 12.3 fL [facility] RBC 3.22(L) 3.90 - 5.20 M/cumm [facility] MCV 88.5 81.3 - 96.4 fL [facility] MCH 30.1 27.1 - 33.3 pg [facility] MCHC 34.0 32.3 - 35.7 g/dL [facility] RDW CV 11.9 11.1 - 14.9 % [facility] RDW SD 38.1 35.7 - 48.1 fL [facility] NRBC abs 0.00 0.00 - 0.01 K/cumm [facility] Blood 12/23/2024 5:48 AM CDT 12/23/2024 5:58 AM CDT Michelle Barclay MD LAB BLOOD ORDERABLES F inal Result Performing Organization Address [facility] Co de Phone Number [facility] [address] Department [employer] [place] [address] * Rh Immune Globulin Eval (12/22/2024 7:52 PM CDT) RhIg Eligible Yes, eligible RhIg Administration 1 vial of Rh Immune Globulin (300 mcg dose) [facility] Blood 12/22/2024 7:52 PM CDT 12/22/2024 8:28 PM CDT Narrative [facility] - 12/22/2024 8:50 PM CDT Number of weeks ?->20 weeks or greater antibody screen result:->Negative Rhogam given?->Given Date Given?->10/19/24 Number of vials requested:->1 Michelle Barclay MD LAB BLOOD BANK TEST OR DERABLES Final Result Performing Organization Address [facility] Co de Phone Number [facility] [address] Department [employer] [place] [address] * Bleed Screen (12/22/2024 7:52 PM CDT) Bleed Screen Negative Blood 12/22/2024 7:52 PM CDT 12/22/2024 8:28 PM CDT Michelle Barclay MD LAB BLOOD BANK TEST OR DERABLES Final Result Performing Organization Address [facility] Co de Phone Number [facility] [address] Department [place] [address] * Surgical pathology (12/22/2024 4:57 PM CDT) Tissue (Placenta) 12/22/2024 4:57 PM CDT 12/23/2024 7:14 AM CDT Narrative [facility]OLOG[facility] - 12/27/2024 8:01 AM CDT [address] [address] Tele: Mary Bravo MD - Pvc Loader Note to Patients: This report may contain [...] PATHOLOGY REPORT Patient Name: CHAZ PATEL Address: [address] [place] [address] Gender: F : 2000 (Age: 24) Service: Obstetrics Location: [facility], Hospital #: [id number] Patient Type: [facility] [place] [place] Taken: 12/22/2024 Received 12/23/2024 Reported: 12/27/2024 Physician(s): Alejandro Stanford M.D. DIAGNOSIS: Placenta and umbilical cord, section: - 384 g placenta (less than tenth percentile for gestational age) - Three-vessel umbilical cord with no histopathologic abnormality - membranes with no histopathologic abnormality - Acute villitis and intervillositis with abscess formation - Mature villous morphology [facility]/12/27/2024 08:01 Examining Pathologist: Peyman Lopez M.D. Report Reviewed and Electronically Signed By Peyman Lopez M.D. SPECIMEN TYPE: A: PLACENTA CLINICAL IMPRESSION AND HISTORY: Status post primary section,NRFS, fever of unknown origin. 37 3/7 weeks. section GROSS DESCRIPTION: Received in formalin labeled with CHAZ PATEL and placenta is a 384 gram [...] less than 5% of the maternal surface.. Harness Mender sections are submitted as follows: A1 - membranes and umbilical cord, A2 - surface, A3 - maternal surface, A4 - Maternal surface including three largest lesions [facility]/12/23/2024 09:36 [facility] MICROSCOPIC DESCRIPTION: Microscopic examination shows multiple foci of acute villitis and intervillous sinus with abscess formation. A gram stain is negative. An immunohistochemical stain for CMV is also negative. Preliminary results were discussed with Dr. Daniela Zamora at 3:18 pm on 12/24/2024. Clerical Data Follows A; [id number], [id number], [id number] REPORT IMAGES AND/OR SCANNED DOCUMENTS ONLY VIEWABLE IN PDF FORMAT The immunohistochemical test(s) cited in this report, if any, was developed and its performance characteristics determined by [facility] Pathology Department. It has not been cleared or approved by the U.S. Food and Drug Administration. The FDA has determined that such clearance or approval is not necessary. This test is used for clinical purposes. It should not be regarded as investigational or for research. [facility] Laboratory is certified under the Clinical [...] part or completely in the following laboratories: [facility], [address] [facility], [place] [address] [facility], [address] [place] [id number]. Michelle Barclay MD LAB PATHOLOGY ORDERABL ES Final Result Performing Organization Address City/[facility]/ZIP Co de Phone Number PATHOLOGY [facility] Laboratory Receiving [address] [place] [address] * Aerobic and anaerobic culture and gram stain Placenta Uterus (12/22/2024 4:06 PM CDT) Direct Specimen Exam Stain: Abundant polymorphonuclear leukocytes seen. No organisms seen. Report Final Report: No growth [facility] Placenta (Uterus) 12/22/2024 4:06 PM CDT 12/22/2024 4:20 PM CDT Michelle Barclay MD LAB MICROBIOLOGY - GEN ERAL ORDERABLES Final Result Performing Organization Address [facility] Co de Phone Number [facility] [address] Department [place] [address] * Aerobic and anaerobic culture and gram stain Placenta (12/22/2024 4:03 PM CDT) Direct Specimen Exam Stain: Rare polymorphonuclear leukocytes seen. No organisms seen. Report Final Report: No growth [facility] Placenta () 12/22/2024 4:03 PM CDT 12/22/2024 4:19 PM CDT Michelle Barclay MD LAB MICROBIOLOGY - GEN ERAL ORDERABLES Final Result Performing Organization Address City/[facility]/ZIP Co de Phone Number [facility] [address] Department [place] [address] * LA AN PROCEDURE PLACEHOLDER (12/22/2024 3:50 PM CDT) Glendy Duarte DO - 12/22/2024 3:50 PM CDT Glendy Muhammad [...] Units (12/22/2024 1:51 PM CDT) Product code [id number] Unit Number [id number] 6-0 [facility] Product Blood Type [facility] Dispense Status RETURNED [facility] Product code [id number] [facility] Unit Number [id number] 3-2 [facility] Product Blood Type [facility] Dispense Status RETURNED [facility] Blood 12/22/2024 1:51 PM CDT Narrative [facility] - 12/24/2024 6:39 AM CDT Other indication->high risk per protocol Are special requirements needed? (All products are leukoreduced and CMV- safe)- >No Date required:-[id number] LRRBC # of [id number] Reasons:-Other (specify)} Michelle Barclay MD BLOOD BANK PRODUCT ORD ERABLES Final Result [facility] [address] Department [place] [address] * (ABNORMAL) Differential, auto (12/22/2024 9:41 AM CDT) Neutrophil abs 11.16(H) 1.50 - 6.50 K/cumm Imm gran abs 0.08 0.00 - 0.10 K/cumm [facility] Lymphocyte abs 0.72(L) 0.80 - 3.30 K/cumm [facility] Monocyte abs 0.79 0.20 - 0.80 K/cumm [facility] Eosinophil abs 0.06 0.00 - 0.50 K/cumm [facility] Basophil abs 0.03 0.00 - 0.10 K/cumm [facility] Neutrophil pct 86.9 % [facility] Comment: Interpretive Data Percent cell count reference ranges are not reported, since discordance with absolute values may lead to misinterpretation of CBC data. Current Interpretive Data was last revised on 2017. Imm gran pct 0.6 % [facility] Comment: Interpretive Data Percent cell count reference ranges are not reported, since discordance with absolute values may lead to misinterpretation of CBC data. Current Interpretive Data was last revised on 2017. Lymphocyte pct 5.6 % [facility] Comment: Interpretive Data Percent cell count reference ranges are not reported, since discordance with absolute values may lead to misinterpretation of CBC data. Current Interpretive Data was last revised on 2017. Monocyte pct 6.2 % [facility] Comment: Interpretive Data Percent cell count reference ranges are not reported, since discordance with absolute values may lead to misinterpretation of CBC data. Current Interpretive Data was last revised on 2017. Eosinophil pct 0.5 % [facility] Comment: Interpretive Data Percent cell count reference ranges are not reported, since discordance with absolute values may lead to misinterpretation of CBC data. Current Interpretive Data was last revised on 2017. Basophil pct 0.2 % [facility] Comment: Interpretive Data Percent cell count reference ranges are not reported, since discordance with absolute values may lead to misinterpretation of CBC data. Current Interpretive Data was last revised on 2017. Blood 12/22/2024 9:41 AM CDT 12/22/2024 9:46 AM CDT Derrick Mack MD LAB BLOOD ORDERABLES Final Resul t Performing Organization Address [facility]/ZIP Co de Phone Number [facility] [address] Department of [employer] [place] [address] * (ABNORMAL) CBC with auto differential (12/22/2024 9:41 AM CDT) WBC 12.84(H) 3.80 - 9.90 K/cumm Hgb 11.3(L) 11.9 - 15.5 g/dL [facility] Hct 32.5(L) 35.6 - 45.5 % [facility] Plt 190 150 - 400 K/cumm [facility] MPV 11.7 9.1 - 12.3 fL [facility] RBC 3.72(L) 3.90 - 5.20 M/cumm [facility] MCV 87.4 81.3 - 96.4 fL [facility] MCH 30.4 27.1 - 33.3 pg [facility] MCHC 34.8 32.3 - 35.7 g/dL [facility] RDW CV 11.9 11.1 - 14.9 % [facility] RDW SD 38.1 35.7 - 48.1 fL [facility] NRBC abs 0.00 0.00 - 0.01 K/cumm [facility] Blood 12/22/2024 9:41 AM CDT 12/22/2024 9:46 AM CDT us Derrick Mack MD LAB BLOOD ORDERABLES Final Resul t Performing Organization Address City/[facility]/ZIP Co de Phone Number [facility] [address] [place] [address] * RPR Blood (12/21/2024 9:44 PM CDT) RPR Nonreactive Nonreactive Comment:Testing performed by : [facility], [address] [facility] [address] [facility], [place]., [address] Blood 12/21/2024 9:44 PM CDT 12/22/2024 1:29 PM CDT Michelle Barclay MD LAB MICROBIOLOGY - GEN ERAL ORDERABLES Final Result Performing Organization Address City/[facility] Co de Phone Number [facility] [address] Department [place] [address] * Type and screen (12/21/2024 9:44 PM CDT) ABO Rh B Negative Brooke, indirect Negative [facility] Blood 12/21/2024 9:44 PM CDT 12/21/2024 10:22 PM CDT Michelle Barclay MD LAB BLOOD BANK TEST OR DERABLES Final Result Performing Organization Address [facility] de Phone Number [facility] [address] [facility] [place] [address] * (ABNORMAL) Urine culture Urine, clean voided (12/21/2024 7:07 PM CDT) Report Final Report: Growth indicates contamination with gram-positive malka. (.) Organism GROWTH INDICATES CONTAMINATION WITH GRAM-POS MALKA [facility] Urine, clean voided 12/21/2024 7:07 PM CDT 12/21/2024 7:07 PM CDT Michelle Barclay MD LAB MICROBIOLOGY - GEN ERAL ORDERABLES Final Result [facility] [address] [place] Department [place] [address] * (ABNORMAL) Urinalysis reflex to microscopic and culture Urine, clean voided (12/21/2024 7:05 PM CDT) Color, ur Straw Yellow Clarity, ur Clear Clear [facility] Specific gravity, ur 1.010 1.003 - 1.030 [facility] pH, urine 7.0 [facility] Comment: Interpretive Data U rine pH is affected by diet, medications, systemic acid-base disturbances, and renal tubular function. pH may affect urinary stone formation. For example, urine pH below 6.0 may help reduce the tendency for calcium phosphate stones and pH greater than 6.0 may reduce the tendency for uric acid stone formation. Source: [facility] Current Interpretive Data was last revised on 2017 Protein, ur ql Negative Negative [facility] Glucose, ur ql Negative Negative [facility] Ketones, ur Negative Negative [facility] Bilirubin, ur Negative Negative [facility] Blood, ur Negative Negative [facility] Urobilinogen, ur <2.0 <2.0 mg/dL [facility] Nitrite, ur Negative Negative [facility] Leukocyte esterase, ur 3+(A) Negative [facility] UA reflex comment Reflex to microscopic UA will be performed. [facility] Urine, clean voided 12/21/2024 7:05 PM CDT 12/21/2024 7:12 PM CDT Terrie Clark [facility] LAB MICROBIOLOGY - GENERAL ORDERABLES Final Result [facility] [address] Department [place] [address] * (ABNORMAL) Urinalysis, microscopic only (12/21/2024 7:05 PM CDT) WBC, ur 6-10(A) 0 - 5 /HPF RBC, ur 0-2 0 - 2 /HPF [facility] Epithelial cells, squamous, ur 1-5 0 - 5 /HPF [facility] Bacteria, ur 1+(A) [facility] Mucous, ur Present(A) [facility] Culture Reflex Comment Reflex conditions for urine culture (WBC >10) not met. [facility] Urine, clean voided 12/21/2024 7:05 PM CDT 12/21/2024 7:56 PM CDT Terrie Clark [facility] LAB URINE ORDERABLES Final Result Performing Organization Address [facility] Co de Phone Number [facility] [address] Department [place] [address] * eGFR (12/21/2024 5:52 PM CDT) eGFR [...] BLOOD ORDERABLES Final Result Performing Organization Address City/[facility]/ZIP Co de Phone Number [facility] [address] Department [place] [address] * (ABNORMAL) CBC without differential (12/21/2024 5:52 PM CDT) [facility] WBC 12.05(H) 3.80 - 9.90 K/cumm Hgb 11.4(L) 11.9 - 15.5 g/dL [facility] Hct 33.9(L) 35.6 - 45.5 % [facility] Plt 210 150 - 400 K/cumm [facility] MPV 11.7 9.1 - 12.3 fL [facility] RBC 3.82(L) 3.90 - 5.20 M/cumm [facility] MCV 88.7 81.3 - 96.4 fL [facility] MCH 29.8 27.1 - 33.3 pg [facility] MCHC 33.6 32.3 - 35.7 g/dL [facility] RDW CV 12.1 11.1 - 14.9 % [facility] RDW SD 38.5 35.7 - 48.1 fL [facility] NRBC abs 0.00 0.00 - 0.01 K/cumm [facility] Blood 12/21/2024 5:52 PM CDT 12/21/2024 6:03 PM CDT Terrie COLLADO LAB BLOOD ORDERABLES Final Result [facility] [address] Department [place] [address] * (ABNORMAL) Comprehensive metabolic panel (12/21/2024 5:52 PM CDT) [facility] Sodium 141 135 - 145 mmol/L Potassium, pl 3.4 3.3 - 4.9 mmol/L [facility] Chloride 108 97 - 110 mmol/L [facility] CO2 20(L) 22 - 32 mmol/L [facility] Anion gap 13 2 - 15 mmol/L [facility] BUN 9 6 - 25 mg/dL [facility] Creatinine 0.53(L) 0.60 - 1.10 mg/dL [facility] Glucose 80 70 - 199 mg/dL [facility] Comment: Interpretive Data Fasting glucose >/= 126 [...] classification and Diagnosis of Diabetes Diabetes Care 2021; 46: S19-S40. Current interpretive data was last revised 2022. Calcium 8.9 8.5 - 10.3 mg/dL [facility] Bilirubin, total 0.2 0.1 - 1.2 mg/dL [facility] Protein, pl 7.1 6.5 - 8.5 g/dL [facility] Albumin 3.4(L) 3.5 - 5.0 g/dL [facility] Alk phos 180(H) 40 - 130 Units/L [facility] ALT 13 7 - 45 Units/L [facility] AST 23 10 - 45 Units/L [facility] Comment:Slightly Hemolyzed S pecimen Blood 12/21/2024 5:52 PM CDT 12/21/2024 6:03 PM CDT Terrie COLLADO LAB BLOOD ORDERABLES Final Result [facility] [address] Department [place] [address] * POCT OB urine short dip (glucose, protein, ketones) (12/21/2024 3:23 PM CDT) Glucose, ur, POC Negative Negative Protein, ur, POC Negative Negative Ketones, ur, POC Negative Negative Lot Number [id number] Urine 12/21/2024 3:23 PM CDT Michelle Barclay MD POINT OF CARE TEST ORD ERABLES Final Result * nonstress test - (12/16/2024 3:47 PM CDT) us Kimi Billingsley DO OB GYNE ORDERABLES Final Resul t * (ABNORMAL) POCT urinalysis dipstick (12/16/2024 10:34 AM CDT) Glucose, ur, POC Negative Negative Bilirubin, ur, POC Negative Negative Ketones, ur, POC Negative Negative Specific [place], POC 1.010 1.003 - 1.030 Blood, ur, POC Negative Negative pH, ur, POC 7.0 5.0 - 8.0 Protein, ur, POC Negative Negative Urobilinogen, urine, POC 0.2 0.2 - 1.0 mg/dL Nitrite, ur, POC Negative Negative Leukocytes, ur, POC Small(A) Negative Lot Number [id number] Urine 12/16/2024 10:3 4 AM CDT us Kimi Billingsley DO POINT OF CARE TEST [...] continues to remain normal in appearance. BPP 02/18, reassuring testing. Narrative Procedure Note Kimi Billingsley DO - 12/16/2024 IMPRESSION: SIUP @ 36w 4d with positive cardiac activity. position is Vertex Interval growth has been appropriate AGA growth is noted with EFW at the 29%. Normal fluid. The placenta is anterior, there are no placental abnormalities identified. Bowel continues to remain normal in appearance. BPP 8/, reassuring testing. Michelle Barclay MD IMG OB US PROCEDURES F inal Result * Group B streptococcal culture Vaginal/Rectal (12/14/2024 7:01 PM CDT) Report Final Report: No Beta-streptoc occus Group B isolated Vaginal/Rectal 12/14/2024 7: 01 PM CDT 12/14/2024 7:02 PM CDT Michelle Barclay MD LAB MICROBIOLOGY - GEN ERAL ORDERABLES Final Result [facility] [address] Department [place] [address] * (ABNORMAL) POCT urinalysis dipstick (11/16/2024 8:24 AM CDT) Pathologist [facility] Glucose, ur, POC Negative Negative Bilirubin, ur, POC Negative Negative Ketones, ur, POC Negative Negative Specific [place], POC 1.015 1.003 - 1.030 Blood, ur, POC Negative Negative pH, ur, POC 7.0 5.0 - 8.0 Protein, ur, POC Negative Negative Urobilinogen, urine, POC 0.2 0.2 - 1.0 mg/dL Nitrite, ur, POC Negative Negative Leukocytes, ur, POC Small(A) Negative Lot Number [id number] Urine 11/16/2024 8:24 AM CDT Marsha Garcia NP POINT OF CARE TEST ALVAREZ LIZAMA Final Result * US OB BPP with US Follow Up (C) (11/16/2024 8:09 AM CDT) Pathologist [facility] Fetus# [id number] VIEWPOINT Estimated Weight 1,954 g&grams [...] no placental abnormalities identified. Narrative Procedure Note Jose Cruz Kimi, DO - 11/16/2024 IMPRESSION: SIUP @ 32w 1d with positive cardiac activity. position is Vertex interval growth has been appropriate. AGA growth is noted with EFW at the 46%. Bowel remains normal in appearance. Normal fluid. The placenta is anterior, there are no placental abnormalities identified. Result [facility] Michelle Barclay MD IMG OB US PROCEDURES F inal Result * POCT OB urine short dip (glucose, protein, ketones) (11/02/2024 4:07 PM CDT) Glucose, ur, POC Negative Negative MG/DL Protein, ur, POC Negative Negative Ketones, ur, POC Negative Negative Lot Number [id number] Urine 11/02/2024 4:07 PM CDT Result [facility] Michelle Barclay MD POINT OF CARE TEST ORD ERABLES Final Result * POCT OB urine short dip (glucose, protein, ketones) (10/19/2024 3:08 PM CDT) Glucose, ur, POC Negative Negative MG/DL Protein, ur, POC Negative Negative Ketones, ur, POC Negative Negative Lot Number [id number] Urine 10/19/2024 3:08 PM CDT Result [facility] Michelle Barclay MD POINT OF CARE TEST ORD ERABLES Edited Result - Final * (ABNORMAL) POCT urinalysis dipstick (10/19/2024 10:33 AM CDT) Glucose, ur, POC Negative Negative MG/DL Bilirubin, ur, POC Negative Negative, Small, Moderate, Large Ketones, ur, POC Negative Negative Specific [place], POC 1.015 1.003 - 1.030 Blood, ur, POC Negative Negative pH, ur, POC 7.0 5.0 - 8.0 Protein, ur, POC Negative Negative Urobilinogen, urine, POC 0.2 0.2 - 1.0 mg/dL Nitrite, ur, POC Negative Negative Leukocytes, ur, POC Small(A) Negative Lot Number [id number] Urine 10/19/2024 10:3 3 AM CDT Marsha Garcia NP POINT OF CARE TEST ALVAREZ LIZAMA Edited [...] identified. Narrative Procedure Note Kimi Billingsley, - 10/19/2024 IMPRESSION: SIUP @ 28w 1d [...] Hepatitis C antibody Blood (05/19/2024 10:09 AM OIL OPERATOR) Hep C Ab Nonreactive Nonreactive Comment: Interpretive [...] on 2019. Blood 05/19/2024 10:0 9 AM OIL OPERATOR 05/19/2024 1:53 PM OIL OPERATOR Mago WILHELM LAB MICROBIOLOGY - GENERA L ORDERABLES Final Result Performing Organization Address [facility] Co de Phone Number [facility] [address] [place] [address] * N. gonorrhoeae/C. trachomatis Amplification Urine (05/19/2024 10:03 AM OIL OPERATOR) C. trachomatis Not Detected Not Detected N. gonorrhoeae Not Detected Not Detected [facility] Comment: Interpretive Data This assay detects Chlamydia trachomatis and Neisseria gonorrhoeae by nucleic acid amplification testing (NAAT). This assay has been cleared by the [place] Food and Drug administration. The performance characteristics of this test have been verified by the [facility]. The performance characteristics of this test have not been evaluated in individuals less than 14 years of age. Current Interpretive Data last revised 2023. Urine 05/19/2024 10:0 3 AM OIL OPERATOR 05/19/2024 2:19 PM OIL OPERATOR Mago WILHELM LAB MICROBIOLOGY - GENERA L ORDERABLES Final Result Performing Organization Address [facility] Co de Phone Number [facility] [address] Department [place] [address] * Pap with reflex to High Risk HPV (02/05/2021 10:36 AM CDT) Swab (Pap test) 02/05/2021 1 0:36 AM CDT 02/05/2021 10:25 PM CDT Narrative [facility]OLOG[facility] - 02/08/2021 2:45 PM CDT EPIC results best viewed via link to PDF [address] [address] Tele: Mary Bravo MD - Pvc Loader CYTOLOGY REPORT Patient Name: CHAZ PIERRE [address]: [address] [place] [address] Gender: F : 2000 (Age: 21) Service: Location: N : [id number] [facility] #: [id number] Patient Type: [facility] [place] Taken: 02/05/2021 Reported: [...] LAB CYTOLOGY ORDERABLE S Final Result PATHOLOGY [facility] [place] [address] from Last 3 Months or Most Recently Relevant to Health Maintenance Insurance [facility] [employer] [place] [id number] [place] [id number] Advance Directives For more information, please contact: [phone] * Full Code (Latest Code Status on File) Date Activated Date Inactivated Comments 12/22/2024 6:11 PM 12/25/2024 6:34 PM * Full Code Date Activated Date Inactivated Comments 12/21/2024 9:33 PM 12/22/2024 6:11 PM Full CPR in case of cardiopulmonary arrest Care Teams Medical Reimbursement Manager Relationship Specialty Start Date End Date Abram French MD PCP - General Family Medicine 08/11/19 Michelle Barclay MD [id number] [address] Consulting Physician Obstetrics and Gynecology 12/25/24
--- OUTSIDE RECORDS SUMMARY | 2025-01-13 11:11 | XMS_ITS | Encounter Summary ---
Author Organization [facility] Healthcare Address [address] [place] [address] Care Team Providers Care Shell Fisherman Name Role Phone Abram French MD Primary Care Provider [phone] Michelle Anaya MD Unavailable [phone] Reason for Visit * Reason Onset Date Comments Appointment Request 01/13/2025 Encounter Details Date Type Department Care Team (Late st Contact Info) Description 01/13/[address] [facility] Family Medicine at [address] [place] [address] [address]vo [address] [address] Appointment Request Social History Tobacco Use Types Packs/Day Years [...] more drinks on one occasion? Never 09/23/2024 [place] Depression Scale Answer Date Recorded [place] Depression Scale Total 1 12/23/2024 The thought [...] on file Legal Sex Female 1:30 AM [employer] Gender Identity Not on file Sexual Orientation Straight 08/21/2020 10 :21 AM [employer] documented as of this encounter Miscellaneous Notes * Telephone Encounter - Pinky Estrella - 01/13/2025 9:18 AM CDT Appointment Request What visit type does the patient need? Visit Type: New Patient What is the reason for the visit? Re establish care What is the reason we were unable to schedule the appointment? Patient was last seen by practice more than three years ago on 05/11/19 and would like to re establish with magdi If applicable, were all members of the patient's PCP care team offered (e.g., nurse practioner(s), physician campus administrative assistant(s)) ? N/A Additional Comments: Patient was established with Magdi in 2019, she has not been seen since but isnow having left eye redness and swelling, and pain. She would like to re establish with Magdi, patient was directed to go to urgent care for current symptoms. Does message need to be routed? Yes-Action Needed documented in this encounter Plan of Treatment Not on file documented as of this encounter Visit Diagnoses Not on filedocumented in this encounter Care Teams Shell Fisherman Relationship Specialty Start Date End Date Abram French MD PCP - General Family Medicine 08/11/19 Michelle Anaya MD [address] [address] Consulting Physician Obstetrics and Gynecology 12/25/24 documented as of this encounter
[2025-01-13 11:15] VITALS: BP 112/75; PULSE 76; RESP 16; TEMP 36.6; O2SAT 100
== END 2025-01-13 11:21 | disposition home or self-care (01) ==
PROVIDERS: Emergency Provider Nurse Practitioner Family; PCP Family Medicine
DX: H00.024 Hordeolum internum left upper eyelid (principal)
CPT/HCPCS: 99213; G0463